=== PATIENT | female | born 1985 | race African-American/Black ===

== ENCOUNTER 2017-11-28 08:46 | Emergency (ER) | payer SELFPAY ==
[2017-11-28 08:55] VITALS: BP 108/59; BMI 25.5
--- NOTE | 2017-11-28 09:15 | DR.GENAD ---
HPI - PCP Primary Care Physician: MELISSA - Complaint/Symptoms Chief Complaint Doctors Comments: Patient admits to a can of pain falling on her left foot this morning. There is no swelling or erythema. Chief Complaint:: WAS MOVING AND PAINTING THIS MORNING AND A CAN OF PAINT FELL OVER AND LANDED ON HER LEFT FOOT - Source History Provided: Patient - Mode of Arrival Mode of Arrival: Ambulatory - Timing Onset of Chief Complaint: 11/28/17 PMH - PMH Past Medical History: Yes Past Medical History: Diabetes Past Surgical History: Yes Surgical History: No History - Family History History of Family Medical Conditions: Yes Family Medical History: Diabetes Mellitus - Social History Does patient currently use any type of tobacco product: No Have you used tobacco products in the last 12 months: No Type of Tobacco Use: None Does any household member use tobacco: No Alcohol Use: None Do you use any recreational Drugs:: No Lives With: Family Lives Where: Home - infectious screening In the last 2 months have you had wt loss of >10#?: NO Have you had fever, night sweats or hemotysis?: No Have you traveled outside the country in the last 6 months?: No Isolation: Standard ROS - Review of Systems Eyes: No Symptoms Reported ENTM: No Symptoms Reported Respiratoy: No Symptoms Reported Cardiovascular: No Symptoms Reported Gastrointestinal/Abdominal: No Symptoms Reported Genitourinary: No Symptoms Reported Neurological: No Symptoms Reported Musculoskeletal: No Symptoms Reported Integumentary: No Symptoms Reported Hematologic/Lymphatic: No Symptoms Reported Endocrine: No Symptoms Reported Psychiatric: No Symptoms Reported All Other Systems: Reviewed and Negative PE - Vital Signs Vitals: Temperature 98.3 F Pulse Rate 104 Respiratory Rate 20 Blood Pressure [Left Arm] 121/73 Blood Pressure [Right Arm] 112/68 Blood Pressure 108/59 O2 Sat by Pulse Oximetry 100 - General General Appearance: Alert, In No Apparent Distress - Head Head Exam: Normal Inspection, Atraumatic - Eyes Eye exam: Normal Appearance, PERRL, EOMI - ENT ENT Exam: Normal Exam, Normal Oropharynx External Ear Exam: Normal External Inspection TM/Canal Exam: Bilateral Normal Nose Exam: Normal Nose Exam Mouth Exam: Normal Inspection Throat Exam: Normal Inspection - Neck Neck Exam: Normal Inspection - Chest Chest Inspection: Normal Inspection, Symmetric Chest Wall Rise - Respiratory Respiratory Exam: Normal Lung Sounds Bilat Respiratory Exam: Bilateral Clear to Auscultation - Cardiovascular Cardiovascular Exam: Regular Rate, Normal Rhythm - Abdominal Exam Abdominal Exam: Normal Inspection, Normal Bowel Sounds Abdominal Tenderness: negative: RUQ, RLQ, LUQ, LLQ, Epigastrium, Suprapubic, Diffuse, Mild, Moderate, Severe, Other - Extremities Extremities Exam: Full ROM, Tenderness (mid foot of left lower extremity) - Back Back Exam: Normal Inspection - Neurologic Neurological Exam: Alert, Oriented X3, CN II-XII Intact - Psychiatric Psychiatric Exam: Normal Affect, Normal Mood - Skin Skin Exam: Warm, Dry, Intact ROR - XRAY XRAY Interpreted by: Self (Foot: negative) - Diagnosis Discharge Problem: Contusion of foot, right Qualifiers: Encounter type: initial encounter Qualified Code(s): S90.31XA - Contusion of right foot, initial encounter - Discharge Plan Condition: Stable - Follow ups/Referrals Follow ups/Referrals: Chavez TORRES [Primary Care Provider] - 3 days - Instructions
--- NOTE | 2017-11-28 09:53 | RAD ---
HISTORY: Blunt trauma left great toe Study: Left foot AP, lateral, oblique Comparison: None Findings: There is no evidence for fracture, lytic, or blastic lesion. No erosive arthritis or soft tissue abno rmality is identified. The tarsal bones are intact and normally aligned. The left great toe is intact . IMPRESSION: No significant abnormality identified Reported By:
== END 2017-11-28 10:09 | disposition home or self-care (01) ==
LOC: ER 09:00
DX: S90.31XA Contusion of right foot, initial encounter (principal); W19.XXXA Unspecified fall, initial encounter; Y92.9 Unspecified place or not applicable
CPT/HCPCS: 73630; 99282

== ENCOUNTER 2019-02-04 16:28 | Inpatient (IN) ==
[~2019-02-04 16:28] MED LIST: DIPRIVAN VIAL ONE; EPHEDRINE SULFATE INJ ONE; NEOSTIGMINE INJ ONE; NORCURON INJ 10 MG VIAL ONE; NS 1000 ML 1,000 ML IV ONE; QUELICIN (OR ANECTINE) ONE; ROBINUL ONE; SUPRANE ONE; ZOFRAN INJ 4 MG VIAL ONE
[2019-02-04] MEDS ORDERED: NS 1000 ML 1,000 ML ONE (16:49)
[2019-02-04] MEDS: DILAUDID INJ IVP PRN ×4 (17:00→19:10)
[2019-02-04 17:17] VITALS: BMI 27.1
[2019-02-04] MEDS ORDERED: LR 1000 ML IV 1,000 ML ONE (17:40)
[2019-02-04] MEDS ORDERED: D5 1/2 NS 1L W PITOCIN 20 UNITS/L 20 UNITS/1,000 ML BAG IV ONE ×2 (17:40→18:40)
[2019-02-04] MEDS ORDERED: ANCEF 1 GRAM IV PREMIX* 1 G/50 ML BAG IV ONE (17:40)
[2019-02-04] MEDS ORDERED: FENTANYL INJ 250 mcg ONE (17:51)
[2019-02-04] MEDS ORDERED: PITOCIN ONE (18:40)
[2019-02-04] MEDS ORDERED: REGLAN INJ 10 MG VIAL IVP PRN (18:42)
[2019-02-04] MEDS ORDERED: BENADRYL INJ 50 MG VIAL IVP PRN (18:42)
[2019-02-04] MEDS ORDERED: PHENERGAN INJ 25 MG IM PRN (18:42)
[2019-02-04] MEDS ORDERED: ZOFRAN INJ 4 MG VIAL IVP PRN (18:42)
[2019-02-04] MEDS ORDERED: DILAUDID INJ ONE ×2 (18:52→19:09)
[2019-02-04 19:35] LABS: ALANINE AMINOTRANSFERASE 8 Units/L (12-78); ALBUMIN 2.1 g/dL (3.4-5.0); ALKALINE PHOSPHATASE 75 Units/L (46-116); ASPARTATE AMINO TRANSFERASE 12 Units/L (15-37); BASOPHILS % (AUTO) 0.3 % (0.2-1.0); BLOOD UREA NITROGEN 5 mg/dL (7-18); CARBON DIOXIDE 22.5 mmol/L (21-32); CHLORIDE 105 mmol/L (98-107); COR CA(FOR HYPOALB) 9.5 mg/dL (8.5-10.1); COR NA(FOR HYPERGLY) 143 mmol/L (136-145); CREATININE 0.59 mg/dL (0.55-1.02); EOSINOPHILS # (AUTO) 0.1 x10^3/uL (0.0-0.2); EOSINOPHILS % (AUTO) 0.6 % (0.9-2.9); HEMATOCRIT 34.9 % (36.0-47.0); HEMOGLOBIN 11.5 g/dL (12.0-16.0); LYMPHOCYTES # (AUTO) 1.6 X10^3/uL (1.3-2.9); LYMPHOCYTES % (AUTO) 16.1 % (21.0-51.0); MEAN CORPUSCULAR HEMOGLOBIN 29.3 pg (27.0-34.0); MEAN CORPUSCULAR VOLUME 88.9 fL (80.0-100.0); MONOCYTES # (AUTO) 0.7 x10^3/uL (0.3-0.8); MONOCYTES % (AUTO) 6.8 % (0.0-13.0); NEUTROPHILS # (AUTO) 7.7 x10^3/uL (2.2-4.8); NEUTROPHILS % (AUTO) 76.2 % (42.0-75.0); PLATELET COUNT 186 X10^3/uL (150.0-450.0); RED BLOOD COUNT 3.92 X10^6/uL (3.5-5.4); RED CELL DISTRIBUTION WIDTH 12.2 % (11.6-16.5); SODIUM 138 mmol/L (136-145); TOTAL PROTEIN 5.5 g/dL (6.4-8.2); WHITE BLOOD COUNT 10.1 X10^3/uL (3.6-10.0); eGFR NON BLACK RACES > 60 (>60)
[2019-02-04] MEDS: SNACK - Diabetic Appropriate PO SCH (20:00)
[2019-02-04] MEDS ORDERED: D5 1/2 NS 1000 ML 1,000 ML with PITOCIN 20 UNITS IV SCH ×2 (20:00)
[2019-02-04] MEDS: MORPHINE SULFATE INJ 10 MG IVP PRN ×2 (20:18→23:58)
[2019-02-04] MEDS: ZANTAC PO SCH (20:19)
[2019-02-04] MEDS: HumuLIN R SUBCUT PRN (21:33)
[2019-02-05] MEDS ORDERED: MORPHINE SULFATE INJ 10 MG IVP PRN (00:18)
[2019-02-05] MEDS ORDERED: XANAX PO ONE (01:36)
[2019-02-05] MEDS ORDERED: XANAX ONE (01:47)
[2019-02-05] MEDS ORDERED: MORPHINE SULFATE INJ 10 MG ONE (04:24)
[2019-02-05] MEDS ORDERED: D5 1/2 NS 1000 ML 1,000 ML with PITOCIN 20 UNITS IV SCH ×2 (05:00)
[2019-02-05 05:19] LABS: BASOPHILS % (AUTO) 0.2 % (0.2-1.0); HEMATOCRIT 31.6 % (36.0-47.0); HEMOGLOBIN 10.5 g/dL (12.0-16.0); LYMPHOCYTES # (AUTO) 1.1 X10^3/uL (1.3-2.9); LYMPHOCYTES % (AUTO) 8.8 % (21.0-51.0); MEAN CORPUSCULAR HEMOGLOBIN 29.7 pg (27.0-34.0); MEAN CORPUSCULAR HGB CONC 33.1 g/dL (33.0-35.0); MEAN CORPUSCULAR VOLUME 89.8 fL (80.0-100.0); MEAN PLATELET VOLUME 9.1 fL (7.4-11.0); MONOCYTES % (AUTO) 7.4 % (0.0-13.0); NEUTROPHILS # (AUTO) 10.8 x10^3/uL (2.2-4.8); NEUTROPHILS % (AUTO) 83.6 % (42.0-75.0); PLATELET COUNT 190 X10^3/uL (150.0-450.0); RED BLOOD COUNT 3.52 X10^6/uL (3.5-5.4); RED CELL DISTRIBUTION WIDTH 12.3 % (11.6-16.5); WHITE BLOOD COUNT 12.9 X10^3/uL (3.6-10.0)
[2019-02-05] MEDS: HumuLIN R SUBCUT PRN ×2 (05:32→17:18)
[2019-02-05] MEDS ORDERED: MOTRIN TAB 800 MG PO PRN (08:00)
[2019-02-05] MEDS: COLACE CAP 100 MG PO SCH ×2 (09:25→21:30)
[2019-02-05] MEDS: ZANTAC PO SCH ×2 (09:26→21:30)
[2019-02-05] MEDS: PRENATAL PLUS PO SCH (09:26)
[2019-02-05] MEDS ORDERED: PERCOCET TAB 5/325 MG ONE ×2 (09:29→09:30)
[2019-02-05] MEDS: BACTROBAN CREAM TOP SCH ×2 (13:58→21:32)
[2019-02-05] MEDS: PERCOCET TAB 5/325 MG PO PRN ×2 (15:36→21:47)
[2019-02-05] MEDS: FERROUS GLUCONATE PO SCH (16:36)
[2019-02-05] MEDS ORDERED: PERCOCET TAB 5/325 MG PO PRN (19:15)
[2019-02-05] MEDS: SNACK - Diabetic Appropriate PO SCH (20:00)
[2019-02-05] MEDS ORDERED: LANTUS SC SCH (21:00)
[2019-02-06] MEDS: BACTROBAN CREAM TOP SCH ×2 (05:37→13:23)
[2019-02-06] MEDS: FERROUS GLUCONATE PO SCH ×2 (08:59→16:03)
[2019-02-06] MEDS: ZANTAC PO SCH (08:59)
[2019-02-06] MEDS: COLACE CAP 100 MG PO SCH (08:59)
[2019-02-06] MEDS: PRENATAL PLUS PO SCH (08:59)
[2019-02-06] MEDS: PERCOCET TAB 5/325 MG PO PRN ×2 (09:00→15:52)
[2019-02-06] MEDS ORDERED: ADACEL or BOOSTRIX TDaP VACCINE IM ONE ×2 (09:13→12:26)
[2019-02-06 16:13] VITALS: BP 110/71
[2019-02-06] MEDS: HumuLIN R SUBCUT PRN (17:12)
== END 2019-02-06 18:05 | disposition home or self-care (01) | DRG 783 ==
LOC: ER 16:28 → LD 17:00 → MED/SURG 19:18
PROVIDERS: ADMIT Obstetrics & Gynecology Obstetrics; ATTEND Specialist
DX: Z37.0 Single live birth; Z30.2 Encounter for sterilization; O24.12 Pre-existing type 2 diabetes mellitus, in childbirth; Z23 Encounter for immunization; O60.13X0 Preterm labor second trimester with preterm delivery third trimester, not applicable or unspecified; Z3A.29 29 weeks gestation of pregnancy; O77.9 Labor and delivery complicated by fetal stress, unspecified
CPT/HCPCS: 36415; 80053; 84132; 85025; 86592; 86850; 86900; 86901; 90715; 96365; 99284; A4216; A4222; S0197; J0330; J0690; J1170; J1815; J2270; J2405; J2590; J2704; J2710; J3010; J3490; J7030; J7120; S5010

== ENCOUNTER 2019-02-23 10:45 | Inpatient (IN) ==
--- NOTE | 2019-02-23 13:20 | DR.H&P ---
H&P - History & Physical for Day of: H&P Date: 02/23/19 - Chief Complaint Chief Complaint: FEVER, ABDOMINAL PAIN, ABSCESS TO RIGHT BUTTOCK NEAR "BUTT CREASE" - History of Present Illness History of Present Illness: 33 BF DIRECT ADMIT FROM DR GUILLEN OFFICE AFTER PRESENTING FOR ER FOLLOW UP CO ABSCESS TO RIGHT SIDE OF BUTTOCK NEAR RECTUM WITH SEVERE TENDERNESS AND CO FEVER AND FATIGUE. PT WAS SEEN IN ER 2 DAYS AGO AND GIVEN PO BACTRIM WITHOUT IMPROVEMENT. PT STATES HER ABDOMEN IS TIGHT AND VERY TENDER. PT HAS EMERGENCY C SECTION IN JANUARY ~09/07 LABOR AT 29 WEEKS. PT HAS PMH OF DM. PT STATES FEVER 102 WITH NO APPETITE, FEELS WEAK AND ALOT OF PAIN. - Past Medical History Past Medical History: Diabetes - Past Surgical History Surgical History: - Family History Family Medical History: Diabetes Mellitus - Social History Does patient currently use any type of tobacco product: No Have you used tobacco products in the last 12 months: No Type of Tobacco Use: None Does any household member use tobacco: No Alcohol Use: None Drug Use: None - Medications Home Medications: No Known Drug Allergies Allergy (Verified 02/04/19 17:17) - Review of Systems Constitutional: Fever, Chills, Sweats, Weakness, Malaise Eyes: No Symptoms Reported ENT: No Symptoms Reported Respiratory: SOB with Excertion Cardiovascular: No Symptoms Reported Gastrointestinal: Abdominal Pain Genitourinary: No Symptoms Reported Musculoskeletal: No Symptoms Reported Skin: Other (ABSCESS ) Neurological: Weakness - Physical Exam Vital Signs: Blood Pressure [Left Arm] 95/59 Blood Pressure [Right Arm] 95/61 Blood Pressure 95/59 Oriented: Normal Eyes: Normal Ear: Normal Nose: Normal Throat: Normal Respiratory: RLL Diminished, LLL Diminished Cardiovascular: Normal : Normal Auscultation: Bowel Sounds: Normal Palpation: Normal Tenderness: Diffuse, Severe Skin: Decreased Turgur, Red (RIGHT BUTTOCK NEAR RIGHT LABIAL), Tender, Hot, Other (CSECTION WOUND, HEALING) Musculoskeletal: Normal Speech Pattern: Clear - Assessment/Plan (1) Abdominal pain Status: Acute Plan: ADMIT, ADMISSION LABS. CBC CMP BC, UA UC. CT ABD/PELVIS WITH CONTRAST. PT IS POST CSECTION ON 02/04 WITH CO ABDOMINAL DISTENTION AND PAIN WITH FEVER, IV ATBX THERAPY, IV HYDRATION (2) Perineal abscess Status: Acute Plan: SEE CULTURE FROM ER VISIT. IV LEVAQUIN, SURGICAL CONSULT (3) Fever Status: Acute (4) Diabetes Status: Chronic - Allergies Allergies/Adverse Reactions: Allergies Allergy/AdvReac Type Severity Reaction Status Date / Time No Known Drug Allergies Allergy Verified 02/04/19 17:17
[2019-02-23] MEDS ORDERED: NS 500 ML IV 500 ML ONE (13:47)
--- NOTE | 2019-02-23 13:59 | RAD ---
History: Dyspnea on exertion Study: PA chest Comparison: May 12, 2016 Findings: The lungs are clear and the heart and mediastinum are unremarkable. There is no edema or effusion or congestion. No bony abnormality is demonstrated. Impression: No evidence for acute cardiopulmonary disease Reported By:
[2019-02-23 14:00] LABS: BASOPHILS # (AUTO) 0.2 X10^3/uL (0.0-0.1); BASOPHILS % (AUTO) 1.2 % (0.2-1.0); EOSINOPHILS % (AUTO) 0.3 % (0.9-2.9); HEMATOCRIT 28.7 % (36.0-47.0); HEMOGLOBIN 9.2 g/dL (12.0-16.0); LYMPHOCYTES # (AUTO) 1.5 X10^3/uL (1.3-2.9); LYMPHOCYTES % (AUTO) 10.6 % (21.0-51.0); MEAN CORPUSCULAR HEMOGLOBIN 26.8 pg (27.0-34.0); MEAN CORPUSCULAR HGB CONC 32.1 g/dL (33.0-35.0); MEAN CORPUSCULAR VOLUME 83.4 fL (80.0-100.0); MEAN PLATELET VOLUME 7.7 fL (7.4-11.0); MONOCYTES % (AUTO) 6.7 % (0.0-13.0); NEUTROPHILS # (AUTO) 11.8 x10^3/uL (2.2-4.8); NEUTROPHILS % (AUTO) 81.2 % (42.0-75.0); PLATELET COUNT 636 X10^3/uL (150.0-450.0); RED BLOOD COUNT 3.44 X10^6/uL (3.5-5.4); RED CELL DISTRIBUTION WIDTH 15.2 % (11.6-16.5); WHITE BLOOD COUNT 14.5 X10^3/uL (3.6-10.0)
[2019-02-23] MEDS: LEVAQUIN PREMIX IV 750 MG 750 MG/150 ML BAG IV SCH (14:03)
[2019-02-23] MEDS: TORADOL 15 MG VIAL IVP SCH ×2 (14:03→21:43)
[2019-02-23] MEDS: ZOLOFT PO SCH (14:03)
[2019-02-23 14:13] LABS: ALANINE AMINOTRANSFERASE 13 Units/L (12-78); ALBUMIN 2.2 g/dL (3.4-5.0); ALKALINE PHOSPHATASE 240 Units/L (46-116); ASPARTATE AMINO TRANSFERASE 11 Units/L (15-37); BLOOD UREA NITROGEN 4 mg/dL (7-18); CALCIUM 9.3 mg/dL (8.5-10.1); CHLORIDE 97 mmol/L (98-107); COR CA(FOR HYPOALB) 10.7 mg/dL (8.5-10.1); COR NA(FOR HYPERGLY) 139 mmol/L (136-145); CREATININE 0.64 mg/dL (0.55-1.02); SODIUM 135 mmol/L (136-145); TOTAL PROTEIN 8.6 g/dL (6.4-8.2); eGFR NON BLACK RACES > 60 (>60)
[2019-02-23] MEDS: PEPCID 20 MG IV PREMIX* 20 MG/50 ML BAG IV SCH ×2 (14:23→21:42)
[2019-02-23] MEDS: NS 500 ML IV 500 ML IV SCH (14:24)
[2019-02-23] MEDS ORDERED: NS 100 ML IV 100 ML ONE (16:11)
[2019-02-23 16:18] VITALS: BMI 26.4
[2019-02-23] MEDS: MORPHINE SULFATE INJ 2 MG INJ IVP PRN (16:50)
--- NOTE | 2019-02-23 16:53 | CT ---
CT OF THE ABDOMEN AND PELVIS WITH CONTRAST HISTORY: Abdominal pain and fever status post Comparison: None Technique: Multiple axial images of the abdomen and pelvis were obtained from the lung bases to the pubic symphysis follow the administration of IV contrast as well as oral contrast. Dose reduction techniques including Automated Exposure Control (AEC) and adjustment of mA and kV were utlized. Findings: The heart is normal in size. There is no pericardial effusion. Lung bases are clear without focal consolidation, pleural effusion or pneumothorax. Liver and spleen are normal in size, enhancement characteristics and contour. No focal lesions. The portal vein is patent. No ductal dilitation. Gallbladder is present. No calcified gallstones or gallbladder wall thickening. The pancreas is unremarkable. Adrenal glands are normal. Kidneys enhance symmetrically without hydronephrosis or nephrolithiasis. No bowel obstruction or inflammation. No abnormal appearing mesenteric or retroperitoneal lymph nodes. No free fluid or fluid collections. The bladder is normal in appearance. There appears to be a large defect in the anterior uterine wall with fluid and gas communicating between this defect and a multi-cystic loculated mass that appears to expand the rectus abdominus muscles. This defect in the uterus is seen best on series 4, image 59. The loculated fluid collection measures approximately 11 x 9 x 6 cm. No aggressive osseous lesions. IMPRESSION: 1. Findings as above highly concerning for severe endometritis with anterior wall uterine rupture and decompression of infection into the anterior abdominal wall where there is now a large loculated abscess within the anterior abdominal wall musculature. Recommend immediate RUBBER COMPOUNDER SUPERVISOR consultation. Reported By:
[2019-02-23] MEDS: FLAGYL IV PREMIX 500 MG BAG 500 MG/100 ML BAG IV SCH (21:42)
[2019-02-24] MEDS ORDERED: ZOSYN VIAL 4.5 GRAMS IV ONE (00:04)
[2019-02-24] MEDS ORDERED: NS 100 ML IV + SPIKE MINIBAG* 100 ML ONE (00:26)
[2019-02-24 06:20] LABS: BASOPHILS % (AUTO) 0.3 % (0.2-1.0); EOSINOPHILS # (AUTO) 0.1 x10^3/uL (0.0-0.2); EOSINOPHILS % (AUTO) 0.5 % (0.9-2.9); HEMOGLOBIN 8.3 g/dL (12.0-16.0); LYMPHOCYTES # (AUTO) 1.3 X10^3/uL (1.3-2.9); MEAN CORPUSCULAR HEMOGLOBIN 26.7 pg (27.0-34.0); MEAN CORPUSCULAR HGB CONC 31.9 g/dL (33.0-35.0); MEAN CORPUSCULAR VOLUME 83.7 fL (80.0-100.0); MEAN PLATELET VOLUME 8.1 fL (7.4-11.0); MONOCYTES # (AUTO) 1.3 x10^3/uL (0.3-0.8); MONOCYTES % (AUTO) 9.2 % (0.0-13.0); NEUTROPHILS # (AUTO) 11.8 x10^3/uL (2.2-4.8); PLATELET COUNT 524 X10^3/uL (150.0-450.0); RED CELL DISTRIBUTION WIDTH 15.5 % (11.6-16.5); WHITE BLOOD COUNT 14.6 X10^3/uL (3.6-10.0)
[2019-02-24] MEDS: FLAGYL IV PREMIX 500 MG BAG 500 MG/100 ML BAG IV SCH ×3 (06:20→21:47)
[2019-02-24] MEDS: TORADOL 15 MG VIAL IVP SCH (06:20)
[2019-02-24 06:34] LABS: ALANINE AMINOTRANSFERASE 13 Units/L (12-78); ALBUMIN 1.8 g/dL (3.4-5.0); ALKALINE PHOSPHATASE 228 Units/L (46-116); ASPARTATE AMINO TRANSFERASE 14 Units/L (15-37); BLOOD UREA NITROGEN 4 mg/dL (7-18); CALCIUM 8.5 mg/dL (8.5-10.1); CARBON DIOXIDE 27.8 mmol/L (21-32); CHLORIDE 98 mmol/L (98-107); COR CA(FOR HYPOALB) 10.3 mg/dL (8.5-10.1); COR NA(FOR HYPERGLY) 139 mmol/L (136-145); CREATININE 0.58 mg/dL (0.55-1.02); SODIUM 134 mmol/L (136-145); TOTAL PROTEIN 7.2 g/dL (6.4-8.2); eGFR NON BLACK RACES > 60 (>60)
[2019-02-24 07:07] LABS: PLATELET MORPHOLOGY COMMENT NORMAL (NORMAL)
[2019-02-24 08:06] LABS: BILIRUBIN,URINE NEGATIVE (NEGATIVE); BLOOD/HEMOGLOBIN,URINE 5+ (NEGATIVE); GLUCOSE, URINE 4+ (NEGATIVE); KETONES,URINE 3+ (NEGATIVE); LEUKOCYTE ESTERASE ,URINE 3+ (NEGATIVE); NITRITES,URINE NEGATIVE (NEGATIVE); PROTEIN,URINE 2+ (NEGATIVE); UROBILINOGEN,URINE NORMAL (NORMAL)
[2019-02-24 08:07] LABS: APPEARANCE,URINE HAZY (CLEAR); COLOR,URINE YELLOW (YELLOW)
[2019-02-24 08:13] LABS: BACTERIA,URINE TRACE /HPF (NEGATIVE); SQUAMOUS EPITHELIAL CELL,UR MODERATE /HPF (NEGATIVE)
[2019-02-24] MEDS: LEVAQUIN PREMIX IV 750 MG 750 MG/150 ML BAG IV SCH (09:22)
[2019-02-24] MEDS: PEPCID 20 MG IV PREMIX* 20 MG/50 ML BAG IV SCH ×2 (09:23→21:48)
[2019-02-24] MEDS: ZOSYN VIAL 4.5 GRAMS 4.5 G in NS 100 ML IV + SPIKE MINIBAG* 100 ML IV SCH ×3 (09:25→21:47)
[2019-02-24] MEDS: ZOLOFT PO SCH (11:38)
[2019-02-24] MEDS: HumuLIN R SUBCUT PRN ×2 (12:24→17:23)
[2019-02-24] MEDS: BACTROBAN CREAM TOP SCH ×2 (14:00→21:49)
[2019-02-24] MEDS: MORPHINE SULFATE INJ 2 MG INJ IVP PRN (18:15)
[2019-02-24] MEDS: SNACK - Diabetic Appropriate PO SCH (21:48)
[2019-02-24] MEDS: NS 500 ML IV 500 ML IV SCH (21:49)
[2019-02-24] MEDS ORDERED: COLACE CAP 100 MG PO PRN (21:53)
[2019-02-24] MEDS ORDERED: COLACE CAP 100 MG PO ONE (22:03)
[2019-02-24] MEDS: ZOFRAN INJ 4 MG VIAL IVP PRN (22:36)
[2019-02-25] MEDS ORDERED: K-RIDER 10 MEQ/NS 100 ML 10 MEQ/100 ML BAG IV PRN (00:04)
[2019-02-25] MEDS ORDERED: MICRO K EXTEN CAP 10 MEQ PO PRN (00:04)
[2019-02-25] MEDS ORDERED: POTASSIUM CHL 60 MEQ/NS 0.45% 500 ML IV PRN (00:04)
[2019-02-25] MEDS ORDERED: POTASSIUM CHL 40 MEQ/NS 0.45% 500 ML IV PRN (00:04)
[2019-02-25] MEDS ORDERED: POTASSIUM CHLORIDE LIQ 20 MEQ UDC PO PRN (00:04)
[2019-02-25] MEDS: MORPHINE SULFATE INJ 2 MG INJ IVP PRN (01:09)
[2019-02-25] MEDS ORDERED: POTASSIUM CHLORIDE LIQ 20 MEQ UDC ONE (01:22)
[2019-02-25] MEDS ORDERED: K-DUR TAB 20 MEQ ONE (01:53)
[2019-02-25] MEDS ORDERED: MAGNESIUM SULFATE 1 GRAM/100 mL PREMIX 2 G/200 ML BAG IV ONE (01:54)
[2019-02-25] MEDS: KLOR-CON PO PRN (02:00)
[2019-02-25] MEDS: MAGNESIUM SULFATE 1 GRAM/100 mL PREMIX 1 GM/100 ML BAG IV PRN ×2 (02:18→03:30)
[2019-02-25] MEDS: FLAGYL IV PREMIX 500 MG BAG 500 MG/100 ML BAG IV SCH ×3 (05:08→22:00)
[2019-02-25] MEDS: BACTROBAN CREAM TOP SCH ×3 (05:08→22:00)
[2019-02-25] MEDS: ZOSYN VIAL 4.5 GRAMS 4.5 G in NS 100 ML IV + SPIKE MINIBAG* 100 ML IV SCH ×3 (06:06→22:00)
[2019-02-25] MEDS: HumuLIN R SUBCUT PRN ×3 (06:06→17:06)
[2019-02-25 06:12] LABS: BASOPHILS # (AUTO) 0.1 X10^3/uL (0.0-0.1); EOSINOPHILS % (AUTO) 0.1 % (0.9-2.9); HEMATOCRIT 24.9 % (36.0-47.0); LYMPHOCYTES # (AUTO) 1.5 X10^3/uL (1.3-2.9); LYMPHOCYTES % (AUTO) 9.9 % (21.0-51.0); MEAN CORPUSCULAR HEMOGLOBIN 26.8 pg (27.0-34.0); MEAN CORPUSCULAR HGB CONC 32.3 g/dL (33.0-35.0); MEAN CORPUSCULAR VOLUME 83.1 fL (80.0-100.0); MEAN PLATELET VOLUME 7.7 fL (7.4-11.0); MONOCYTES % (AUTO) 6.4 % (0.0-13.0); NEUTROPHILS # (AUTO) 12.8 x10^3/uL (2.2-4.8); NEUTROPHILS % (AUTO) 82.6 % (42.0-75.0); PLATELET COUNT 528 X10^3/uL (150.0-450.0); RED BLOOD COUNT 2.99 X10^6/uL (3.5-5.4); RED CELL DISTRIBUTION WIDTH 15.8 % (11.6-16.5); WHITE BLOOD COUNT 15.4 X10^3/uL (3.6-10.0)
[2019-02-25 06:29] LABS: ALANINE AMINOTRANSFERASE 11 Units/L (12-78); ALBUMIN 1.8 g/dL (3.4-5.0); ALKALINE PHOSPHATASE 247 Units/L (46-116); ASPARTATE AMINO TRANSFERASE 12 Units/L (15-37); BLOOD UREA NITROGEN 3 mg/dL (7-18); CALCIUM 8.4 mg/dL (8.5-10.1); CARBON DIOXIDE 28.3 mmol/L (21-32); CHLORIDE 100 mmol/L (98-107); COR CA(FOR HYPOALB) 10.2 mg/dL (8.5-10.1); COR NA(FOR HYPERGLY) 143 mmol/L (136-145); CREATININE 0.64 mg/dL (0.55-1.02); SODIUM 136 mmol/L (136-145); TOTAL PROTEIN 7.2 g/dL (6.4-8.2); eGFR NON BLACK RACES > 60 (>60)
[2019-02-25 06:52] LABS: PLATELET MORPHOLOGY COMMENT NORMAL (NORMAL)
[2019-02-25] MEDS: LEVAQUIN PREMIX IV 750 MG 750 MG/150 ML BAG IV SCH (09:18)
[2019-02-25] MEDS: ZOLOFT PO SCH (09:18)
[2019-02-25] MEDS: PEPCID 20 MG IV PREMIX* 20 MG/50 ML BAG IV SCH ×2 (09:18→20:56)
--- NOTE | 2019-02-25 10:35 | DR.PROGNOT ---
Hospital Progress Notes - Progress Note for Day of: Progress Note Date: 02/25/19 - Chief Complaint Chief Complaint: moderate drainage from perianal abscess . pain is much better . no fever today . - Past Medical Family Social History Past Med/Fam/Surg Hx: No changes since H&P Allergies: Allergies No Known Drug Allergies Allergy (Verified 02/04/19 17:17) - Review Of Systems ROS: No change since H&P - Vital Signs Vital Signs: Temperature 98.3 F Pulse Rate [Radial] 103 Respiratory Rate 20 Blood Pressure [Left Arm] 100/60 Blood Pressure [Right Arm] 95/61 Blood Pressure 95/59 O2 Sat by Pulse Oximetry 98 - Physical Exam Oriented: Normal Eyes: Normal Ear: Normal Nose: Normal Throat: Normal Cardiovascular: Normal : Normal GI:Auscultation: Normal GI:Palpation: Normal GI: Tenderness: Diffuse (.) Skin: Decreased Turgur, Tender, Hot, Other (rectal exam : improving perianal abscess with soft skin , mild tenderness ) Musculoskeletal: Normal Speech Pattern: Clear, Appropriate - Laboratory and Diagnostics Result Diagrams: 02/25/19 05:27 02/25/19 05:27 Labs: 02/23/19 13:49 Blood Blood Culture - Preliminary 02/23/19 13:41 Blood Blood Culture - Preliminary Laboratory WBC 15.4 X10^3/uL (3.6-10.0) H 02/25/19 05:27 RBC 2.99 X10^6/uL (3.5-5.4) L 02/25/19 05:27 Hgb 8.0 g/dL (12.0-16.0) L 02/25/19 05:27 Hct 24.9 % (36.0-47.0) L 02/25/19 05:27 MCV 83.1 fL (80.0-100.0) 02/25/19 05:27 MCH 26.8 pg (27.0-34.0) L 02/25/19 05:27 MCHC 32.3 g/dL (33.0-35.0) L 02/25/19 05:27 RDW 15.8 % (11.6-16.5) 02/25/19 05:27 Plt Count 528 X10^3/uL (150.0-450.0) H 02/25/19 05:27 Plt Count Comment Increased (ADEQUATE) A 02/25/19 05:27 MPV 7.7 fL (7.4-11.0) 02/25/19 05:27 Neut % (Auto) 82.6 % (42.0-75.0) H 02/25/19 05:27 Lymph % (Auto) 9.9 % (21.0-51.0) L 02/25/19 05:27 [place] % (Auto) 6.4 % (0.0-13.0) 02/25/19 05:27 Eos % (Auto) 0.1 % (0.9-2.9) L 02/25/19 05:27 Baso % (Auto) 1.0 % (0.2-1.0) 02/25/19 05:27 Neut # (Auto) 12.8 x10^3/uL (2.2-4.8) H 02/25/19 05:27 Lymph # (Auto) 1.5 X10^3/uL (1.3-2.9) 02/25/19 05:27 [place] # (Auto) 1.0 x10^3/uL (0.3-0.8) H 02/25/19 05:27 Eos # (Auto) 0.0 x10^3/uL (0.0-0.2) 02/25/19 05:27 Baso # (Auto) 0.1 X10^3/uL (0.0-0.1) 02/25/19 05:27 Absolute Nucleated RBC 0.0 /100WBC 02/25/19 05:27 Plt Morphology Comment Normal (NORMAL) 02/25/19 05:27 RBC Morphology Normal (NORMAL) 02/25/19 05:27 Sodium 136 mmol/L (136-145) 02/25/19 05:27 Corrected Sodium 143 mmol/L (136-145) 02/25/19 05:27 Potassium 3.9 mmol/L (3.5-5.1) 02/25/19 05:27 Chloride 100 mmol/L (98-107) 02/25/19 05:27 Carbon Dioxide 28.3 mmol/L (21-32) 02/25/19 05:27 BUN 3 mg/dL (7-18) L 02/25/19 05:27 Creatinine 0.64 mg/dL (0.55-1.02) 02/25/19 05:27 Est GFR (MDRD) Af Amer > 60 (>60) 02/25/19 05:27 Est GFR (MDRD) Non-Af > 60 (>60) 02/25/19 05:27 Glucose 405 mg/dL (65-99) H 02/25/19 05:27 Calcium 8.4 mg/dL (8.5-10.1) L 02/25/19 05:27 Corrected Calcium 10.2 mg/dL (8.5-10.1) H 02/25/19 05:27 Magnesium 2.6 mg/dL (1.7-2.9) 02/25/19 05:27 Total Bilirubin 0.30 mg/dL (0.2-1.0) 02/25/19 05:27 AST 12 Units/L (15-37) L 02/25/19 05:27 ALT 11 Units/L (12-78) L 02/25/19 05:27 Alkaline Phosphatase 247 Units/L (46-116) H 02/25/19 05:27 Total Protein 7.2 g/dL (6.4-8.2) 02/25/19 05:27 Albumin 1.8 g/dL (3.4-5.0) L 02/25/19 05:27 Globulin 5.4 g/dL (2.5-4.5) H 02/25/19 05:27 Albumin/Globulin Ratio 0.3 Ratio (1.1-2.1) L 02/25/19 05:27 Specimen Type Random urine 02/24/19 07:57 Urine Color Yellow (YELLOW) 02/24/19 07:57 Urine Appearance Hazy (CLEAR) 02/24/19 07:57 Urine pH 6.0 (5.0 - 8.0) 02/24/19 07:57 Ur Specific [place] 1.010 (1.000-1.030) 02/24/19 07:57 Urine Protein 2+ (NEGATIVE) 02/24/19 07:57 Urine Glucose (UA) 4+ (NEGATIVE) 02/24/19 07:57 Urine Ketones 3+ (NEGATIVE) 02/24/19 07:57 Urine Occult Blood 5+ (NEGATIVE) 02/24/19 07:57 Urine Nitrite Negative (NEGATIVE) 02/24/19 07:57 Urine Bilirubin Negative (NEGATIVE) 02/24/19 07:57 Urine Urobilinogen Normal (NORMAL) 02/24/19 07:57 Ur Leukocyte Esterase 3+ (NEGATIVE) 02/24/19 07:57 Urine RBC 10-20 /HPF (NONE SEEN) 02/24/19 07:57 Urine WBC Tntc /HPF (NONE SEEN) 02/24/19 07:57 Ur Squamous Epith Cells Moderate /HPF (NEGATIVE) 02/24/19 07:57 Urine Bacteria Trace /HPF (NEGATIVE) 02/24/19 07:57 Ur Culture Indicated? No/not indicated 02/24/19 07:57 Blood Type A POSITIVE 02/23/19 17:45 Antibody Screen Negative 02/23/19 17:45 - Assessment and Plan 1: resolving perianal abscess . same IV ATB , sitzbath , local care and future colonoscopy .. - Problem Patient Problems: Patient Problems Abdominal pain (Acute) R10.9 Perineal abscess (Acute) L02.215 Fever (Acute) R50.9
[2019-02-25] MEDS: COLACE CAP 100 MG PO SCH (12:32)
[2019-02-25] MEDS: TORADOL 30 MG VIAL IVP SCH ×2 (12:33→20:55)
[2019-02-25] MEDS ORDERED: MILK OF MAGNESIA ONE (15:20)
[2019-02-25] MEDS: MILK OF MAGNESIA PO SCH ×2 (16:41→20:55)
[2019-02-25] MEDS: ZOFRAN INJ 4 MG VIAL IVP PRN (18:33)
[2019-02-25] MEDS: NS 500 ML IV 500 ML IV SCH (20:55)
[2019-02-25] MEDS: SNACK - Diabetic Appropriate PO SCH (20:55)
[2019-02-25] MEDS: MIRALAX POWDER (1 DOSE 17 G) PO SCH (20:56)
[2019-02-26] MEDS: COLACE CAP 100 MG PO SCH ×2 (01:16→13:11)
[2019-02-26] MEDS: TORADOL 30 MG VIAL IVP SCH (04:12)
[2019-02-26] MEDS: ZOFRAN INJ 4 MG VIAL IVP PRN ×2 (04:12→13:10)
[2019-02-26] MEDS: BACTROBAN CREAM TOP SCH ×3 (05:15→21:29)
[2019-02-26] MEDS: ZOSYN VIAL 4.5 GRAMS 4.5 G in NS 100 ML IV + SPIKE MINIBAG* 100 ML IV SCH ×3 (05:15→21:27)
[2019-02-26] MEDS: FLAGYL IV PREMIX 500 MG BAG 500 MG/100 ML BAG IV SCH ×3 (05:15→21:28)
[2019-02-26 06:08] LABS: BASOPHILS # (AUTO) 0.1 X10^3/uL (0.0-0.1); BASOPHILS % (AUTO) 0.7 % (0.2-1.0); EOSINOPHILS # (AUTO) 0.1 x10^3/uL (0.0-0.2); EOSINOPHILS % (AUTO) 0.5 % (0.9-2.9); HEMOGLOBIN 7.9 g/dL (12.0-16.0); LYMPHOCYTES # (AUTO) 1.5 X10^3/uL (1.3-2.9); LYMPHOCYTES % (AUTO) 11.7 % (21.0-51.0); MEAN CORPUSCULAR HEMOGLOBIN 27.1 pg (27.0-34.0); MEAN CORPUSCULAR HGB CONC 32.8 g/dL (33.0-35.0); MEAN CORPUSCULAR VOLUME 82.5 fL (80.0-100.0); MEAN PLATELET VOLUME 7.6 fL (7.4-11.0); NEUTROPHILS # (AUTO) 10.1 x10^3/uL (2.2-4.8); NEUTROPHILS % (AUTO) 79.1 % (42.0-75.0); PLATELET COUNT 476 X10^3/uL (150.0-450.0); RED BLOOD COUNT 2.91 X10^6/uL (3.5-5.4); RED CELL DISTRIBUTION WIDTH 15.5 % (11.6-16.5); WHITE BLOOD COUNT 12.7 X10^3/uL (3.6-10.0)
[2019-02-26] MEDS: HumuLIN R SUBCUT PRN ×3 (06:11→21:28)
[2019-02-26 06:34] LABS: ALANINE AMINOTRANSFERASE 9 Units/L (12-78); ALBUMIN 1.8 g/dL (3.4-5.0); ALKALINE PHOSPHATASE 214 Units/L (46-116); ASPARTATE AMINO TRANSFERASE 9 Units/L (15-37); BLOOD UREA NITROGEN 4 mg/dL (7-18); CALCIUM 8.2 mg/dL (8.5-10.1); CARBON DIOXIDE 28.2 mmol/L (21-32); CHLORIDE 101 mmol/L (98-107); COR NA(FOR HYPERGLY) 141 mmol/L (136-145); CREATININE 0.56 mg/dL (0.55-1.02); SODIUM 137 mmol/L (136-145); TOTAL PROTEIN 6.8 g/dL (6.4-8.2); eGFR NON BLACK RACES > 60 (>60)
[2019-02-26 06:42] LABS: HYPOCHROMASIA 1+; PLATELET MORPHOLOGY COMMENT NORMAL (NORMAL)
[2019-02-26] MEDS: PEPCID 20 MG IV PREMIX* 20 MG/50 ML BAG IV SCH ×3 (09:11→21:27)
[2019-02-26] MEDS: LEVAQUIN PREMIX IV 750 MG 750 MG/150 ML BAG IV SCH (09:11)
[2019-02-26] MEDS: MILK OF MAGNESIA PO SCH ×4 (09:12→21:29)
[2019-02-26] MEDS: ZOLOFT PO SCH (09:12)
[2019-02-26] MEDS: ULTRAM PO PRN ×2 (09:19→21:37)
[2019-02-26] MEDS ORDERED: NS 500 ML IV 500 ML IV ONE (12:09)
[2019-02-26] MEDS ORDERED: BENADRYL INJ 50 MG VIAL IVP PRN (12:09)
[2019-02-26] MEDS ORDERED: PHARMACY CONSULT - DOSE _____ XX SCH (13:00)
[2019-02-26] MEDS ORDERED: DEXFERRUM or INFED 25 MG in NS 100 ML IV 100 ML IV NR (13:00)
[2019-02-26] MEDS: LANTUS SC SCH (13:50)
[2019-02-26] MEDS ORDERED: DEXFERRUM or INFED 975 MG in NS 500 ML IV 500 ML IV NR (14:00)
--- NOTE | 2019-02-26 17:49 | PCM.PROG ---
Progress Note - Progress Note for Day of Date of Exam: 02/24/19 - Subjective Subjective: 33 WF ADMITTED ON 02/23 WITH FEVER, ABDOMINAL PAIN POST C SECTION, VANNA RECTAL ABSCESS, FAILED OUT PT TREATMENT. PT WBC 14.6 THIS AM. CURRENTLY ON IV LEVAQUIN, FLAGYL STARTED PER DR AQUINO. SURGEON CONSULTED FOR POSSIBLE I& D OF ABSCESS. PT HAD CULTURE IN ER PRIOR TO THIS ADMISSION. PT ALSO HAD CT ABD PELVIS WITH RESULTS- Findings as above highly concerning for severe endometritis with anterior. wall uterine rupture and decompression of infection into the anterior abdominal wall where there is now a large loculated abscess within the anterior abdominal wall musculature. Recommend immediate SENIOR STRATEGY MANAGER consultation. DR BROWN CONSULTED. PT ABDOMINAL DISTENTION IMPROVING, SOFTER ON EXAM AND PT REPORTS "IT FEELS NOT TIGHT TODAY" PT ALSO HAD DECREASED SWELLING TO RIGHT BUTTOCKS NEAR RECTUM WITH PURULENT DC DRAINING. - Past Medical Family Social History Past Med/Fam/Surg Hx: No changes since H&P Allergies: Allergies No Known Drug Allergies Allergy (Verified 02/04/19 17:17) - Review of Systems ROS: No change since H&P - Vital Signs and I&O's Vital Signs: Temperature 99 F Pulse Rate [Left Brachial] 106 Pulse Rate [Radial] 100 Respiratory Rate 20 Blood Pressure [Left Arm] 108/65 Blood Pressure [Right Arm] 95/61 Blood Pressure 95/59 O2 Sat by Pulse Oximetry 98 Intake and Output: Intake & Output 02/24/19 02/25/19 02/26/19 02/27/19 11:59 11:59 11:59 11:59 Intake Total 740 / 740 2674 / 2674 2914 / 2914 480 / 480 Balance 740 / 740 2674 / 2674 2914 / 2914 480 / 480 - Physical Exam Oriented: Normal Eyes: Normal Ear: Normal Nose: Normal Throat: Normal Respiratory: Normal Cardiovascular: Normal : Normal Auscultation: Bowel Sounds: Normal Tenderness: Diffuse (.) Skin: Decreased Turgur, Tender, Hot, Other (rectal exam : improving perianal abscess with soft skin , mild tenderness ) Musculoskeletal: Normal Speech Pattern: Clear, Appropriate - Laboratory and Diagnostics Result Diagrams: 02/26/19 05:05 02/26/19 05:05 Labs: 02/25/19 17:30 Urine,Clean Catch Urine Culture - Preliminary 02/23/19 13:49 Blood Blood Culture - Preliminary 02/23/19 13:41 Blood Blood Culture - Preliminary Laboratory WBC 12.7 X10^3/uL (3.6-10.0) H 02/26/19 05:05 RBC 2.91 X10^6/uL (3.5-5.4) L 02/26/19 05:05 Hgb 7.9 g/dL (12.0-16.0) L 02/26/19 05:05 Hct 24.0 % (36.0-47.0) L 02/26/19 05:05 MCV 82.5 fL (80.0-100.0) 02/26/19 05:05 MCH 27.1 pg (27.0-34.0) 02/26/19 05:05 MCHC 32.8 g/dL (33.0-35.0) L 02/26/19 05:05 RDW 15.5 % (11.6-16.5) 02/26/19 05:05 Plt Count 476 X10^3/uL (150.0-450.0) H 02/26/19 05:05 Plt Count Comment Increased (ADEQUATE) A 02/26/19 05:05 MPV 7.6 fL (7.4-11.0) 02/26/19 05:05 Neut % (Auto) 79.1 % (42.0-75.0) H 02/26/19 05:05 Lymph % (Auto) 11.7 % (21.0-51.0) L 02/26/19 05:05 [place] % (Auto) 8.0 % (0.0-13.0) 02/26/19 05:05 Eos % (Auto) 0.5 % (0.9-2.9) L 02/26/19 05:05 Baso % (Auto) 0.7 % (0.2-1.0) 02/26/19 05:05 Neut # (Auto) 10.1 x10^3/uL (2.2-4.8) H 02/26/19 05:05 Lymph # (Auto) 1.5 X10^3/uL (1.3-2.9) 02/26/19 05:05 [place] # (Auto) 1.0 x10^3/uL (0.3-0.8) H 02/26/19 05:05 Eos # (Auto) 0.1 x10^3/uL (0.0-0.2) 02/26/19 05:05 Baso # (Auto) 0.1 X10^3/uL (0.0-0.1) 02/26/19 05:05 Absolute Nucleated RBC 0.1 /100WBC 02/26/19 05:05 Plt Morphology Comment Normal (NORMAL) 02/26/19 05:05 RBC Morphology Abnormal (NORMAL) A 02/26/19 05:05 Hypochromasia 1+ A 02/26/19 05:05 Sodium 137 mmol/L (136-145) 02/26/19 05:05 Corrected Sodium 141 mmol/L (136-145) 02/26/19 05:05 Potassium 3.7 mmol/L (3.5-5.1) 02/26/19 05:05 Chloride 101 mmol/L (98-107) 02/26/19 05:05 Carbon Dioxide 28.2 mmol/L (21-32) 02/26/19 05:05 BUN 4 mg/dL (7-18) L 02/26/19 05:05 Creatinine 0.56 mg/dL (0.55-1.02) 02/26/19 05:05 Est GFR (MDRD) Af Amer > 60 (>60) 02/26/19 05:05 Est GFR (MDRD) Non-Af > 60 (>60) 02/26/19 05:05 Glucose 267 mg/dL (65-99) H 02/26/19 05:05 POC Glucose (mg/dL) 272 mg/dL (65-99) H 02/26/19 16:23 Calcium 8.2 mg/dL (8.5-10.1) L 02/26/19 05:05 Corrected Calcium 10.0 mg/dL (8.5-10.1) 02/26/19 05:05 Magnesium 2.6 mg/dL (1.7-2.9) 02/25/19 05:27 Iron 38 ug/dL (50-175) L 02/26/19 05:05 Transferrin 132 mg/dL (202-364) L 02/26/19 05:05 Ferritin 213 ng/mL (8-252) 02/26/19 05:05 Total Bilirubin 0.30 mg/dL (0.2-1.0) 02/26/19 05:05 AST 9 Units/L (15-37) L 02/26/19 05:05 ALT 9 Units/L (12-78) L 02/26/19 05:05 Alkaline Phosphatase 214 Units/L (46-116) H 02/26/19 05:05 Total Protein 6.8 g/dL (6.4-8.2) 02/26/19 05:05 Albumin 1.8 g/dL (3.4-5.0) L 02/26/19 05:05 Globulin 5.0 g/dL (2.5-4.5) H 02/26/19 05:05 Albumin/Globulin Ratio 0.4 Ratio (1.1-2.1) L 02/26/19 05:05 Vitamin B12 918 pg/mL (193-986) 02/26/19 05:05 Folate 5.9 ng/mL (>8.6) L 02/26/19 05:05 Specimen Type Random urine 02/24/19 07:57 Urine Color Yellow (YELLOW) 02/24/19 07:57 Urine Appearance Hazy (CLEAR) 02/24/19 07:57 Urine pH 6.0 (5.0 - 8.0) 02/24/19 07:57 Ur Specific [place] 1.010 (1.000-1.030) 02/24/19 07:57 Urine Protein 2+ (NEGATIVE) 02/24/19 07:57 Urine Glucose (UA) 4+ (NEGATIVE) 02/24/19 07:57 Urine Ketones 3+ (NEGATIVE) 02/24/19 07:57 Urine Occult Blood 5+ (NEGATIVE) 02/24/19 07:57 Urine Nitrite Negative (NEGATIVE) 02/24/19 07:57 Urine Bilirubin Negative (NEGATIVE) 02/24/19 07:57 Urine Urobilinogen Normal (NORMAL) 02/24/19 07:57 Ur Leukocyte Esterase 3+ (NEGATIVE) 02/24/19 07:57 Urine RBC 10-20 /HPF (NONE SEEN) 02/24/19 07:57 Urine WBC Tntc /HPF (NONE SEEN) 02/24/19 07:57 Ur Squamous Epith Cells Moderate /HPF (NEGATIVE) 02/24/19 07:57 Urine Bacteria Trace /HPF (NEGATIVE) 02/24/19 07:57 Ur Culture Indicated? No/not indicated 02/24/19 07:57 Blood Type A POSITIVE 02/26/19 12:39 Antibody Screen Negative 02/26/19 12:39 Crossmatch See Detail 02/26/19 12:39 - Plan (1) Abdominal pain Status: Acute Plan: AM LABS. CBC CMP BC, UA UC. CT ABD/PELVIS WITH CONTRAST ON ADMISSION, SENIOR STRATEGY MANAGER CONSULTED. IV ATBX THERAPY, IV HYDRATION (2) Perineal abscess Status: Acute Plan: SEE CULTURE FROM ER VISIT. IV LEVAQUIN, FLAGYL. DR AQUINO CONSULTING (3) Fever Status: Acute (4) Diabetes Status: Chronic
--- NOTE | 2019-02-26 17:52 | PCM.PROG ---
Progress Note - Progress Note for Day of Date of Exam: 02/25/19 - Subjective Subjective: 33 WF ADMITTED ON 02/23 WITH FEVER, ABDOMINAL PAIN POST C SECTION, VANNA RECTAL ABSCESS, FAILED OUT PT TREATMENT. PT WBC 15.4 THIS AM. CURRENTLY ON IV LEVAQUIN, ZOSYN, AND FLAGYL STARTED PER DR AQUINO. SURGEON CONSULTED FOR POSSIBLE I& D OF ABSCESS. PT HAD CULTURE IN ER PRIOR TO THIS ADMISSION. PT ALSO HAD CT ABD PELVIS WITH RESULTS- Findings as above highly concerning for severe endometritis with anterior wall uterine rupture and decompression of infection into the anterior abdominal wall where there is now a large loculated abscess within the anterior abdominal wall musculature. Recommend MANUSCRIPT EDITOR consultation. DR BROWN CONSULTED. PT ABDOMINAL DISTENTION IMPROVING, SOFTER ON EXAM AND PT REPORTS "IT FEELS NOT TIGHT TODAY" PT ALSO HAD DECREASED SWELLING TO RIGHT BUTTOCKS NEAR RECTUM WITH PURULENT DC DRAINING. PT CO INCREASED PAIN, PREVIOUSLY CONTROLLED WITH TORADOL. - Past Medical Family Social History Past Med/Fam/Surg Hx: No changes since H&P Allergies: Allergies No Known Drug Allergies Allergy (Verified 02/04/19 17:17) - Review of Systems ROS: No change since H&P - Vital Signs and I&O's Vital Signs: Temperature 99 F Pulse Rate [Left Brachial] 106 Pulse Rate [Radial] 100 Respiratory Rate 20 Blood Pressure [Left Arm] 108/65 Blood Pressure [Right Arm] 95/61 Blood Pressure 95/59 O2 Sat by Pulse Oximetry 98 Intake and Output: Intake & Output 02/24/19 02/25/19 02/26/19 02/27/19 11:59 11:59 11:59 11:59 Intake Total 740 / 740 2674 / 2674 2914 / 2914 480 / 480 Balance 740 / 740 2674 / 2674 2914 / 2914 480 / 480 - Physical Exam Oriented: Normal Eyes: Normal Ear: Normal Nose: Normal Throat: Normal Respiratory: Normal Cardiovascular: Normal : Normal Auscultation: Bowel Sounds: Normal Tenderness: Diffuse (.) Skin: Decreased Turgur, Tender, Hot, Other (rectal exam : improving perianal abscess with soft skin , mild tenderness ) Musculoskeletal: Normal Speech Pattern: Clear, Appropriate - Laboratory and Diagnostics Result Diagrams: 02/26/19 05:05 02/26/19 05:05 Labs: 02/25/19 17:30 Urine,Clean Catch Urine Culture - Preliminary 02/23/19 13:49 Blood Blood Culture - Preliminary 02/23/19 13:41 Blood Blood Culture - Preliminary Laboratory WBC 12.7 X10^3/uL (3.6-10.0) H 02/26/19 05:05 RBC 2.91 X10^6/uL (3.5-5.4) L 02/26/19 05:05 Hgb 7.9 g/dL (12.0-16.0) L 02/26/19 05:05 Hct 24.0 % (36.0-47.0) L 02/26/19 05:05 MCV 82.5 fL (80.0-100.0) 02/26/19 05:05 MCH 27.1 pg (27.0-34.0) 02/26/19 05:05 MCHC 32.8 g/dL (33.0-35.0) L 02/26/19 05:05 RDW 15.5 % (11.6-16.5) 02/26/19 05:05 Plt Count 476 X10^3/uL (150.0-450.0) H 02/26/19 05:05 Plt Count Comment Increased (ADEQUATE) A 02/26/19 05:05 MPV 7.6 fL (7.4-11.0) 02/26/19 05:05 Neut % (Auto) 79.1 % (42.0-75.0) H 02/26/19 05:05 Lymph % (Auto) 11.7 % (21.0-51.0) L 02/26/19 05:05 [place] % (Auto) 8.0 % (0.0-13.0) 02/26/19 05:05 Eos % (Auto) 0.5 % (0.9-2.9) L 02/26/19 05:05 Baso % (Auto) 0.7 % (0.2-1.0) 02/26/19 05:05 Neut # (Auto) 10.1 x10^3/uL (2.2-4.8) H 02/26/19 05:05 Lymph # (Auto) 1.5 X10^3/uL (1.3-2.9) 02/26/19 05:05 [place] # (Auto) 1.0 x10^3/uL (0.3-0.8) H 02/26/19 05:05 Eos # (Auto) 0.1 x10^3/uL (0.0-0.2) 02/26/19 05:05 Baso # (Auto) 0.1 X10^3/uL (0.0-0.1) 02/26/19 05:05 Absolute Nucleated RBC 0.1 /100WBC 02/26/19 05:05 Plt Morphology Comment Normal (NORMAL) 02/26/19 05:05 RBC Morphology Abnormal (NORMAL) A 02/26/19 05:05 Hypochromasia 1+ A 02/26/19 05:05 Sodium 137 mmol/L (136-145) 02/26/19 05:05 Corrected Sodium 141 mmol/L (136-145) 02/26/19 05:05 Potassium 3.7 mmol/L (3.5-5.1) 02/26/19 05:05 Chloride 101 mmol/L (98-107) 02/26/19 05:05 Carbon Dioxide 28.2 mmol/L (21-32) 02/26/19 05:05 BUN 4 mg/dL (7-18) L 02/26/19 05:05 Creatinine 0.56 mg/dL (0.55-1.02) 02/26/19 05:05 Est GFR (MDRD) Af Amer > 60 (>60) 02/26/19 05:05 Est GFR (MDRD) Non-Af > 60 (>60) 02/26/19 05:05 Glucose 267 mg/dL (65-99) H 02/26/19 05:05 POC Glucose (mg/dL) 272 mg/dL (65-99) H 02/26/19 16:23 Calcium 8.2 mg/dL (8.5-10.1) L 02/26/19 05:05 Corrected Calcium 10.0 mg/dL (8.5-10.1) 02/26/19 05:05 Magnesium 2.6 mg/dL (1.7-2.9) 02/25/19 05:27 Iron 38 ug/dL (50-175) L 02/26/19 05:05 Transferrin 132 mg/dL (202-364) L 02/26/19 05:05 Ferritin 213 ng/mL (8-252) 02/26/19 05:05 Total Bilirubin 0.30 mg/dL (0.2-1.0) 02/26/19 05:05 AST 9 Units/L (15-37) L 02/26/19 05:05 ALT 9 Units/L (12-78) L 02/26/19 05:05 Alkaline Phosphatase 214 Units/L (46-116) H 02/26/19 05:05 Total Protein 6.8 g/dL (6.4-8.2) 02/26/19 05:05 Albumin 1.8 g/dL (3.4-5.0) L 02/26/19 05:05 Globulin 5.0 g/dL (2.5-4.5) H 02/26/19 05:05 Albumin/Globulin Ratio 0.4 Ratio (1.1-2.1) L 02/26/19 05:05 Vitamin B12 918 pg/mL (193-986) 02/26/19 05:05 Folate 5.9 ng/mL (>8.6) L 02/26/19 05:05 Specimen Type Random urine 02/24/19 07:57 Urine Color Yellow (YELLOW) 02/24/19 07:57 Urine Appearance Hazy (CLEAR) 02/24/19 07:57 Urine pH 6.0 (5.0 - 8.0) 02/24/19 07:57 Ur Specific [place] 1.010 (1.000-1.030) 02/24/19 07:57 Urine Protein 2+ (NEGATIVE) 02/24/19 07:57 Urine Glucose (UA) 4+ (NEGATIVE) 02/24/19 07:57 Urine Ketones 3+ (NEGATIVE) 02/24/19 07:57 Urine Occult Blood 5+ (NEGATIVE) 02/24/19 07:57 Urine Nitrite Negative (NEGATIVE) 02/24/19 07:57 Urine Bilirubin Negative (NEGATIVE) 02/24/19 07:57 Urine Urobilinogen Normal (NORMAL) 02/24/19 07:57 Ur Leukocyte Esterase 3+ (NEGATIVE) 02/24/19 07:57 Urine RBC 10-20 /HPF (NONE SEEN) 02/24/19 07:57 Urine WBC Tntc /HPF (NONE SEEN) 02/24/19 07:57 Ur Squamous Epith Cells Moderate /HPF (NEGATIVE) 02/24/19 07:57 Urine Bacteria Trace /HPF (NEGATIVE) 02/24/19 07:57 Ur Culture Indicated? No/not indicated 02/24/19 07:57 Blood Type A POSITIVE 02/26/19 12:39 Antibody Screen Negative 02/26/19 12:39 Crossmatch See Detail 02/26/19 12:39 - Plan (1) Abdominal pain Status: Acute Plan: AM LABS. CBC CMP BC, UA UC. CT ABD/PELVIS WITH CONTRAST ON ADMISSION, MANUSCRIPT EDITOR CONSULTED. IV ATBX THERAPY, IV HYDRATION (2) Perineal abscess Status: Acute Plan: SEE CULTURE FROM ER VISIT. IV LEVAQUIN, FLAGYL. DR AQUINO CONSULTING (3) Fever Status: Acute (4) Diabetes Status: Chronic (5) Anemia Status: Acute
--- NOTE | 2019-02-26 17:54 | PCM.PROG ---
Progress Note - Progress Note for Day of Date of Exam: 02/26/19 - Subjective Subjective: 33 WF ADMITTED ON 02/23 WITH FEVER, ABDOMINAL PAIN POST C SECTION, VANNA RECTAL ABSCESS, FAILED OUT PT TREATMENT. CURRENTLY ON IV LEVAQUIN, ZOSYN, AND FLAGYL STARTED PER DR AQUINO. PT HAD NOT REQUIRED I&D AT THIS TIME, ABSCESS "POPPED" WITH LARGE AMOUNT OF PURULENT DC ON PERINEAL PAD. PT ABDOMEN SOFT TODAY WITH MILD TENDERNESS, PT DENIES FEVER AND REPORTS GOOD BM. PT WBC 12.7, HGB 7.9. PLAN TO TRANSFUSE 1 UNIT PRBC AND IV IRON DEXTRAN INFUSION. POSSIBLE DC HOME TOMORROW IF PT CONTINUES TO IMPROVE. - Past Medical Family Social History Past Med/Fam/Surg Hx: No changes since H&P Allergies: Allergies No Known Drug Allergies Allergy (Verified 02/04/19 17:17) - Review of Systems ROS: No change since H&P - Vital Signs and I&O's Vital Signs: Temperature 99 F Pulse Rate [Left Brachial] 106 Pulse Rate [Radial] 100 Respiratory Rate 20 Blood Pressure [Left Arm] 108/65 Blood Pressure [Right Arm] 95/61 Blood Pressure 95/59 O2 Sat by Pulse Oximetry 98 Intake and Output: Intake & Output 02/24/19 02/25/19 02/26/19 02/27/19 11:59 11:59 11:59 11:59 Intake Total 740 / 740 2674 / 2674 2914 / 2914 480 / 480 Balance 740 / 740 2674 / 2674 2914 / 2914 480 / 480 - Physical Exam Oriented: Normal Eyes: Normal Ear: Normal Nose: Normal Throat: Normal Respiratory: Normal Cardiovascular: Normal : Normal Auscultation: Bowel Sounds: Normal Tenderness: Diffuse (.) Skin: Decreased Turgur, Tender, Hot, Other (rectal exam : improving perianal abscess with soft skin , mild tenderness ) Musculoskeletal: Normal Speech Pattern: Clear, Appropriate - Laboratory and Diagnostics Result Diagrams: 02/26/19 05:05 02/26/19 05:05 Labs: 02/25/19 17:30 Urine,Clean Catch Urine Culture - Preliminary 02/23/19 13:49 Blood Blood Culture - Preliminary 02/23/19 13:41 Blood Blood Culture - Preliminary Laboratory WBC 12.7 X10^3/uL (3.6-10.0) H 02/26/19 05:05 RBC 2.91 X10^6/uL (3.5-5.4) L 02/26/19 05:05 Hgb 7.9 g/dL (12.0-16.0) L 02/26/19 05:05 Hct 24.0 % (36.0-47.0) L 02/26/19 05:05 MCV 82.5 fL (80.0-100.0) 02/26/19 05:05 MCH 27.1 pg (27.0-34.0) 02/26/19 05:05 MCHC 32.8 g/dL (33.0-35.0) L 02/26/19 05:05 RDW 15.5 % (11.6-16.5) 02/26/19 05:05 Plt Count 476 X10^3/uL (150.0-450.0) H 02/26/19 05:05 Plt Count Comment Increased (ADEQUATE) A 02/26/19 05:05 MPV 7.6 fL (7.4-11.0) 02/26/19 05:05 Neut % (Auto) 79.1 % (42.0-75.0) H 02/26/19 05:05 Lymph % (Auto) 11.7 % (21.0-51.0) L 02/26/19 05:05 [place] % (Auto) 8.0 % (0.0-13.0) 02/26/19 05:05 Eos % (Auto) 0.5 % (0.9-2.9) L 02/26/19 05:05 Baso % (Auto) 0.7 % (0.2-1.0) 02/26/19 05:05 Neut # (Auto) 10.1 x10^3/uL (2.2-4.8) H 02/26/19 05:05 Lymph # (Auto) 1.5 X10^3/uL (1.3-2.9) 02/26/19 05:05 [place] # (Auto) 1.0 x10^3/uL (0.3-0.8) H 02/26/19 05:05 Eos # (Auto) 0.1 x10^3/uL (0.0-0.2) 02/26/19 05:05 Baso # (Auto) 0.1 X10^3/uL (0.0-0.1) 02/26/19 05:05 Absolute Nucleated RBC 0.1 /100WBC 02/26/19 05:05 Plt Morphology Comment Normal (NORMAL) 02/26/19 05:05 RBC Morphology Abnormal (NORMAL) A 02/26/19 05:05 Hypochromasia 1+ A 02/26/19 05:05 Sodium 137 mmol/L (136-145) 02/26/19 05:05 Corrected Sodium 141 mmol/L (136-145) 02/26/19 05:05 Potassium 3.7 mmol/L (3.5-5.1) 02/26/19 05:05 Chloride 101 mmol/L (98-107) 02/26/19 05:05 Carbon Dioxide 28.2 mmol/L (21-32) 02/26/19 05:05 BUN 4 mg/dL (7-18) L 02/26/19 05:05 Creatinine 0.56 mg/dL (0.55-1.02) 02/26/19 05:05 Est GFR (MDRD) Af Amer > 60 (>60) 02/26/19 05:05 Est GFR (MDRD) Non-Af > 60 (>60) 02/26/19 05:05 Glucose 267 mg/dL (65-99) H 02/26/19 05:05 POC Glucose (mg/dL) 272 mg/dL (65-99) H 02/26/19 16:23 Calcium 8.2 mg/dL (8.5-10.1) L 02/26/19 05:05 Corrected Calcium 10.0 mg/dL (8.5-10.1) 02/26/19 05:05 Magnesium 2.6 mg/dL (1.7-2.9) 02/25/19 05:27 Iron 38 ug/dL (50-175) L 02/26/19 05:05 Transferrin 132 mg/dL (202-364) L 02/26/19 05:05 Ferritin 213 ng/mL (8-252) 02/26/19 05:05 Total Bilirubin 0.30 mg/dL (0.2-1.0) 02/26/19 05:05 AST 9 Units/L (15-37) L 02/26/19 05:05 ALT 9 Units/L (12-78) L 02/26/19 05:05 Alkaline Phosphatase 214 Units/L (46-116) H 02/26/19 05:05 Total Protein 6.8 g/dL (6.4-8.2) 02/26/19 05:05 Albumin 1.8 g/dL (3.4-5.0) L 02/26/19 05:05 Globulin 5.0 g/dL (2.5-4.5) H 02/26/19 05:05 Albumin/Globulin Ratio 0.4 Ratio (1.1-2.1) L 02/26/19 05:05 Vitamin B12 918 pg/mL (193-986) 02/26/19 05:05 Folate 5.9 ng/mL (>8.6) L 02/26/19 05:05 Specimen Type Random urine 02/24/19 07:57 Urine Color Yellow (YELLOW) 02/24/19 07:57 Urine Appearance Hazy (CLEAR) 02/24/19 07:57 Urine pH 6.0 (5.0 - 8.0) 02/24/19 07:57 Ur Specific [place] 1.010 (1.000-1.030) 02/24/19 07:57 Urine Protein 2+ (NEGATIVE) 02/24/19 07:57 Urine Glucose (UA) 4+ (NEGATIVE) 02/24/19 07:57 Urine Ketones 3+ (NEGATIVE) 02/24/19 07:57 Urine Occult Blood 5+ (NEGATIVE) 02/24/19 07:57 Urine Nitrite Negative (NEGATIVE) 02/24/19 07:57 Urine Bilirubin Negative (NEGATIVE) 02/24/19 07:57 Urine Urobilinogen Normal (NORMAL) 02/24/19 07:57 Ur Leukocyte Esterase 3+ (NEGATIVE) 02/24/19 07:57 Urine RBC 10-20 /HPF (NONE SEEN) 02/24/19 07:57 Urine WBC Tntc /HPF (NONE SEEN) 02/24/19 07:57 Ur Squamous Epith Cells Moderate /HPF (NEGATIVE) 02/24/19 07:57 Urine Bacteria Trace /HPF (NEGATIVE) 02/24/19 07:57 Ur Culture Indicated? No/not indicated 02/24/19 07:57 Blood Type A POSITIVE 02/26/19 12:39 Antibody Screen Negative 02/26/19 12:39 Crossmatch See Detail 02/26/19 12:39 - Plan (1) Abdominal pain Status: Acute Plan: AM LABS. CBC CMP BC, UA UC. CT ABD/PELVIS WITH CONTRAST ON ADMISSION, STEEL UNLOADER CONSULTED. IV ATBX THERAPY, IV HYDRATION (2) Perineal abscess Status: Acute Plan: SEE CULTURE FROM ER VISIT. IV LEVAQUIN, FLAGYL. DR AQUINO CONSULTING (3) Fever Status: Acute (4) Diabetes Status: Chronic (5) Anemia Status: Acute Plan: TRANSFUSE, IRON INFUSION
[2019-02-26] MEDS: SNACK - Diabetic Appropriate PO SCH (21:30)
[2019-02-26] MEDS: MIRALAX POWDER (1 DOSE 17 G) PO SCH (21:30)
[2019-02-26] MEDS ORDERED: TYLENOL 325 MG TAB PO ONE ×2 (22:26→22:29)
[2019-02-26] MEDS ORDERED: NS 250 ML IV 250 ML ONE (23:00)
[2019-02-27] MEDS: COLACE CAP 100 MG PO SCH ×3 (00:46→15:47)
[2019-02-27 02:39] LABS: HEMATOCRIT 27.6 % (36.0-47.0)
[2019-02-27] MEDS: BACTROBAN CREAM TOP SCH ×3 (05:31→21:30)
[2019-02-27] MEDS: FLAGYL IV PREMIX 500 MG BAG 500 MG/100 ML BAG IV SCH ×3 (05:32→21:21)
[2019-02-27 06:26] LABS: BASOPHILS # (AUTO) 0.1 X10^3/uL (0.0-0.1); BASOPHILS % (AUTO) 0.6 % (0.2-1.0); EOSINOPHILS # (AUTO) 0.1 x10^3/uL (0.0-0.2); EOSINOPHILS % (AUTO) 0.3 % (0.9-2.9); HEMATOCRIT 27.6 % (36.0-47.0); LYMPHOCYTES % (AUTO) 12.3 % (21.0-51.0); MEAN CORPUSCULAR HEMOGLOBIN 27.1 pg (27.0-34.0); MEAN CORPUSCULAR HGB CONC 32.5 g/dL (33.0-35.0); MEAN CORPUSCULAR VOLUME 83.3 fL (80.0-100.0); MEAN PLATELET VOLUME 7.5 fL (7.4-11.0); MONOCYTES # (AUTO) 1.3 x10^3/uL (0.3-0.8); MONOCYTES % (AUTO) 7.9 % (0.0-13.0); NEUTROPHILS # (AUTO) 12.6 x10^3/uL (2.2-4.8); NEUTROPHILS % (AUTO) 78.9 % (42.0-75.0); PLATELET COUNT 467 X10^3/uL (150.0-450.0); RED BLOOD COUNT 3.31 X10^6/uL (3.5-5.4); RED CELL DISTRIBUTION WIDTH 16.3 % (11.6-16.5)
[2019-02-27 06:53] LABS: ALANINE AMINOTRANSFERASE 6 Units/L (12-78); ALBUMIN 1.7 g/dL (3.4-5.0); ALKALINE PHOSPHATASE 182 Units/L (46-116); BLOOD UREA NITROGEN 4 mg/dL (7-18); CARBON DIOXIDE 28.6 mmol/L (21-32); CHLORIDE 104 mmol/L (98-107); COR CA(FOR HYPOALB) 9.8 mg/dL (8.5-10.1); CREATININE 0.51 mg/dL (0.55-1.02); SODIUM 140 mmol/L (136-145); TOTAL PROTEIN 6.6 g/dL (6.4-8.2); eGFR NON BLACK RACES > 60 (>60)
[2019-02-27 06:54] LABS: ANISOCYTOSIS 1+; HYPOCHROMASIA SLIGHT; PLATELET MORPHOLOGY COMMENT NORMAL (NORMAL)
[2019-02-27 07:11] LABS: ASPARTATE AMINO TRANSFERASE 10 Units/L (15-37)
[2019-02-27] MEDS: LANTUS SC SCH (08:47)
[2019-02-27] MEDS: PEPCID 20 MG IV PREMIX* 20 MG/50 ML BAG IV SCH ×2 (08:49→21:22)
[2019-02-27] MEDS: LEVAQUIN PREMIX IV 750 MG 750 MG/150 ML BAG IV SCH (08:49)
[2019-02-27] MEDS: ZOLOFT PO SCH (08:49)
[2019-02-27] MEDS: MILK OF MAGNESIA PO SCH ×2 (08:49→21:23)
[2019-02-27] MEDS ORDERED: NS 100 ML IV 100 ML ONE (12:06)
[2019-02-27] MEDS: HumuLIN R SUBCUT PRN (12:28)
--- NOTE | 2019-02-27 12:29 | PCM.PROG ---
Progress Note - Progress Note for Day of Date of Exam: 02/27/19 - Subjective Subjective: 33 WF ADMITTED ON 02/23 WITH FEVER, ABDOMINAL PAIN POST C SECTION, VANNA RECTAL ABSCESS, FAILED OUT PT TREATMENT. CURRENTLY ON IV LEVAQUIN, ZOSYN, AND FLAGYL STARTED PER DR AQUINO. PT HAD NOT REQUIRED I&D AT THIS TIME, ABSCESS "POPPED" WITH LARGE AMOUNT OF PURULENT DC ON PERINEAL PAD, RELEASED PER DR AQUINO TO F/U IN HIS OFFICE AFTER D/C FOR ABSCESS. PT ABDOMEN MORE FIRM TODAY, LOCALIZED BELOW [place] WITH [place] SIZE AREA OF SWELLING WITH MODERATE TENDERNESS, PT DENIES FEVER AND REPORTS GOOD BM. PT WBC 16.0, HGB 9.0, POST TRANSFUSION PRBC AND IV IRON DEXTRAN INFUSION. PT CONTINUES ON IV ATBX, REPEAT CT ORDERED FOR THIS AM - Past Medical Family Social History Past Med/Fam/Surg Hx: No changes since H&P Allergies: Allergies No Known Drug Allergies Allergy (Verified 02/04/19 17:17) - Review of Systems ROS: No change since H&P - Vital Signs and I&O's Vital Signs: Temperature 99.4 F Pulse Rate [Left Brachial] 98 Pulse Rate [Radial] 100 Respiratory Rate 20 Blood Pressure [Left Arm] 110/63 Blood Pressure [Right Arm] 95/61 Blood Pressure 95/59 O2 Sat by Pulse Oximetry 98 Intake and Output: Intake & Output 02/25/19 02/26/19 02/27/19 02/28/19 11:59 11:59 11:59 11:59 Intake Total 2674 / 2674 2914 / 2914 1700 / 1700 Balance 2674 / 2674 2914 / 2914 1700 / 1700 - Physical Exam Oriented: Normal Eyes: Normal Ear: Normal Nose: Normal Throat: Normal Respiratory: Diminished Cardiovascular: Normal : Normal Auscultation: Bowel Sounds: Normal Palpation: Other (~5CM PALPABLE FIRM AREA BELOW UMBILICUS, WITH INCREASED WARMTH, NO EXTERNAL REDNESS) Tenderness: Diffuse (.) Skin: Decreased Turgur, Tender, Hot, Other (rectal exam : improving perianal abscess with soft skin , mild tenderness ) Musculoskeletal: Normal Psychiatric: Normal Mood Description: Calm Speech Pattern: Clear, Appropriate - Laboratory and Diagnostics Result Diagrams: 02/27/19 12:59 02/27/19 05:10 Labs: 02/25/19 17:30 Urine,Clean Catch Urine Culture - Final 02/23/19 13:49 Blood Blood Culture - Preliminary 02/23/19 13:41 Blood Blood Culture - Preliminary Laboratory WBC 16.0 X10^3/uL (3.6-10.0) H 02/27/19 05:10 RBC 3.31 X10^6/uL (3.5-5.4) L 02/27/19 05:10 Hgb 9.0 g/dL (12.0-16.0) L 02/27/19 05:10 Hct 27.6 % (36.0-47.0) L 02/27/19 05:10 MCV 83.3 fL (80.0-100.0) 02/27/19 05:10 MCH 27.1 pg (27.0-34.0) 02/27/19 05:10 MCHC 32.5 g/dL (33.0-35.0) L 02/27/19 05:10 RDW 16.3 % (11.6-16.5) 02/27/19 05:10 Plt Count 467 X10^3/uL (150.0-450.0) H 02/27/19 05:10 Plt Count Comment Increased (ADEQUATE) A 02/27/19 05:10 MPV 7.5 fL (7.4-11.0) 02/27/19 05:10 Neut % (Auto) 78.9 % (42.0-75.0) H 02/27/19 05:10 Lymph % (Auto) 12.3 % (21.0-51.0) L 02/27/19 05:10 [place] % (Auto) 7.9 % (0.0-13.0) 02/27/19 05:10 Eos % (Auto) 0.3 % (0.9-2.9) L 02/27/19 05:10 Baso % (Auto) 0.6 % (0.2-1.0) 02/27/19 05:10 Neut # (Auto) 12.6 x10^3/uL (2.2-4.8) H 02/27/19 05:10 Lymph # (Auto) 2.0 X10^3/uL (1.3-2.9) 02/27/19 05:10 [place] # (Auto) 1.3 x10^3/uL (0.3-0.8) H 02/27/19 05:10 Eos # (Auto) 0.1 x10^3/uL (0.0-0.2) 02/27/19 05:10 Baso # (Auto) 0.1 X10^3/uL (0.0-0.1) 02/27/19 05:10 Absolute Nucleated RBC 0.2 /100WBC 02/27/19 05:10 Plt Morphology Comment Normal (NORMAL) 02/27/19 05:10 RBC Morphology Abnormal (NORMAL) A 02/27/19 05:10 Hypochromasia Slight A 02/27/19 05:10 Anisocytosis 1+ A 02/27/19 05:10 Sodium 140 mmol/L (136-145) 02/27/19 05:10 Corrected Sodium TNP 02/27/19 05:10 Potassium 3.3 mmol/L (3.5-5.1) L 02/27/19 05:10 Chloride 104 mmol/L (98-107) 02/27/19 05:10 Carbon Dioxide 28.6 mmol/L (21-32) 02/27/19 05:10 BUN 4 mg/dL (7-18) L 02/27/19 05:10 Creatinine 0.51 mg/dL (0.55-1.02) L 02/27/19 05:10 Est GFR (MDRD) Af Amer > 60 (>60) 02/27/19 05:10 Est GFR (MDRD) Non-Af > 60 (>60) 02/27/19 05:10 Glucose 107 mg/dL (65-99) H 02/27/19 05:10 POC Glucose (mg/dL) 275 mg/dL (65-99) H 02/27/19 10:58 Calcium 8.0 mg/dL (8.5-10.1) L 02/27/19 05:10 Corrected Calcium 9.8 mg/dL (8.5-10.1) 02/27/19 05:10 Magnesium 2.6 mg/dL (1.7-2.9) 02/25/19 05:27 Iron 38 ug/dL (50-175) L 02/26/19 05:05 Transferrin 132 mg/dL (202-364) L 02/26/19 05:05 Ferritin 213 ng/mL (8-252) 02/26/19 05:05 Total Bilirubin 0.40 mg/dL (0.2-1.0) 02/27/19 05:10 AST 10 Units/L (15-37) L 02/27/19 05:10 ALT 6 Units/L (12-78) L 02/27/19 05:10 Alkaline Phosphatase 182 Units/L (46-116) H 02/27/19 05:10 Total Protein 6.6 g/dL (6.4-8.2) 02/27/19 05:10 Albumin 1.7 g/dL (3.4-5.0) L 02/27/19 05:10 Globulin 4.9 g/dL (2.5-4.5) H 02/27/19 05:10 Albumin/Globulin Ratio 0.3 Ratio (1.1-2.1) L 02/27/19 05:10 Vitamin B12 918 pg/mL (193-986) 02/26/19 05:05 Folate 5.9 ng/mL (>8.6) L 02/26/19 05:05 Specimen Type Random urine 02/24/19 07:57 Urine Color Yellow (YELLOW) 02/24/19 07:57 Urine Appearance Hazy (CLEAR) 02/24/19 07:57 Urine pH 6.0 (5.0 - 8.0) 02/24/19 07:57 Ur Specific [place] 1.010 (1.000-1.030) 02/24/19 07:57 Urine Protein 2+ (NEGATIVE) 02/24/19 07:57 Urine Glucose (UA) 4+ (NEGATIVE) 02/24/19 07:57 Urine Ketones 3+ (NEGATIVE) 02/24/19 07:57 Urine Occult Blood 5+ (NEGATIVE) 02/24/19 07:57 Urine Nitrite Negative (NEGATIVE) 02/24/19 07:57 Urine Bilirubin Negative (NEGATIVE) 02/24/19 07:57 Urine Urobilinogen Normal (NORMAL) 02/24/19 07:57 Ur Leukocyte Esterase 3+ (NEGATIVE) 02/24/19 07:57 Urine RBC 10-20 /HPF (NONE SEEN) 02/24/19 07:57 Urine WBC Tntc /HPF (NONE SEEN) 02/24/19 07:57 Ur Squamous Epith Cells Moderate /HPF (NEGATIVE) 02/24/19 07:57 Urine Bacteria Trace /HPF (NEGATIVE) 02/24/19 07:57 Ur Culture Indicated? No/not indicated 02/24/19 07:57 Blood Type A POSITIVE 02/26/19 12:39 Antibody Screen Negative 02/26/19 12:39 Crossmatch See Detail 02/26/19 12:39 - Plan (1) Abdominal pain Status: Acute Plan: AM LABS. CBC CMP BC, UA UC. REPEAT CT ABD PELVIS WITH CONTRAST THIS AM, NPO FOR PROCEDURE. IV ATBX THERAPY, IV HYDRATION (2) Perineal abscess Status: Acute Plan: RESOLVING, CONTINUE TENDER (3) Fever Status: Acute (4) Diabetes Status: Chronic (5) Anemia Status: Acute Plan: TRANSFUSE, IRON INFUSION
--- NOTE | 2019-02-27 13:04 | CT ---
CT OF THE ABDOMEN AND PELVIS WITH CONTRAST HISTORY: Abdominal abscess status post severe endometritis and uterine rupture. Comparison: 02/23/2019 Technique: Multiple axial images of the abdomen and pelvis were obtained from the lung bases to the pubic symphysis follow the administration of IV contrast as well as oral contrast. Dose reduction techniques including Automated Exposure Control (AEC) and adjustment of mA and kV were utlized. Findings: The heart is normal in size. There is no pericardial effusion. Lung bases are clear without focal consolidation, pleural effusion or pneumothorax. Liver and spleen are normal in size, enhancement characteristics and contour. No focal lesions. The portal vein is patent. No ductal dilitation. Gallbladder is present. No calcified gallstones or gallbladder wall thickening. The pancreas is unremarkable. Adrenal glands are normal. Kidneys enhance symmetrically without hydronephrosis or nephrolithiasis. No bowel obstruction or inflammation. No abnormal appearing mesenteric or retroperitoneal lymph nodes. No free fluid or fluid collections. The bladder is normal in appearance. Redemonstrated is evidence of a large defect in the anterior wall of the uterus with decompression of complex heterogeneous uterine contents into the pelvis which have coalesced to form a large abscess that invades the anterior abdominal wall. Additionally there are now signs of further abscess decompression into the subcutaneous soft tissues of the anterior abdominal wall. This can be seen for example on series 7, image 39 and series 4, image 54. Overall the abscess collection appears to measure approximately 11.5 x 10.4 by 7.2 cm, previously 11.0 x 9.1 x 5.7 cm. There is extensive inflammation surrounding the uterus as well. Additionally there continues to be air and heterogeneous debris within the uterus and adjacent fluid collections.. No aggressive osseous lesions. IMPRESSION: 1. Findings of severe worsening infection/abscess involving the pelvis and anterior abdominal wall as detailed above. Again this appears to be secondary to a rupture of the anterior uterine wall and continued decompression of infected material into the pelvis. Additionally there appears to be the suggestion of impending decompression into the subcutaneous soft tissues and likely through the skin which could create a complicated utero cutaneous fistula. Strongly recommend surgical consultation. Reported By:
[2019-02-27 13:06] LABS: BASOPHILS # (AUTO) 0.2 X10^3/uL (0.0-0.1); BASOPHILS % (AUTO) 0.9 % (0.2-1.0); EOSINOPHILS % (AUTO) 0.2 % (0.9-2.9); HEMATOCRIT 28.2 % (36.0-47.0); HEMOGLOBIN 9.1 g/dL (12.0-16.0); LYMPHOCYTES # (AUTO) 1.5 X10^3/uL (1.3-2.9); LYMPHOCYTES % (AUTO) 7.7 % (21.0-51.0); MEAN CORPUSCULAR HEMOGLOBIN 26.9 pg (27.0-34.0); MEAN CORPUSCULAR HGB CONC 32.3 g/dL (33.0-35.0); MEAN CORPUSCULAR VOLUME 83.1 fL (80.0-100.0); MEAN PLATELET VOLUME 7.2 fL (7.4-11.0); MONOCYTES # (AUTO) 1.2 x10^3/uL (0.3-0.8); MONOCYTES % (AUTO) 6.2 % (0.0-13.0); NEUTROPHILS # (AUTO) 16.8 x10^3/uL (2.2-4.8); PLATELET COUNT 485 X10^3/uL (150.0-450.0); RED BLOOD COUNT 3.39 X10^6/uL (3.5-5.4); WHITE BLOOD COUNT 19.8 X10^3/uL (3.6-10.0)
[2019-02-27] MEDS: ZOSYN VIAL 4.5 GRAMS 4.5 G in NS 100 ML IV + SPIKE MINIBAG* 100 ML IV SCH ×2 (14:05→21:22)
--- NOTE | 2019-02-27 15:51 | RAD ---
HISTORY: Dyspnea on exertion Study: Two-view chest Comparison: One-view chest 05/12/2016. Technique: PA and lateral chest Findings: Soft tissues and bony thorax are normal. The heart size configuration airway and vascularity are normal. The lungs are clear without infiltrates effusions or adenopathy. IMPRESSION: 1. No acute cardiopulmonary abnormalities. No significant interval change from the portable chest 05/12/2016. Reported By:
[2019-02-27] MEDS: ULTRAM PO PRN (18:10)
[2019-02-27] MEDS: HEMOCYTE-PLUS PO SCH (18:19)
[2019-02-27] MEDS: SNACK - Diabetic Appropriate PO SCH (21:23)
[2019-02-27] MEDS: MIRALAX POWDER (1 DOSE 17 G) PO SCH (21:23)
[2019-02-27] MEDS: KLOR-CON PO PRN (21:25)
[2019-02-27] MEDS: MORPHINE SULFATE INJ 2 MG INJ IVP PRN (21:30)
[2019-02-27] MEDS: K-DUR TAB 20 MEQ PO PRN (22:01)
[2019-02-28] MEDS: FLAGYL IV PREMIX 500 MG BAG 500 MG/100 ML BAG IV SCH ×3 (05:05→21:02)
[2019-02-28] MEDS: ZOSYN VIAL 4.5 GRAMS 4.5 G in NS 100 ML IV + SPIKE MINIBAG* 100 ML IV SCH ×4 (05:05→21:04)
[2019-02-28] MEDS: COLACE CAP 100 MG PO SCH ×2 (05:06→11:35)
[2019-02-28] MEDS: BACTROBAN CREAM TOP SCH ×3 (05:32→21:04)
[2019-02-28 06:19] LABS: BASOPHILS % (AUTO) 0.2 % (0.2-1.0); EOSINOPHILS # (AUTO) 0.1 x10^3/uL (0.0-0.2); EOSINOPHILS % (AUTO) 0.3 % (0.9-2.9); HEMATOCRIT 27.7 % (36.0-47.0); HEMOGLOBIN 8.9 g/dL (12.0-16.0); LYMPHOCYTES % (AUTO) 10.3 % (21.0-51.0); MEAN CORPUSCULAR HGB CONC 32.1 g/dL (33.0-35.0); MEAN CORPUSCULAR VOLUME 84.2 fL (80.0-100.0); MEAN PLATELET VOLUME 7.8 fL (7.4-11.0); MONOCYTES # (AUTO) 1.4 x10^3/uL (0.3-0.8); MONOCYTES % (AUTO) 7.1 % (0.0-13.0); NEUTROPHILS # (AUTO) 16.1 x10^3/uL (2.2-4.8); NEUTROPHILS % (AUTO) 82.1 % (42.0-75.0); PLATELET COUNT 495 X10^3/uL (150.0-450.0); RED BLOOD COUNT 3.29 X10^6/uL (3.5-5.4); RED CELL DISTRIBUTION WIDTH 16.5 % (11.6-16.5); WHITE BLOOD COUNT 19.7 X10^3/uL (3.6-10.0)
[2019-02-28 06:30] LABS: ALANINE AMINOTRANSFERASE 6 Units/L (12-78); ALBUMIN 1.6 g/dL (3.4-5.0); ALKALINE PHOSPHATASE 165 Units/L (46-116); ASPARTATE AMINO TRANSFERASE 8 Units/L (15-37); BLOOD UREA NITROGEN 1 mg/dL (7-18); CALCIUM 8.2 mg/dL (8.5-10.1); CARBON DIOXIDE 29.3 mmol/L (21-32); CHLORIDE 106 mmol/L (98-107); COR CA(FOR HYPOALB) 10.1 mg/dL (8.5-10.1); COR NA(FOR HYPERGLY) 141 mmol/L (136-145); CREATININE 0.53 mg/dL (0.55-1.02); MAGNESIUM 1.7 mg/dL (1.7-2.9); SODIUM 141 mmol/L (136-145); TOTAL PROTEIN 6.5 g/dL (6.4-8.2); eGFR NON BLACK RACES > 60 (>60)
[2019-02-28 07:05] LABS: ANISOCYTOSIS SLIGHT; HYPOCHROMASIA 1+; PLATELET MORPHOLOGY COMMENT NORMAL (NORMAL)
[2019-02-28] MEDS: NS 500 ML IV 500 ML IV SCH ×3 (07:06→20:55)
[2019-02-28] MEDS: LEVAQUIN PREMIX IV 750 MG 750 MG/150 ML BAG IV SCH (08:28)
[2019-02-28] MEDS: PEPCID 20 MG IV PREMIX* 20 MG/50 ML BAG IV SCH ×2 (08:28→20:55)
[2019-02-28] MEDS ORDERED: FENTANYL INJ 100 mcg ONE (09:47)
[2019-02-28] MEDS: HEMOCYTE-PLUS PO SCH (09:59)
[2019-02-28] MEDS: LANTUS SC SCH (09:59)
[2019-02-28] MEDS: MILK OF MAGNESIA PO SCH ×2 (10:00→20:54)
[2019-02-28] MEDS: ZOLOFT PO SCH (10:00)
[2019-02-28] MEDS ORDERED: XYLOCAINE 1 % (PLAIN) ONE (10:19)
[2019-02-28] MEDS ORDERED: BACITRACIN VIAL ONE (10:24)
[2019-02-28] MEDS ORDERED: VANCOMYCIN HCL 1 GM VIAL ONE (10:28)
[2019-02-28] MEDS ORDERED: NS IRRIGATION 1000 ML 1,000 ML with BACITRACIN VIAL 50,000 UNIT IR ONE ×2 (10:30)
[2019-02-28] MEDS: ULTRAM PO PRN ×2 (12:59→21:01)
[2019-02-28] MEDS: MORPHINE SULFATE INJ 2 MG INJ IVP PRN ×2 (13:44→21:11)
[2019-02-28] MEDS ORDERED: DIPRIVAN VIAL ONE (15:25)
[2019-02-28] MEDS ORDERED: VERSED ONE (15:25)
--- NOTE | 2019-02-28 17:49 | PCM.PROG ---
Progress Note - Progress Note for Day of Date of Exam: 02/28/19 - Subjective Subjective: 33 WF ADMITTED ON 02/23 WITH FEVER, ABDOMINAL PAIN POST C SECTION, VANNA RECTAL ABSCESS, FAILED OUT PT TREATMENT. CURRENTLY ON IV LEVAQUIN, ZOSYN, AND FLAGYL. PERIRECTAL ABSCESS RESOLVED. HGB 8.9 THIS AM POST TRANSFUSION PRBC AND IV IRON DEXTRAN INFUSION. PT CONTINUES ON IV ATBX, WITH REPEAT CT ON 02/27 WITH WORSENING ABSCESS. PT HELP NPO WITH DR AQUINO CONSULTED FOR SURGICAL INTERVENTION, WBC 19.7 THIS AM, PT IS AFEBRILE - Past Medical Family Social History Past Med/Fam/Surg Hx: No changes since H&P Allergies: Allergies No Known Drug Allergies Allergy (Verified 02/04/19 17:17) - Review of Systems ROS: No change since H&P - Vital Signs and I&O's Vital Signs: Temperature 98.7 F Pulse Rate [Left Brachial] 88 Pulse Rate [Radial] 100 Respiratory Rate 18 Blood Pressure [Left Arm] 101/68 Blood Pressure [Right Arm] 95/61 Blood Pressure 95/59 O2 Sat by Pulse Oximetry 99 Intake and Output: Intake & Output 02/26/19 02/27/19 02/28/19 03/01/19 11:59 11:59 11:59 11:59 Intake Total 2914 / 2914 1700 / 1700 2240 / 2240 240 / 240 Output Total 300 / 300 Balance 2914 / 2914 1700 / 1700 1940 / 1940 240 / 240 - Physical Exam Oriented: Normal Eyes: Normal Ear: Normal Nose: Normal Throat: Normal Respiratory: Diminished Cardiovascular: Normal : Normal Auscultation: Bowel Sounds: Normal Tenderness: Diffuse (.) Skin: Decreased Turgur, Tender, Hot, Other (rectal exam : improving perianal abscess with soft skin , mild tenderness ) Musculoskeletal: Normal Psychiatric: Normal Mood Description: Calm Speech Pattern: Clear, Appropriate - Laboratory and Diagnostics Result Diagrams: 02/28/19 05:33 02/28/19 05:33 Labs: 02/23/19 13:49 Blood Blood Culture - Final 02/23/19 13:41 Blood Blood Culture - Final 02/28/19 10:26 Aspirate Gram Stain - Final 02/25/19 17:30 Urine,Clean Catch Urine Culture - Final Laboratory WBC 19.7 X10^3/uL (3.6-10.0) H 02/28/19 05:33 RBC 3.29 X10^6/uL (3.5-5.4) L 02/28/19 05:33 Hgb 8.9 g/dL (12.0-16.0) L 02/28/19 05:33 Hct 27.7 % (36.0-47.0) L 02/28/19 05:33 MCV 84.2 fL (80.0-100.0) 02/28/19 05:33 MCH 27.0 pg (27.0-34.0) 02/28/19 05:33 MCHC 32.1 g/dL (33.0-35.0) L 02/28/19 05:33 RDW 16.5 % (11.6-16.5) 02/28/19 05:33 Plt Count 495 X10^3/uL (150.0-450.0) H 02/28/19 05:33 Plt Count Comment Increased (ADEQUATE) A 02/28/19 05:33 MPV 7.8 fL (7.4-11.0) 02/28/19 05:33 Neut % (Auto) 82.1 % (42.0-75.0) H 02/28/19 05:33 Lymph % (Auto) 10.3 % (21.0-51.0) L 02/28/19 05:33 [place] % (Auto) 7.1 % (0.0-13.0) 02/28/19 05:33 Eos % (Auto) 0.3 % (0.9-2.9) L 02/28/19 05:33 Baso % (Auto) 0.2 % (0.2-1.0) 02/28/19 05:33 Neut # (Auto) 16.1 x10^3/uL (2.2-4.8) H 02/28/19 05:33 Lymph # (Auto) 2.0 X10^3/uL (1.3-2.9) 02/28/19 05:33 [place] # (Auto) 1.4 x10^3/uL (0.3-0.8) H 02/28/19 05:33 Eos # (Auto) 0.1 x10^3/uL (0.0-0.2) 02/28/19 05:33 Baso # (Auto) 0.0 X10^3/uL (0.0-0.1) 02/28/19 05:33 Absolute Nucleated RBC 0.0 /100WBC 02/28/19 05:33 Plt Morphology Comment Normal (NORMAL) 02/28/19 05:33 RBC Morphology Abnormal (NORMAL) A 02/28/19 05:33 Hypochromasia 1+ A 02/28/19 05:33 Anisocytosis Slight A 02/28/19 05:33 Sodium 141 mmol/L (136-145) 02/28/19 05:33 Corrected Sodium 141 mmol/L (136-145) 02/28/19 05:33 Potassium 3.6 mmol/L (3.5-5.1) 02/28/19 05:33 Chloride 106 mmol/L (98-107) 02/28/19 05:33 Carbon Dioxide 29.3 mmol/L (21-32) 02/28/19 05:33 BUN 1 mg/dL (7-18) L 02/28/19 05:33 Creatinine 0.53 mg/dL (0.55-1.02) L 02/28/19 05:33 Est GFR (MDRD) Af Amer > 60 (>60) 02/28/19 05:33 Est GFR (MDRD) Non-Af > 60 (>60) 02/28/19 05:33 Glucose 119 mg/dL (65-99) H 02/28/19 05:33 POC Glucose (mg/dL) 157 mg/dL (65-99) H 02/28/19 11:01 Calcium 8.2 mg/dL (8.5-10.1) L 02/28/19 05:33 Corrected Calcium 10.1 mg/dL (8.5-10.1) 02/28/19 05:33 Magnesium 1.7 mg/dL (1.7-2.9) 02/28/19 05:33 Iron 38 ug/dL (50-175) L 02/26/19 05:05 Transferrin 132 mg/dL (202-364) L 02/26/19 05:05 Ferritin 213 ng/mL (8-252) 02/26/19 05:05 Total Bilirubin 0.30 mg/dL (0.2-1.0) 02/28/19 05:33 AST 8 Units/L (15-37) L 02/28/19 05:33 ALT 6 Units/L (12-78) L 02/28/19 05:33 Alkaline Phosphatase 165 Units/L (46-116) H 02/28/19 05:33 Total Protein 6.5 g/dL (6.4-8.2) 02/28/19 05:33 Albumin 1.6 g/dL (3.4-5.0) L 02/28/19 05:33 Globulin 4.9 g/dL (2.5-4.5) H 02/28/19 05:33 Albumin/Globulin Ratio 0.3 Ratio (1.1-2.1) L 02/28/19 05:33 Vitamin B12 918 pg/mL (193-986) 02/26/19 05:05 Folate 5.9 ng/mL (>8.6) L 02/26/19 05:05 Specimen Type Random urine 02/24/19 07:57 Urine Color Yellow (YELLOW) 02/24/19 07:57 Urine Appearance Hazy (CLEAR) 02/24/19 07:57 Urine pH 6.0 (5.0 - 8.0) 02/24/19 07:57 Ur Specific [place] 1.010 (1.000-1.030) 02/24/19 07:57 Urine Protein 2+ (NEGATIVE) 02/24/19 07:57 Urine Glucose (UA) 4+ (NEGATIVE) 02/24/19 07:57 Urine Ketones 3+ (NEGATIVE) 02/24/19 07:57 Urine Occult Blood 5+ (NEGATIVE) 02/24/19 07:57 Urine Nitrite Negative (NEGATIVE) 02/24/19 07:57 Urine Bilirubin Negative (NEGATIVE) 02/24/19 07:57 Urine Urobilinogen Normal (NORMAL) 02/24/19 07:57 Ur Leukocyte Esterase 3+ (NEGATIVE) 02/24/19 07:57 Urine RBC 10-20 /HPF (NONE SEEN) 02/24/19 07:57 Urine WBC Tntc /HPF (NONE SEEN) 02/24/19 07:57 Ur Squamous Epith Cells Moderate /HPF (NEGATIVE) 02/24/19 07:57 Urine Bacteria Trace /HPF (NEGATIVE) 02/24/19 07:57 Ur Culture Indicated? No/not indicated 02/24/19 07:57 Blood Type A POSITIVE 02/26/19 12:39 Antibody Screen Negative 02/26/19 12:39 Crossmatch See Detail 02/26/19 12:39 - Plan (1) Abdominal wall abscess at site of surgical wound Status: Acute Plan: IV ATBX, NPO FOR SURGERY. DR AQUINO CONSULTING. AM LABS (2) Abdominal pain Status: Acute Plan: AM LABS. CBC CMP BC, UA UC. NPO FOR PROCEDURE. IV ATBX THERAPY, IV HYDRATION (3) Fever Status: Acute (4) Diabetes Status: Chronic (5) Anemia Status: Acute Plan: S/P TRANSFUSE RBC, IRON INFUSION
[2019-02-28] MEDS: VANCOMYCIN HCL 1 GM VIAL 1 G in D5W 250 ML IV 250 ML IV SCH (20:53)
[2019-02-28] MEDS: SNACK - Diabetic Appropriate PO SCH (20:53)
[2019-02-28] MEDS: MIRALAX POWDER (1 DOSE 17 G) PO SCH (21:02)
[2019-02-28] MEDS: HumuLIN R SUBCUT PRN (21:10)
[2019-03-01] MEDS: COLACE CAP 100 MG PO SCH ×2 (05:10→11:46)
[2019-03-01] MEDS: FLAGYL IV PREMIX 500 MG BAG 500 MG/100 ML BAG IV SCH ×3 (05:10→21:02)
[2019-03-01] MEDS: VANCOMYCIN HCL 1 GM VIAL 1 G in D5W 250 ML IV 250 ML IV SCH ×3 (05:11→22:45)
[2019-03-01] MEDS: ZOSYN VIAL 4.5 GRAMS 4.5 G in NS 100 ML IV + SPIKE MINIBAG* 100 ML IV SCH ×3 (05:11→21:14)
[2019-03-01] MEDS: BACTROBAN CREAM TOP SCH ×3 (05:11→22:46)
[2019-03-01] MEDS: MORPHINE SULFATE INJ 2 MG INJ IVP PRN ×3 (05:48→21:15)
[2019-03-01 06:01] LABS: BASOPHILS % (AUTO) 0.3 % (0.2-1.0); EOSINOPHILS # (AUTO) 0.1 x10^3/uL (0.0-0.2); EOSINOPHILS % (AUTO) 0.7 % (0.9-2.9); HEMATOCRIT 27.2 % (36.0-47.0); HEMOGLOBIN 8.7 g/dL (12.0-16.0); LYMPHOCYTES # (AUTO) 1.9 X10^3/uL (1.3-2.9); LYMPHOCYTES % (AUTO) 12.7 % (21.0-51.0); MEAN CORPUSCULAR HEMOGLOBIN 27.2 pg (27.0-34.0); MEAN CORPUSCULAR VOLUME 84.8 fL (80.0-100.0); MEAN PLATELET VOLUME 7.7 fL (7.4-11.0); MONOCYTES # (AUTO) 1.1 x10^3/uL (0.3-0.8); MONOCYTES % (AUTO) 7.5 % (0.0-13.0); NEUTROPHILS # (AUTO) 11.9 x10^3/uL (2.2-4.8); NEUTROPHILS % (AUTO) 78.8 % (42.0-75.0); PLATELET COUNT 412 X10^3/uL (150.0-450.0); RED BLOOD COUNT 3.21 X10^6/uL (3.5-5.4); RED CELL DISTRIBUTION WIDTH 16.3 % (11.6-16.5); WHITE BLOOD COUNT 15.1 X10^3/uL (3.6-10.0)
[2019-03-01 06:18] LABS: ALANINE AMINOTRANSFERASE < 6 Units/L (12-78); ALBUMIN 1.6 g/dL (3.4-5.0); ALKALINE PHOSPHATASE 142 Units/L (46-116); ASPARTATE AMINO TRANSFERASE 7 Units/L (15-37); BLOOD UREA NITROGEN 2 mg/dL (7-18); CALCIUM 8.1 mg/dL (8.5-10.1); CARBON DIOXIDE 28.8 mmol/L (21-32); CHLORIDE 106 mmol/L (98-107); COR NA(FOR HYPERGLY) 143 mmol/L (136-145); CREATININE 0.58 mg/dL (0.55-1.02); SODIUM 141 mmol/L (136-145); TOTAL PROTEIN 6.3 g/dL (6.4-8.2); eGFR NON BLACK RACES > 60 (>60)
[2019-03-01] MEDS: K-DUR TAB 20 MEQ PO PRN (06:46)
[2019-03-01] MEDS: PEPCID 20 MG IV PREMIX* 20 MG/50 ML BAG IV SCH ×2 (08:43→21:14)
[2019-03-01] MEDS: ZOLOFT PO SCH (08:43)
[2019-03-01] MEDS: HEMOCYTE-PLUS PO SCH (08:43)
[2019-03-01] MEDS: LANTUS SC SCH (08:43)
[2019-03-01] MEDS: MILK OF MAGNESIA PO SCH ×2 (08:45→20:59)
[2019-03-01] MEDS: ULTRAM PO PRN ×2 (08:49→21:54)
--- NOTE | 2019-03-01 10:23 | DR.PROGNOT ---
Hospital Progress Notes - Progress Note for Day of: Progress Note Date: 03/01/19 - Chief Complaint Chief Complaint: minimal drainage from the abscess site . pain is less , no nausea , no fever . BS 165, K 3.3 . WBC 15.1 - Past Medical Family Social History Past Med/Fam/Surg Hx: No changes since H&P Allergies: Allergies No Known Drug Allergies Allergy (Verified 02/04/19 17:17) - Review Of Systems ROS: No change since H&P - Vital Signs Vital Signs: Temperature 98.4 F Pulse Rate [Left Brachial] 78 Pulse Rate [Radial] 100 Respiratory Rate 18 Blood Pressure [Left Arm] 112/58 Blood Pressure [Right Arm] 95/61 Blood Pressure 95/59 O2 Sat by Pulse Oximetry 98 - Physical Exam Oriented: Normal Eyes: Normal Ear: Normal Nose: Normal Throat: Normal Respiratory: Diminished Cardiovascular: Normal : Normal GI:Auscultation: Normal GI:Palpation: Other (~5CM PALPABLE FIRM AREA BELOW UMBILICUS, WITH INCREASED W ARMTH, NO EXTERNAL REDNESS) GI: Tenderness: Other (mild lower abdominal tenderness around the incision . BS +) Skin: Decreased Turgur, Tender, Hot, Other (rectal exam : improving perianal abscess with soft skin , mild tenderness ) Musculoskeletal: Normal Psychiatric: Normal Mood Description: Calm Speech Pattern: Clear, Appropriate - Laboratory and Diagnostics Result Diagrams: 03/01/19 05:18 03/01/19 05:18 Labs: 02/28/19 10:26 Aspirate Gram Stain - Final 02/28/19 10:26 Aspirate Wound Culture - Preliminary 02/23/19 13:49 Blood Blood Culture - Final 02/23/19 13:41 Blood Blood Culture - Final 02/25/19 17:30 Urine,Clean Catch Urine Culture - Final Laboratory WBC 15.1 X10^3/uL (3.6-10.0) H 03/01/19 05:18 RBC 3.21 X10^6/uL (3.5-5.4) L 03/01/19 05:18 Hgb 8.7 g/dL (12.0-16.0) L 03/01/19 05:18 Hct 27.2 % (36.0-47.0) L 03/01/19 05:18 MCV 84.8 fL (80.0-100.0) 03/01/19 05:18 MCH 27.2 pg (27.0-34.0) 03/01/19 05:18 MCHC 32.0 g/dL (33.0-35.0) L 03/01/19 05:18 RDW 16.3 % (11.6-16.5) 03/01/19 05:18 Plt Count 412 X10^3/uL (150.0-450.0) 03/01/19 05:18 Plt Count Comment Increased (ADEQUATE) A 02/28/19 05:33 MPV 7.7 fL (7.4-11.0) 03/01/19 05:18 Neut % (Auto) 78.8 % (42.0-75.0) H 03/01/19 05:18 Lymph % (Auto) 12.7 % (21.0-51.0) L 03/01/19 05:18 [place] % (Auto) 7.5 % (0.0-13.0) 03/01/19 05:18 Eos % (Auto) 0.7 % (0.9-2.9) L 03/01/19 05:18 Baso % (Auto) 0.3 % (0.2-1.0) 03/01/19 05:18 Neut # (Auto) 11.9 x10^3/uL (2.2-4.8) H 03/01/19 05:18 Lymph # (Auto) 1.9 X10^3/uL (1.3-2.9) 03/01/19 05:18 [place] # (Auto) 1.1 x10^3/uL (0.3-0.8) H 03/01/19 05:18 Eos # (Auto) 0.1 x10^3/uL (0.0-0.2) 03/01/19 05:18 Baso # (Auto) 0.0 X10^3/uL (0.0-0.1) 03/01/19 05:18 Absolute Nucleated RBC 0.0 /100WBC 03/01/19 05:18 Plt Morphology Comment Normal (NORMAL) 02/28/19 05:33 RBC Morphology Abnormal (NORMAL) A 02/28/19 05:33 Hypochromasia 1+ A 02/28/19 05:33 Anisocytosis Slight A 02/28/19 05:33 Sodium 141 mmol/L (136-145) 03/01/19 05:18 Corrected Sodium 143 mmol/L (136-145) 03/01/19 05:18 Potassium 3.3 mmol/L (3.5-5.1) L 03/01/19 05:18 Chloride 106 mmol/L (98-107) 03/01/19 05:18 Carbon Dioxide 28.8 mmol/L (21-32) 03/01/19 05:18 BUN 2 mg/dL (7-18) L 03/01/19 05:18 Creatinine 0.58 mg/dL (0.55-1.02) 03/01/19 05:18 Est GFR (MDRD) Af Amer > 60 (>60) 03/01/19 05:18 Est GFR (MDRD) Non-Af > 60 (>60) 03/01/19 05:18 Glucose 165 mg/dL (65-99) H 03/01/19 05:18 POC Glucose (mg/dL) 141 mg/dL (65-99) H 03/01/19 05:34 Calcium 8.1 mg/dL (8.5-10.1) L 03/01/19 05:18 Corrected Calcium 10.0 mg/dL (8.5-10.1) 03/01/19 05:18 Magnesium 1.7 mg/dL (1.7-2.9) 02/28/19 05:33 Iron 38 ug/dL (50-175) L 02/26/19 05:05 Transferrin 132 mg/dL (202-364) L 02/26/19 05:05 Ferritin 213 ng/mL (8-252) 02/26/19 05:05 Total Bilirubin 0.30 mg/dL (0.2-1.0) 03/01/19 05:18 AST 7 Units/L (15-37) L 03/01/19 05:18 ALT < 6 Units/L (12-78) L 03/01/19 05:18 Alkaline Phosphatase 142 Units/L (46-116) H 03/01/19 05:18 Total Protein 6.3 g/dL (6.4-8.2) L 03/01/19 05:18 Albumin 1.6 g/dL (3.4-5.0) L 03/01/19 05:18 Globulin 4.7 g/dL (2.5-4.5) H 03/01/19 05:18 Albumin/Globulin Ratio 0.3 Ratio (1.1-2.1) L 03/01/19 05:18 Vitamin B12 918 pg/mL (193-986) 02/26/19 05:05 Folate 5.9 ng/mL (>8.6) L 02/26/19 05:05 Specimen Type Random urine 02/24/19 07:57 Urine Color Yellow (YELLOW) 02/24/19 07:57 Urine Appearance Hazy (CLEAR) 02/24/19 07:57 Urine pH 6.0 (5.0 - 8.0) 02/24/19 07:57 Ur Specific [place] 1.010 (1.000-1.030) 02/24/19 07:57 Urine Protein 2+ (NEGATIVE) 02/24/19 07:57 Urine Glucose (UA) 4+ (NEGATIVE) 02/24/19 07:57 Urine Ketones 3+ (NEGATIVE) 02/24/19 07:57 Urine Occult Blood 5+ (NEGATIVE) 02/24/19 07:57 Urine Nitrite Negative (NEGATIVE) 02/24/19 07:57 Urine Bilirubin Negative (NEGATIVE) 02/24/19 07:57 Urine Urobilinogen Normal (NORMAL) 02/24/19 07:57 Ur Leukocyte Esterase 3+ (NEGATIVE) 02/24/19 07:57 Urine RBC 10-20 /HPF (NONE SEEN) 02/24/19 07:57 Urine WBC Tntc /HPF (NONE SEEN) 02/24/19 07:57 Ur Squamous Epith Cells Moderate /HPF (NEGATIVE) 02/24/19 07:57 Urine Bacteria Trace /HPF (NEGATIVE) 02/24/19 07:57 Ur Culture Indicated? No/not indicated 02/24/19 07:57 Blood Type A POSITIVE 02/26/19 12:39 Antibody Screen Negative 02/26/19 12:39 Crossmatch See Detail 02/26/19 12:39 - Assessment and Plan 1: SSI with abscess abdominal wall . s/p I&D with packing . same IV ATB , local care and diabetic control . - Problem Patient Problems: Patient Problems Abdominal pain (Acute) R10.9 Perineal abscess (Acute) L02.215 Fever (Acute) R50.9 Anemia (Acute) D64.9 Abdominal wall abscess at site of surgical wound (Acute) T81.49XA
[2019-03-01] MEDS: HumuLIN R SUBCUT PRN ×2 (11:46→22:00)
[2019-03-01] MEDS ORDERED: PHARMACY COMMENT IV NR (13:30)
[2019-03-01] MEDS ORDERED: DIFLUCAN 200 MG IV PREMIX* 200 MG/100 ML BAG IV SCH (15:00)
[2019-03-01] MEDS: DIFLUCAN PO SCH (16:03)
[2019-03-01] MEDS: NS 500 ML IV 500 ML IV SCH (16:03)
[2019-03-01] MEDS: MIRALAX POWDER (1 DOSE 17 G) PO SCH (20:59)
[2019-03-01] MEDS: SNACK - Diabetic Appropriate PO SCH (21:00)
[2019-03-01 21:23] LABS: CREATININE 0.81 mg/dL (0.55-1.02); VANCOMYCIN,TROUGH 10.3 ug/mL (15-20)
[2019-03-02] MEDS: COLACE CAP 100 MG PO SCH ×2 (00:31→21:02)
[2019-03-02] MEDS ORDERED: MILK OF MAGNESIA PO PRN (01:22)
[2019-03-02 05:47] LABS: BASOPHILS # (AUTO) 0.1 X10^3/uL (0.0-0.1); BASOPHILS % (AUTO) 0.5 % (0.2-1.0); EOSINOPHILS # (AUTO) 0.3 x10^3/uL (0.0-0.2); EOSINOPHILS % (AUTO) 2.1 % (0.9-2.9); HEMATOCRIT 27.7 % (36.0-47.0); LYMPHOCYTES # (AUTO) 2.2 X10^3/uL (1.3-2.9); LYMPHOCYTES % (AUTO) 17.6 % (21.0-51.0); MEAN CORPUSCULAR HEMOGLOBIN 27.2 pg (27.0-34.0); MEAN CORPUSCULAR HGB CONC 32.3 g/dL (33.0-35.0); MEAN PLATELET VOLUME 7.2 fL (7.4-11.0); MONOCYTES # (AUTO) 0.9 x10^3/uL (0.3-0.8); MONOCYTES % (AUTO) 7.4 % (0.0-13.0); NEUTROPHILS # (AUTO) 9.1 x10^3/uL (2.2-4.8); NEUTROPHILS % (AUTO) 72.4 % (42.0-75.0); PLATELET COUNT 462 X10^3/uL (150.0-450.0); RED CELL DISTRIBUTION WIDTH 16.6 % (11.6-16.5); WHITE BLOOD COUNT 12.6 X10^3/uL (3.6-10.0)
[2019-03-02] MEDS: VANCOMYCIN HCL 1 GM VIAL 1 G in D5W 250 ML IV 250 ML IV SCH ×3 (06:00→21:03)
[2019-03-02 06:04] LABS: ALKALINE PHOSPHATASE 143 Units/L (46-116); ASPARTATE AMINO TRANSFERASE 15 Units/L (15-37); CREATININE 0.59 mg/dL (0.55-1.02); TOTAL PROTEIN 6.8 g/dL (6.4-8.2); eGFR NON BLACK RACES > 60 (>60)
[2019-03-02] MEDS: ZOSYN VIAL 4.5 GRAMS 4.5 G in NS 100 ML IV + SPIKE MINIBAG* 100 ML IV SCH ×3 (06:14→21:03)
[2019-03-02] MEDS: BACTROBAN CREAM TOP SCH ×3 (06:14→21:03)
[2019-03-02] MEDS: FLAGYL IV PREMIX 500 MG BAG 500 MG/100 ML BAG IV SCH (06:14)
[2019-03-02 06:16] LABS: ALANINE AMINOTRANSFERASE 6 Units/L (12-78); ALBUMIN 1.8 g/dL (3.4-5.0); BLOOD UREA NITROGEN 4 mg/dL (7-18); CALCIUM 8.5 mg/dL (8.5-10.1); CARBON DIOXIDE 29.5 mmol/L (21-32); CHLORIDE 107 mmol/L (98-107); COR CA(FOR HYPOALB) 10.3 mg/dL (8.5-10.1); COR NA(FOR HYPERGLY) 144 mmol/L (136-145); SODIUM 143 mmol/L (136-145)
[2019-03-02] MEDS: MORPHINE SULFATE INJ 2 MG INJ IVP PRN ×3 (06:30→20:59)
[2019-03-02] MEDS: ZOLOFT PO SCH (09:15)
[2019-03-02] MEDS: PEPCID 20 MG IV PREMIX* 20 MG/50 ML BAG IV SCH ×2 (09:15→20:48)
[2019-03-02] MEDS: HEMOCYTE-PLUS PO SCH (09:15)
[2019-03-02] MEDS: DIFLUCAN PO SCH (09:15)
[2019-03-02] MEDS: LANTUS SC SCH (09:16)
[2019-03-02] MEDS: HumuLIN R SUBCUT PRN ×2 (12:03→21:04)
[2019-03-02] MEDS: NS 500 ML IV 500 ML IV SCH ×2 (12:04→15:39)
--- NOTE | 2019-03-02 13:06 | PCM.PROG ---
Progress Note - Progress Note for Day of Date of Exam: 03/02/19 - Subjective Subjective: 33 WF ADMITTED ON 02/23 WITH FEVER, ABDOMINAL PAIN POST C SECTION WITH ABDOMINAL WALL ABSCESS. PT IS ONE DAY S/P SURGERY FOR ABSCESS REMOVAL PER DR AQUINO. PT IS CURRENTLY ON IV ATBX, WBC 12.6, HGB STABLE AT 9. PT REPORTS PAIN IS CONTROLLED AND DENIES N/V. PT REPORTS HAVING BM. CULTURE COLLECTED FROM OR STILL PENDING. PLAN TO CONTINUE WOUND CARE, DRESSING CHANGES PER SURGEON. - Past Medical Family Social History Past Med/Fam/Surg Hx: No changes since H&P Allergies: Allergies No Known Drug Allergies Allergy (Verified 02/04/19 17:17) - Review of Systems ROS: No change since H&P - Vital Signs and I&O's Vital Signs: Temperature 98 F Pulse Rate [Left Brachial] 80 Pulse Rate [Radial] 100 Respiratory Rate 18 Blood Pressure [Left Arm] 115/70 Blood Pressure [Right Arm] 96/64 Blood Pressure 95/59 O2 Sat by Pulse Oximetry 100 Intake and Output: Intake & Output 02/28/19 03/01/19 03/02/19 03/03/19 11:59 11:59 11:59 11:59 Intake Total 2240 / 2240 2825 / 2825 2500 / 2500 Output Total 300 / 300 0 / 0 Balance 1940 / 1940 2825 / 2825 2500 / 2500 - Physical Exam Oriented: Normal Eyes: Normal Ear: Normal Nose: Normal Throat: Normal Respiratory: Diminished Cardiovascular: Normal : Normal Auscultation: Bowel Sounds: Normal Tenderness: Other (mild lower abdominal tenderness around the incision . BS +) Skin: Decreased Turgur, Tender, Hot, Other (rectal exam : improving perianal abscess with soft skin , mild tenderness ) Musculoskeletal: Normal Psychiatric: Normal Mood Description: Calm Speech Pattern: Clear, Appropriate - Laboratory and Diagnostics Result Diagrams: 03/02/19 05:12 03/02/19 05:12 Labs: 02/28/19 10:26 Aspirate Gram Stain - Final 02/28/19 10:26 Aspirate Wound Culture - Preliminary 02/23/19 13:49 Blood Blood Culture - Final 02/23/19 13:41 Blood Blood Culture - Final 02/25/19 17:30 Urine,Clean Catch Urine Culture - Final Laboratory WBC 12.6 X10^3/uL (3.6-10.0) H 03/02/19 05:12 RBC 3.30 X10^6/uL (3.5-5.4) L 03/02/19 05:12 Hgb 9.0 g/dL (12.0-16.0) L 03/02/19 05:12 Hct 27.7 % (36.0-47.0) L 03/02/19 05:12 MCV 84.0 fL (80.0-100.0) 03/02/19 05:12 MCH 27.2 pg (27.0-34.0) 03/02/19 05:12 MCHC 32.3 g/dL (33.0-35.0) L 03/02/19 05:12 RDW 16.6 % (11.6-16.5) H 03/02/19 05:12 Plt Count 462 X10^3/uL (150.0-450.0) H 03/02/19 05:12 Plt Count Comment Increased (ADEQUATE) A 02/28/19 05:33 MPV 7.2 fL (7.4-11.0) L 03/02/19 05:12 Neut % (Auto) 72.4 % (42.0-75.0) 03/02/19 05:12 Lymph % (Auto) 17.6 % (21.0-51.0) L 03/02/19 05:12 [place] % (Auto) 7.4 % (0.0-13.0) 03/02/19 05:12 Eos % (Auto) 2.1 % (0.9-2.9) 03/02/19 05:12 Baso % (Auto) 0.5 % (0.2-1.0) 03/02/19 05:12 Neut # (Auto) 9.1 x10^3/uL (2.2-4.8) H 03/02/19 05:12 Lymph # (Auto) 2.2 X10^3/uL (1.3-2.9) 03/02/19 05:12 [place] # (Auto) 0.9 x10^3/uL (0.3-0.8) H 03/02/19 05:12 Eos # (Auto) 0.3 x10^3/uL (0.0-0.2) H 03/02/19 05:12 Baso # (Auto) 0.1 X10^3/uL (0.0-0.1) 03/02/19 05:12 Absolute Nucleated RBC 0.0 /100WBC 03/02/19 05:12 Plt Morphology Comment Normal (NORMAL) 02/28/19 05:33 RBC Morphology Abnormal (NORMAL) A 02/28/19 05:33 Hypochromasia 1+ A 02/28/19 05:33 Anisocytosis Slight A 02/28/19 05:33 Sodium 143 mmol/L (136-145) 03/02/19 05:12 Corrected Sodium 144 mmol/L (136-145) 03/02/19 05:12 Potassium 3.5 mmol/L (3.5-5.1) 03/02/19 05:12 Chloride 107 mmol/L (98-107) 03/02/19 05:12 Carbon Dioxide 29.5 mmol/L (21-32) 03/02/19 05:12 BUN 4 mg/dL (7-18) L 03/02/19 05:12 Creatinine 0.59 mg/dL (0.55-1.02) 03/02/19 05:12 Est GFR (MDRD) Af Amer > 60 (>60) 03/02/19 05:12 Est GFR (MDRD) Non-Af > 60 (>60) 03/02/19 05:12 Glucose 121 mg/dL (65-99) H 03/02/19 05:12 POC Glucose (mg/dL) 313 mg/dL (65-99) H 03/02/19 11:31 Calcium 8.5 mg/dL (8.5-10.1) 03/02/19 05:12 Corrected Calcium 10.3 mg/dL (8.5-10.1) H 03/02/19 05:12 Magnesium 1.7 mg/dL (1.7-2.9) 02/28/19 05:33 Iron 38 ug/dL (50-175) L 02/26/19 05:05 Transferrin 132 mg/dL (202-364) L 02/26/19 05:05 Ferritin 213 ng/mL (8-252) 02/26/19 05:05 Total Bilirubin 0.10 mg/dL (0.2-1.0) L 03/02/19 05:12 AST 15 Units/L (15-37) 03/02/19 05:12 ALT 6 Units/L (12-78) L 03/02/19 05:12 Alkaline Phosphatase 143 Units/L (46-116) H 03/02/19 05:12 Total Protein 6.8 g/dL (6.4-8.2) 03/02/19 05:12 Albumin 1.8 g/dL (3.4-5.0) L 03/02/19 05:12 Globulin 5.0 g/dL (2.5-4.5) H 03/02/19 05:12 Albumin/Globulin Ratio 0.4 Ratio (1.1-2.1) L 03/02/19 05:12 Vitamin B12 918 pg/mL (193-986) 02/26/19 05:05 Folate 5.9 ng/mL (>8.6) L 02/26/19 05:05 Specimen Type Random urine 02/24/19 07:57 Urine Color Yellow (YELLOW) 02/24/19 07:57 Urine Appearance Hazy (CLEAR) 02/24/19 07:57 Urine pH 6.0 (5.0 - 8.0) 02/24/19 07:57 Ur Specific [place] 1.010 (1.000-1.030) 02/24/19 07:57 Urine Protein 2+ (NEGATIVE) 02/24/19 07:57 Urine Glucose (UA) 4+ (NEGATIVE) 02/24/19 07:57 Urine Ketones 3+ (NEGATIVE) 02/24/19 07:57 Urine Occult Blood 5+ (NEGATIVE) 02/24/19 07:57 Urine Nitrite Negative (NEGATIVE) 02/24/19 07:57 Urine Bilirubin Negative (NEGATIVE) 02/24/19 07:57 Urine Urobilinogen Normal (NORMAL) 02/24/19 07:57 Ur Leukocyte Esterase 3+ (NEGATIVE) 02/24/19 07:57 Urine RBC 10-20 /HPF (NONE SEEN) 02/24/19 07:57 Urine WBC Tntc /HPF (NONE SEEN) 02/24/19 07:57 Ur Squamous Epith Cells Moderate /HPF (NEGATIVE) 02/24/19 07:57 Urine Bacteria Trace /HPF (NEGATIVE) 02/24/19 07:57 Ur Culture Indicated? No/not indicated 02/24/19 07:57 Vancomycin Trough 10.3 ug/mL (15-20) L 03/01/19 21:02 Blood Type A POSITIVE 02/26/19 12:39 Antibody Screen Negative 02/26/19 12:39 Crossmatch See Detail 02/26/19 12:39 - Plan (1) Abdominal wall abscess at site of surgical wound Status: Acute Plan: IV ATBX, WOUND CARE, PAIN CONTROL. DR AQUINO CONSULTING. CUTLURES PENDING. AM LABS (2) Abdominal pain Status: Acute Plan: AM LABS. CBC CMP BC, UA UC. NPO FOR PROCEDURE. IV ATBX THERAPY, IV HYDRATION (3) Fever Status: Acute (4) Diabetes Status: Chronic (5) Anemia Status: Acute Plan: S/P TRANSFUSE RBC, IRON INFUSION
[2019-03-02] MEDS: SNACK - Diabetic Appropriate PO SCH (20:00)
[2019-03-02] MEDS: MIRALAX POWDER (1 DOSE 17 G) PO SCH (21:02)
[2019-03-02] MEDS: ULTRAM PO PRN (22:30)
[2019-03-03 05:23] LABS: VANCOMYCIN,TROUGH 12.9 ug/mL (15-20)
[2019-03-03 05:35] LABS: BASOPHILS # (AUTO) 0.1 X10^3/uL (0.0-0.1); BASOPHILS % (AUTO) 0.6 % (0.2-1.0); EOSINOPHILS # (AUTO) 0.2 x10^3/uL (0.0-0.2); EOSINOPHILS % (AUTO) 2.3 % (0.9-2.9); HEMATOCRIT 28.5 % (36.0-47.0); HEMOGLOBIN 9.3 g/dL (12.0-16.0); LYMPHOCYTES # (AUTO) 1.8 X10^3/uL (1.3-2.9); LYMPHOCYTES % (AUTO) 18.1 % (21.0-51.0); MEAN CORPUSCULAR HEMOGLOBIN 27.4 pg (27.0-34.0); MEAN CORPUSCULAR HGB CONC 32.5 g/dL (33.0-35.0); MEAN CORPUSCULAR VOLUME 84.3 fL (80.0-100.0); MEAN PLATELET VOLUME 7.1 fL (7.4-11.0); MONOCYTES # (AUTO) 0.8 x10^3/uL (0.3-0.8); MONOCYTES % (AUTO) 8.3 % (0.0-13.0); NEUTROPHILS # (AUTO) 7.2 x10^3/uL (2.2-4.8); NEUTROPHILS % (AUTO) 70.7 % (42.0-75.0); PLATELET COUNT 459 X10^3/uL (150.0-450.0); RED BLOOD COUNT 3.39 X10^6/uL (3.5-5.4); RED CELL DISTRIBUTION WIDTH 16.7 % (11.6-16.5); WHITE BLOOD COUNT 10.1 X10^3/uL (3.6-10.0)
[2019-03-03 05:36] LABS: ALANINE AMINOTRANSFERASE 8 Units/L (12-78); ALBUMIN 1.9 g/dL (3.4-5.0); ALKALINE PHOSPHATASE 145 Units/L (46-116); ASPARTATE AMINO TRANSFERASE 12 Units/L (15-37); BLOOD UREA NITROGEN 2 mg/dL (7-18); CALCIUM 8.6 mg/dL (8.5-10.1); CARBON DIOXIDE 29.8 mmol/L (21-32); CHLORIDE 107 mmol/L (98-107); COR CA(FOR HYPOALB) 10.3 mg/dL (8.5-10.1); COR NA(FOR HYPERGLY) 149 mmol/L (136-145); CREATININE 0.75 mg/dL (0.55-1.02); SODIUM 145 mmol/L (136-145); TOTAL PROTEIN 6.8 g/dL (6.4-8.2); eGFR NON BLACK RACES > 60 (>60)
[2019-03-03] MEDS: VANCOMYCIN HCL 1 GM VIAL 1 G in D5W 250 ML IV 250 ML IV SCH ×3 (05:43→21:55)
[2019-03-03] MEDS: BACTROBAN CREAM TOP SCH ×3 (05:44→21:56)
[2019-03-03] MEDS: ZOSYN VIAL 4.5 GRAMS 4.5 G in NS 100 ML IV + SPIKE MINIBAG* 100 ML IV SCH ×3 (05:44→21:56)
[2019-03-03] MEDS: HumuLIN R SUBCUT PRN ×3 (06:16→23:10)
[2019-03-03] MEDS: DIFLUCAN PO SCH (10:29)
[2019-03-03] MEDS: LANTUS SC SCH (10:30)
[2019-03-03] MEDS: HEMOCYTE-PLUS PO SCH (10:30)
[2019-03-03] MEDS: ZOLOFT PO SCH (10:30)
[2019-03-03] MEDS: PEPCID 20 MG IV PREMIX* 20 MG/50 ML BAG IV SCH ×2 (10:32→21:57)
[2019-03-03] MEDS: MORPHINE SULFATE INJ 2 MG INJ IVP PRN ×2 (10:39→18:18)
--- NOTE | 2019-03-03 11:25 | PCM.PROG ---
Progress Note - Progress Note for Day of Date of Exam: 03/03/19 - Subjective Subjective: 33 WF ADMITTED ON 02/23 WITH FEVER, ABDOMINAL PAIN POST C SECTION WITH ABDOMINAL WALL ABSCESS. PT IS S/P SURGERY FOR ABSCESS REMOVAL PER DR AQUINO. PT IS CURRENTLY ON IV ATBX, WBC 10.1, HGB STABLE AT 9.3. PT REPORTS PAIN IS CONTROLLED AND DENIES N/V. PT REPORTS HAVING BM. CULTURE COLLECTED FROM OR STILL PENDING. DRESSING HAD MODERATE AMOUNT OF PURULENT DC WITH PACKING SATURATED, WILL CONTINUE PACKING CHANGES AND DRESSING CHANGES. ON VANCOMYCIN. - Past Medical Family Social History Past Med/Fam/Surg Hx: No changes since H&P Allergies: Allergies No Known Drug Allergies Allergy (Verified 02/04/19 17:17) - Review of Systems ROS: No change since H&P - Vital Signs and I&O's Vital Signs: Temperature 98 F Pulse Rate [Right Brachial] 69 Pulse Rate [Left Brachial] 74 Pulse Rate [Radial] 100 Respiratory Rate 18 Blood Pressure [Left Arm] 115/79 Blood Pressure [Right Arm] 113/70 Blood Pressure 95/59 O2 Sat by Pulse Oximetry 99 Intake and Output: Intake & Output 02/28/19 03/01/19 03/02/19 03/03/19 11:59 11:59 11:59 11:59 Intake Total 2240 / 2240 2825 / 2825 2500 / 2500 3340 / 3340 Output Total 300 / 300 0 / 0 Balance 1940 / 1940 2825 / 2825 2500 / 2500 3340 / 3340 - Physical Exam Oriented: Normal Eyes: Normal Ear: Normal Nose: Normal Throat: Normal Respiratory: Diminished Cardiovascular: Normal : Normal Auscultation: Bowel Sounds: Normal Tenderness: Other (mild lower abdominal tenderness around the incision . BS +) Skin: Wound (ABDOMINAL WOUND WITH IODOFORM PAKCING.) Musculoskeletal: Normal Psychiatric: Normal Mood Description: Calm Speech Pattern: Clear, Appropriate - Laboratory and Diagnostics Result Diagrams: 03/03/19 04:27 03/03/19 04:27 Labs: 02/28/19 10:26 Aspirate Gram Stain - Final 02/28/19 10:26 Aspirate Wound Culture - Preliminary 02/23/19 13:49 Blood Blood Culture - Final 02/23/19 13:41 Blood Blood Culture - Final 02/25/19 17:30 Urine,Clean Catch Urine Culture - Final Laboratory WBC 10.1 X10^3/uL (3.6-10.0) H 03/03/19 04:27 RBC 3.39 X10^6/uL (3.5-5.4) L 03/03/19 04:27 Hgb 9.3 g/dL (12.0-16.0) L 03/03/19 04:27 Hct 28.5 % (36.0-47.0) L 03/03/19 04:27 MCV 84.3 fL (80.0-100.0) 03/03/19 04:27 MCH 27.4 pg (27.0-34.0) 03/03/19 04:27 MCHC 32.5 g/dL (33.0-35.0) L 03/03/19 04:27 RDW 16.7 % (11.6-16.5) H 03/03/19 04:27 Plt Count 459 X10^3/uL (150.0-450.0) H 03/03/19 04:27 Plt Count Comment Increased (ADEQUATE) A 02/28/19 05:33 MPV 7.1 fL (7.4-11.0) L 03/03/19 04:27 Neut % (Auto) 70.7 % (42.0-75.0) 03/03/19 04:27 Lymph % (Auto) 18.1 % (21.0-51.0) L 03/03/19 04:27 [place] % (Auto) 8.3 % (0.0-13.0) 03/03/19 04:27 Eos % (Auto) 2.3 % (0.9-2.9) 03/03/19 04:27 Baso % (Auto) 0.6 % (0.2-1.0) 03/03/19 04:27 Neut # (Auto) 7.2 x10^3/uL (2.2-4.8) H 03/03/19 04:27 Lymph # (Auto) 1.8 X10^3/uL (1.3-2.9) 03/03/19 04:27 [place] # (Auto) 0.8 x10^3/uL (0.3-0.8) 03/03/19 04:27 Eos # (Auto) 0.2 x10^3/uL (0.0-0.2) 03/03/19 04:27 Baso # (Auto) 0.1 X10^3/uL (0.0-0.1) 03/03/19 04:27 Absolute Nucleated RBC 0.1 /100WBC 03/03/19 04:27 Plt Morphology Comment Normal (NORMAL) 02/28/19 05:33 RBC Morphology Abnormal (NORMAL) A 02/28/19 05:33 Hypochromasia 1+ A 02/28/19 05:33 Anisocytosis Slight A 02/28/19 05:33 Sodium 145 mmol/L (136-145) 03/03/19 04:27 Corrected Sodium 149 mmol/L (136-145) H 03/03/19 04:27 Potassium 3.4 mmol/L (3.5-5.1) L 03/03/19 04:27 Chloride 107 mmol/L (98-107) 03/03/19 04:27 Carbon Dioxide 29.8 mmol/L (21-32) 03/03/19 04:27 BUN 2 mg/dL (7-18) L 03/03/19 04:27 Creatinine 0.75 mg/dL (0.55-1.02) 03/03/19 04:27 Est GFR (MDRD) Af Amer > 60 (>60) 03/03/19 04:27 Est GFR (MDRD) Non-Af > 60 (>60) 03/03/19 04:27 Glucose 256 mg/dL (65-99) H 03/03/19 04:27 POC Glucose (mg/dL) 219 mg/dL (65-99) H 03/03/19 05:28 Calcium 8.6 mg/dL (8.5-10.1) 03/03/19 04:27 Corrected Calcium 10.3 mg/dL (8.5-10.1) H 03/03/19 04:27 Magnesium 1.7 mg/dL (1.7-2.9) 03/03/19 04:27 Iron 38 ug/dL (50-175) L 02/26/19 05:05 Transferrin 132 mg/dL (202-364) L 02/26/19 05:05 Ferritin 213 ng/mL (8-252) 02/26/19 05:05 Total Bilirubin 0.10 mg/dL (0.2-1.0) L 03/03/19 04:27 AST 12 Units/L (15-37) L 03/03/19 04:27 ALT 8 Units/L (12-78) L 03/03/19 04:27 Alkaline Phosphatase 145 Units/L (46-116) H 03/03/19 04:27 Total Protein 6.8 g/dL (6.4-8.2) 03/03/19 04:27 Albumin 1.9 g/dL (3.4-5.0) L 03/03/19 04:27 Globulin 4.9 g/dL (2.5-4.5) H 03/03/19 04:27 Albumin/Globulin Ratio 0.4 Ratio (1.1-2.1) L 03/03/19 04:27 Vitamin B12 918 pg/mL (193-986) 02/26/19 05:05 Folate 5.9 ng/mL (>8.6) L 02/26/19 05:05 Specimen Type Random urine 02/24/19 07:57 Urine Color Yellow (YELLOW) 02/24/19 07:57 Urine Appearance Hazy (CLEAR) 02/24/19 07:57 Urine pH 6.0 (5.0 - 8.0) 02/24/19 07:57 Ur Specific [place] 1.010 (1.000-1.030) 02/24/19 07:57 Urine Protein 2+ (NEGATIVE) 02/24/19 07:57 Urine Glucose (UA) 4+ (NEGATIVE) 02/24/19 07:57 Urine Ketones 3+ (NEGATIVE) 02/24/19 07:57 Urine Occult Blood 5+ (NEGATIVE) 02/24/19 07:57 Urine Nitrite Negative (NEGATIVE) 02/24/19 07:57 Urine Bilirubin Negative (NEGATIVE) 02/24/19 07:57 Urine Urobilinogen Normal (NORMAL) 02/24/19 07:57 Ur Leukocyte Esterase 3+ (NEGATIVE) 02/24/19 07:57 Urine RBC 10-20 /HPF (NONE SEEN) 02/24/19 07:57 Urine WBC Tntc /HPF (NONE SEEN) 02/24/19 07:57 Ur Squamous Epith Cells Moderate /HPF (NEGATIVE) 02/24/19 07:57 Urine Bacteria Trace /HPF (NEGATIVE) 02/24/19 07:57 Ur Culture Indicated? No/not indicated 02/24/19 07:57 Vancomycin Trough 12.9 ug/mL (15-20) L 03/03/19 04:27 Blood Type A POSITIVE 02/26/19 12:39 Antibody Screen Negative 02/26/19 12:39 Crossmatch See Detail 02/26/19 12:39 - Plan (1) Abdominal wall abscess at site of surgical wound Status: Acute Plan: IV ATBX, WOUND CARE, PAIN CONTROL. DR AQUINO CONSULTING. CUTLURES P ENDING. AM LABS (2) Abdominal pain Status: Acute Plan: AM LABS. CBC CMP BC, UA UC. NPO FOR PROCEDURE. IV ATBX THERAPY, IV HYDR ATION (3) Fever Status: Acute (4) Diabetes Status: Chronic (5) Anemia Status: Acute Plan: S/P TRANSFUSE RBC, IRON INFUSION
[2019-03-03] MEDS: K-DUR TAB 20 MEQ PO PRN (16:30)
[2019-03-03] MEDS: MAGNESIUM SULFATE 1 GRAM/100 mL PREMIX 1 GM/100 ML BAG IV PRN ×2 (16:44→17:45)
[2019-03-03] MEDS: SNACK - Diabetic Appropriate PO SCH (20:00)
[2019-03-03] MEDS: COLACE CAP 100 MG PO SCH (21:54)
[2019-03-03] MEDS: MIRALAX POWDER (1 DOSE 17 G) PO SCH (21:56)
[2019-03-03] MEDS: ULTRAM PO PRN (22:01)
[2019-03-04] MEDS: MORPHINE SULFATE INJ 2 MG INJ IVP PRN ×3 (01:45→21:30)
[2019-03-04 05:07] LABS: BASOPHILS # (AUTO) 0.1 X10^3/uL (0.0-0.1); BASOPHILS % (AUTO) 0.7 % (0.2-1.0); EOSINOPHILS # (AUTO) 0.3 x10^3/uL (0.0-0.2); EOSINOPHILS % (AUTO) 2.6 % (0.9-2.9); HEMATOCRIT 31.1 % (36.0-47.0); HEMOGLOBIN 9.9 g/dL (12.0-16.0); LYMPHOCYTES # (AUTO) 1.9 X10^3/uL (1.3-2.9); LYMPHOCYTES % (AUTO) 15.9 % (21.0-51.0); MEAN CORPUSCULAR HEMOGLOBIN 27.2 pg (27.0-34.0); MEAN CORPUSCULAR HGB CONC 31.9 g/dL (33.0-35.0); MEAN CORPUSCULAR VOLUME 85.3 fL (80.0-100.0); MEAN PLATELET VOLUME 7.1 fL (7.4-11.0); MONOCYTES % (AUTO) 8.5 % (0.0-13.0); NEUTROPHILS # (AUTO) 8.8 x10^3/uL (2.2-4.8); NEUTROPHILS % (AUTO) 72.3 % (42.0-75.0); PLATELET COUNT 499 X10^3/uL (150.0-450.0); RED BLOOD COUNT 3.65 X10^6/uL (3.5-5.4); RED CELL DISTRIBUTION WIDTH 17.3 % (11.6-16.5); WHITE BLOOD COUNT 12.2 X10^3/uL (3.6-10.0)
[2019-03-04 05:14] LABS: CREATININE 0.83 mg/dL (0.55-1.02); VANCOMYCIN,TROUGH 19.7 ug/mL (15-20)
[2019-03-04 05:16] LABS: ALANINE AMINOTRANSFERASE 10 Units/L (12-78); ALBUMIN 2.1 g/dL (3.4-5.0); ALKALINE PHOSPHATASE 152 Units/L (46-116); ASPARTATE AMINO TRANSFERASE 15 Units/L (15-37); BLOOD UREA NITROGEN 2 mg/dL (7-18); CALCIUM 8.9 mg/dL (8.5-10.1); CARBON DIOXIDE 30.6 mmol/L (21-32); CHLORIDE 106 mmol/L (98-107); COR CA(FOR HYPOALB) 10.4 mg/dL (8.5-10.1); CREATININE 0.76 mg/dL (0.55-1.02); SODIUM 145 mmol/L (136-145); TOTAL PROTEIN 7.3 g/dL (6.4-8.2); eGFR NON BLACK RACES > 60 (>60)
[2019-03-04 05:30] LABS: PLATELET MORPHOLOGY COMMENT NORMAL (NORMAL)
[2019-03-04] MEDS: BACTROBAN CREAM TOP SCH (05:32)
[2019-03-04] MEDS: VANCOMYCIN HCL 1 GM VIAL 1 G in D5W 250 ML IV 250 ML IV SCH ×3 (05:33→21:34)
[2019-03-04] MEDS: ZOSYN VIAL 4.5 GRAMS 4.5 G in NS 100 ML IV + SPIKE MINIBAG* 100 ML IV SCH ×3 (05:33→21:34)
[2019-03-04] MEDS: K-DUR TAB 20 MEQ PO PRN (05:55)
[2019-03-04] MEDS: LANTUS SC SCH (09:28)
[2019-03-04] MEDS: PEPCID 20 MG IV PREMIX* 20 MG/50 ML BAG IV SCH ×2 (09:30→21:35)
[2019-03-04] MEDS: DIFLUCAN PO SCH (09:30)
[2019-03-04] MEDS: ZOLOFT PO SCH (09:30)
[2019-03-04] MEDS: HEMOCYTE-PLUS PO SCH (09:30)
[2019-03-04] MEDS: HumuLIN R SUBCUT PRN ×2 (12:07→21:36)
[2019-03-04] MEDS: ULTRAM PO PRN (12:30)
[2019-03-04 14:50] LABS: CREATININE 0.88 mg/dL (0.55-1.02); VANCOMYCIN,TROUGH 14.2 ug/mL (15-20)
[2019-03-04] MEDS: COLACE CAP 100 MG PO SCH (21:34)
[2019-03-04] MEDS: MIRALAX POWDER (1 DOSE 17 G) PO SCH (21:35)
[2019-03-04] MEDS: SNACK - Diabetic Appropriate PO SCH (21:36)
[2019-03-05 05:21] LABS: BASOPHILS # (AUTO) 0.1 X10^3/uL (0.0-0.1); BASOPHILS % (AUTO) 0.7 % (0.2-1.0); EOSINOPHILS # (AUTO) 0.3 x10^3/uL (0.0-0.2); EOSINOPHILS % (AUTO) 2.5 % (0.9-2.9); HEMATOCRIT 32.2 % (36.0-47.0); HEMOGLOBIN 10.2 g/dL (12.0-16.0); LYMPHOCYTES # (AUTO) 1.8 X10^3/uL (1.3-2.9); LYMPHOCYTES % (AUTO) 12.8 % (21.0-51.0); MEAN CORPUSCULAR HEMOGLOBIN 27.2 pg (27.0-34.0); MEAN CORPUSCULAR HGB CONC 31.7 g/dL (33.0-35.0); MEAN PLATELET VOLUME 7.4 fL (7.4-11.0); MONOCYTES # (AUTO) 1.2 x10^3/uL (0.3-0.8); MONOCYTES % (AUTO) 8.5 % (0.0-13.0); NEUTROPHILS # (AUTO) 10.5 x10^3/uL (2.2-4.8); NEUTROPHILS % (AUTO) 75.5 % (42.0-75.0); PLATELET COUNT 491 X10^3/uL (150.0-450.0); RED BLOOD COUNT 3.75 X10^6/uL (3.5-5.4); RED CELL DISTRIBUTION WIDTH 17.8 % (11.6-16.5); WHITE BLOOD COUNT 13.9 X10^3/uL (3.6-10.0)
[2019-03-05 05:30] LABS: ALANINE AMINOTRANSFERASE 9 Units/L (12-78); ALBUMIN 2.2 g/dL (3.4-5.0); ALKALINE PHOSPHATASE 153 Units/L (46-116); ASPARTATE AMINO TRANSFERASE 10 Units/L (15-37); BLOOD UREA NITROGEN 5 mg/dL (7-18); CALCIUM 9.1 mg/dL (8.5-10.1); CARBON DIOXIDE 32.1 mmol/L (21-32); CHLORIDE 103 mmol/L (98-107); COR CA(FOR HYPOALB) 10.5 mg/dL (8.5-10.1); COR NA(FOR HYPERGLY) 143 mmol/L (136-145); CREATININE 0.98 mg/dL (0.55-1.02); SODIUM 141 mmol/L (136-145); TOTAL PROTEIN 7.6 g/dL (6.4-8.2); eGFR NON BLACK RACES > 60 (>60)
[2019-03-05 05:37] LABS: ANISOCYTOSIS SLIGHT; PLATELET MORPHOLOGY COMMENT NORMAL (NORMAL)
[2019-03-05] MEDS: VANCOMYCIN HCL 1 GM VIAL 1 G in D5W 250 ML IV 250 ML IV SCH ×2 (05:45→13:06)
[2019-03-05] MEDS: HumuLIN R SUBCUT PRN ×4 (06:10→20:24)
[2019-03-05] MEDS: ZOSYN VIAL 4.5 GRAMS 4.5 G in NS 100 ML IV + SPIKE MINIBAG* 100 ML IV SCH ×3 (06:10→22:25)
[2019-03-05] MEDS: LANTUS SC SCH (09:09)
[2019-03-05] MEDS: DIFLUCAN PO SCH (09:11)
[2019-03-05] MEDS: HEMOCYTE-PLUS PO SCH (09:11)
[2019-03-05] MEDS: PEPCID 20 MG IV PREMIX* 20 MG/50 ML BAG IV SCH ×2 (09:11→20:19)
[2019-03-05] MEDS: ZOLOFT PO SCH (09:11)
--- NOTE | 2019-03-05 09:17 | RAD ---
History: Diminished breath sounds Study: PA and lateral chest Comparison: February 27, 2019 Findings: The lungs are clear and the heart and mediastinum are unremarkable. There is no edema or effusion. No bony abnormality is demonstrated. Impression: No evidence for acute cardiopulmonary disease Reported By:
[2019-03-05] MEDS: MORPHINE SULFATE INJ 2 MG INJ IVP PRN ×2 (09:23→23:48)
--- NOTE | 2019-03-05 17:25 | PCM.PROG ---
Progress Note - Progress Note for Day of Date of Exam: 03/04/19 - Subjective Subjective: 33 WF ADMITTED ON 02/23 WITH FEVER, ABDOMINAL PAIN POST C SECTION WITH ABDOMINAL WALL ABSCESS. PT IS S/P SURGERY FOR ABSCESS REMOVAL PER DR AQUINO. PT IS CURRENTLY ON IV ATBX, WBC 12.2, HGB STABLE AT 9.9. PT REPORTS PAIN IS CONTROLLED AND DENIES N/V. PT REPORTS HAVING BM. CULTURE COLLECTED FROM OR STILL PENDING. DRESSING HAD MILD AMOUNT OF PURULENT DC. NO INCREASED REDNESS TO SURROUNDING TISSUE, PT IS AFEBRILE. - Past Medical Family Social History Past Med/Fam/Surg Hx: No changes since H&P Allergies: Allergies No Known Drug Allergies Allergy (Verified 02/04/19 17:17) - Review of Systems ROS: No change since H&P - Vital Signs and I&O's Vital Signs: Temperature 99.6 F Pulse Rate [Right Brachial] 91 Pulse Rate [Left Brachial] 84 Pulse Rate [Radial] 100 Respiratory Rate 18 Blood Pressure [Left Arm] 101/69 Blood Pressure [Right Arm] 110/62 Blood Pressure 95/59 O2 Sat by Pulse Oximetry 99 Intake and Output: Intake & Output 03/03/19 03/04/19 03/05/19 03/06/19 11:59 11:59 11:59 11:59 Intake Total 3340 / 3340 3370 / 3370 3190 / 3190 600 / 600 Balance 3340 / 3340 3370 / 3370 3190 / 3190 600 / 600 - Physical Exam Oriented: Normal Eyes: Normal Ear: Normal Nose: Normal Throat: Normal Respiratory: Diminished Cardiovascular: Normal : Normal Auscultation: Bowel Sounds: Normal Tenderness: Other (mild lower abdominal tenderness around the incision . BS +) Skin: Wound (ABDOMINAL WOUND WITH IODOFORM PAKCING.) Musculoskeletal: Normal Psychiatric: Normal Mood Description: Calm Speech Pattern: Clear, Appropriate - Laboratory and Diagnostics Result Diagrams: 03/05/19 04:15 03/05/19 04:15 Labs: 02/28/19 10:26 Aspirate Gram Stain - Final 02/28/19 10:26 Aspirate Wound Culture - Preliminary 02/23/19 13:49 Blood Blood Culture - Final 02/23/19 13:41 Blood Blood Culture - Final 02/25/19 17:30 Urine,Clean Catch Urine Culture - Final Laboratory WBC 13.9 X10^3/uL (3.6-10.0) H 03/05/19 04:15 RBC 3.75 X10^6/uL (3.5-5.4) 03/05/19 04:15 Hgb 10.2 g/dL (12.0-16.0) L 03/05/19 04:15 Hct 32.2 % (36.0-47.0) L 03/05/19 04:15 MCV 86.0 fL (80.0-100.0) 03/05/19 04:15 MCH 27.2 pg (27.0-34.0) 03/05/19 04:15 MCHC 31.7 g/dL (33.0-35.0) L 03/05/19 04:15 RDW 17.8 % (11.6-16.5) H 03/05/19 04:15 Plt Count 491 X10^3/uL (150.0-450.0) H 03/05/19 04:15 Plt Count Comment Adequate (ADEQUATE) 03/05/19 04:15 MPV 7.4 fL (7.4-11.0) 03/05/19 04:15 Neut % (Auto) 75.5 % (42.0-75.0) H 03/05/19 04:15 Lymph % (Auto) 12.8 % (21.0-51.0) L 03/05/19 04:15 [place] % (Auto) 8.5 % (0.0-13.0) 03/05/19 04:15 Eos % (Auto) 2.5 % (0.9-2.9) 03/05/19 04:15 Baso % (Auto) 0.7 % (0.2-1.0) 03/05/19 04:15 Neut # (Auto) 10.5 x10^3/uL (2.2-4.8) H 03/05/19 04:15 Lymph # (Auto) 1.8 X10^3/uL (1.3-2.9) 03/05/19 04:15 [place] # (Auto) 1.2 x10^3/uL (0.3-0.8) H 03/05/19 04:15 Eos # (Auto) 0.3 x10^3/uL (0.0-0.2) H 03/05/19 04:15 Baso # (Auto) 0.1 X10^3/uL (0.0-0.1) 03/05/19 04:15 Absolute Nucleated RBC 0.0 /100WBC 03/05/19 04:15 Plt Morphology Comment Normal (NORMAL) 03/05/19 04:15 RBC Morphology Abnormal (NORMAL) A 03/05/19 04:15 Hypochromasia 1+ A 02/28/19 05:33 Anisocytosis Slight A 03/05/19 04:15 Sodium 141 mmol/L (136-145) 03/05/19 04:15 Corrected Sodium 143 mmol/L (136-145) 03/05/19 04:15 Potassium 4.4 mmol/L (3.5-5.1) 03/05/19 04:15 Chloride 103 mmol/L (98-107) 03/05/19 04:15 Carbon Dioxide 32.1 mmol/L (21-32) H 03/05/19 04:15 BUN 5 mg/dL (7-18) L 03/05/19 04:15 Creatinine 0.98 mg/dL (0.55-1.02) 03/05/19 04:15 Est GFR (MDRD) Af Amer > 60 (>60) 03/05/19 04:15 Est GFR (MDRD) Non-Af > 60 (>60) 03/05/19 04:15 Glucose 198 mg/dL (65-99) H 03/05/19 04:15 POC Glucose (mg/dL) 266 mg/dL (65-99) H 03/05/19 16:23 Calcium 9.1 mg/dL (8.5-10.1) 03/05/19 04:15 Corrected Calcium 10.5 mg/dL (8.5-10.1) H 03/05/19 04:15 Magnesium 2.1 mg/dL (1.7-2.9) 03/04/19 04:21 Iron 38 ug/dL (50-175) L 02/26/19 05:05 Transferrin 132 mg/dL (202-364) L 02/26/19 05:05 Ferritin 213 ng/mL (8-252) 02/26/19 05:05 Total Bilirubin 0.20 mg/dL (0.2-1.0) 03/05/19 04:15 AST 10 Units/L (15-37) L 03/05/19 04:15 ALT 9 Units/L (12-78) L 03/05/19 04:15 Alkaline Phosphatase 153 Units/L (46-116) H 03/05/19 04:15 Total Protein 7.6 g/dL (6.4-8.2) 03/05/19 04:15 Albumin 2.2 g/dL (3.4-5.0) L 03/05/19 04:15 Globulin 5.4 g/dL (2.5-4.5) H 03/05/19 04:15 Albumin/Globulin Ratio 0.4 Ratio (1.1-2.1) L 03/05/19 04:15 Vitamin B12 918 pg/mL (193-986) 02/26/19 05:05 Folate 5.9 ng/mL (>8.6) L 02/26/19 05:05 Specimen Type Random urine 02/24/19 07:57 Urine Color Yellow (YELLOW) 02/24/19 07:57 Urine Appearance Hazy (CLEAR) 02/24/19 07:57 Urine pH 6.0 (5.0 - 8.0) 02/24/19 07:57 Ur Specific [place] 1.010 (1.000-1.030) 02/24/19 07:57 Urine Protein 2+ (NEGATIVE) 02/24/19 07:57 Urine Glucose (UA) 4+ (NEGATIVE) 02/24/19 07:57 Urine Ketones 3+ (NEGATIVE) 02/24/19 07:57 Urine Occult Blood 5+ (NEGATIVE) 02/24/19 07:57 Urine Nitrite Negative (NEGATIVE) 02/24/19 07:57 Urine Bilirubin Negative (NEGATIVE) 02/24/19 07:57 Urine Urobilinogen Normal (NORMAL) 02/24/19 07:57 Ur Leukocyte Esterase 3+ (NEGATIVE) 02/24/19 07:57 Urine RBC 10-20 /HPF (NONE SEEN) 02/24/19 07:57 Urine WBC Tntc /HPF (NONE SEEN) 02/24/19 07:57 Ur Squamous Epith Cells Moderate /HPF (NEGATIVE) 02/24/19 07:57 Urine Bacteria Trace /HPF (NEGATIVE) 02/24/19 07:57 Ur Culture Indicated? No/not indicated 02/24/19 07:57 Vancomycin Trough 14.2 ug/mL (15-20) L 03/04/19 13:52 Blood Type A POSITIVE 02/26/19 12:39 Antibody Screen Negative 02/26/19 12:39 Crossmatch See Detail 02/26/19 12:39 - Plan (1) Abdominal wall abscess at site of surgical wound Status: Acute Plan: IV ATBX, WOUND CARE, PAIN CONTROL. DR AQUINO CONSULTING. CUTLURES PENDING. AM LABS (2) Abdominal pain Status: Acute Plan: AM LABS. CBC CMP BC, UA UC. NPO FOR PROCEDURE. IV ATBX THERAPY, IV HYDRATION (3) Fever Status: Acute (4) Diabetes Status: Chronic (5) Anemia Status: Acute Plan: S/P TRANSFUSE RBC, IRON INFUSION
--- NOTE | 2019-03-05 17:27 | PCM.PROG ---
Progress Note - Progress Note for Day of Date of Exam: 03/05/19 - Subjective Subjective: 33 WF ADMITTED ON 02/23 WITH FEVER, ABDOMINAL PAIN POST C SECTION WITH ABDOMINAL WALL ABSCESS. PT IS S/P SURGERY FOR ABSCESS REMOVAL PER DR AQUINO. PT IS CURRENTLY ON IV ATBX, WBC 13.9, HGB STABLE AT 10.2. PT REPORTS PAIN IS CONTROLLED AND DENIES N/V. . CULTURE COLLECTED FROM OR STILL PENDING. DRESSING HAD MILD AMOUNT OF PURULENT DC, PACKING REMOVED TODAY. DR SOSA CLEARED FOR DC HOME WITH F/U IN HIS OFFICE ON TUESDAY. NO INCREASED REDNESS TO SURROUNDING TISSUE, PT IS AFEBRILE. PLAN TO D/C HOME TOMORROW AFTER AM IV INFUSION OF ATBX THERAPY. NURSING STAFF TO EDUCATION ON WOUND CARE, DRESSING CHANGES - Past Medical Family Social History Past Med/Fam/Surg Hx: No changes since H&P Allergies: Allergies No Known Drug Allergies Allergy (Verified 02/04/19 17:17) - Review of Systems ROS: No change since H&P - Vital Signs and I&O's Vital Signs: Temperature 99.6 F Pulse Rate [Right Brachial] 91 Pulse Rate [Left Brachial] 84 Pulse Rate [Radial] 100 Respiratory Rate 18 Blood Pressure [Left Arm] 101/69 Blood Pressure [Right Arm] 110/62 Blood Pressure 95/59 O2 Sat by Pulse Oximetry 99 Intake and Output: Intake & Output 03/03/19 03/04/19 03/05/19 03/06/19 11:59 11:59 11:59 11:59 Intake Total 3340 / 3340 3370 / 3370 3190 / 3190 600 / 600 Balance 3340 / 3340 3370 / 3370 3190 / 3190 600 / 600 - Physical Exam Oriented: Normal Eyes: Normal Ear: Normal Nose: Normal Throat: Normal Respiratory: Diminished Cardiovascular: Normal : Normal Auscultation: Bowel Sounds: Normal Tenderness: Other (mild lower abdominal tenderness around the incision . BS +) Skin: Wound (ABDOMINAL WOUND WITH IODOFORM PAKCING.) Musculoskeletal: Normal Psychiatric: Normal Mood Description: Calm Speech Pattern: Clear, Appropriate - Laboratory and Diagnostics Result Diagrams: 03/05/19 04:15 03/05/19 04:15 Labs: 02/28/19 10:26 Aspirate Gram Stain - Final 02/28/19 10:26 Aspirate Wound Culture - Preliminary 02/23/19 13:49 Blood Blood Culture - Final 02/23/19 13:41 Blood Blood Culture - Final 02/25/19 17:30 Urine,Clean Catch Urine Culture - Final Laboratory WBC 13.9 X10^3/uL (3.6-10.0) H 03/05/19 04:15 RBC 3.75 X10^6/uL (3.5-5.4) 03/05/19 04:15 Hgb 10.2 g/dL (12.0-16.0) L 03/05/19 04:15 Hct 32.2 % (36.0-47.0) L 03/05/19 04:15 MCV 86.0 fL (80.0-100.0) 03/05/19 04:15 MCH 27.2 pg (27.0-34.0) 03/05/19 04:15 MCHC 31.7 g/dL (33.0-35.0) L 03/05/19 04:15 RDW 17.8 % (11.6-16.5) H 03/05/19 04:15 Plt Count 491 X10^3/uL (150.0-450.0) H 03/05/19 04:15 Plt Count Comment Adequate (ADEQUATE) 03/05/19 04:15 MPV 7.4 fL (7.4-11.0) 03/05/19 04:15 Neut % (Auto) 75.5 % (42.0-75.0) H 03/05/19 04:15 Lymph % (Auto) 12.8 % (21.0-51.0) L 03/05/19 04:15 [place] % (Auto) 8.5 % (0.0-13.0) 03/05/19 04:15 Eos % (Auto) 2.5 % (0.9-2.9) 03/05/19 04:15 Baso % (Auto) 0.7 % (0.2-1.0) 03/05/19 04:15 Neut # (Auto) 10.5 x10^3/uL (2.2-4.8) H 03/05/19 04:15 Lymph # (Auto) 1.8 X10^3/uL (1.3-2.9) 03/05/19 04:15 [place] # (Auto) 1.2 x10^3/uL (0.3-0.8) H 03/05/19 04:15 Eos # (Auto) 0.3 x10^3/uL (0.0-0.2) H 03/05/19 04:15 Baso # (Auto) 0.1 X10^3/uL (0.0-0.1) 03/05/19 04:15 Absolute Nucleated RBC 0.0 /100WBC 03/05/19 04:15 Plt Morphology Comment Normal (NORMAL) 03/05/19 04:15 RBC Morphology Abnormal (NORMAL) A 03/05/19 04:15 Hypochromasia 1+ A 02/28/19 05:33 Anisocytosis Slight A 03/05/19 04:15 Sodium 141 mmol/L (136-145) 03/05/19 04:15 Corrected Sodium 143 mmol/L (136-145) 03/05/19 04:15 Potassium 4.4 mmol/L (3.5-5.1) 03/05/19 04:15 Chloride 103 mmol/L (98-107) 03/05/19 04:15 Carbon Dioxide 32.1 mmol/L (21-32) H 03/05/19 04:15 BUN 5 mg/dL (7-18) L 03/05/19 04:15 Creatinine 0.98 mg/dL (0.55-1.02) 03/05/19 04:15 Est GFR (MDRD) Af Amer > 60 (>60) 03/05/19 04:15 Est GFR (MDRD) Non-Af > 60 (>60) 03/05/19 04:15 Glucose 198 mg/dL (65-99) H 03/05/19 04:15 POC Glucose (mg/dL) 266 mg/dL (65-99) H 03/05/19 16:23 Calcium 9.1 mg/dL (8.5-10.1) 03/05/19 04:15 Corrected Calcium 10.5 mg/dL (8.5-10.1) H 03/05/19 04:15 Magnesium 2.1 mg/dL (1.7-2.9) 03/04/19 04:21 Iron 38 ug/dL (50-175) L 02/26/19 05:05 Transferrin 132 mg/dL (202-364) L 02/26/19 05:05 Ferritin 213 ng/mL (8-252) 02/26/19 05:05 Total Bilirubin 0.20 mg/dL (0.2-1.0) 03/05/19 04:15 AST 10 Units/L (15-37) L 03/05/19 04:15 ALT 9 Units/L (12-78) L 03/05/19 04:15 Alkaline Phosphatase 153 Units/L (46-116) H 03/05/19 04:15 Total Protein 7.6 g/dL (6.4-8.2) 03/05/19 04:15 Albumin 2.2 g/dL (3.4-5.0) L 03/05/19 04:15 Globulin 5.4 g/dL (2.5-4.5) H 03/05/19 04:15 Albumin/Globulin Ratio 0.4 Ratio (1.1-2.1) L 03/05/19 04:15 Vitamin B12 918 pg/mL (193-986) 02/26/19 05:05 Folate 5.9 ng/mL (>8.6) L 02/26/19 05:05 Specimen Type Random urine 02/24/19 07:57 Urine Color Yellow (YELLOW) 02/24/19 07:57 Urine Appearance Hazy (CLEAR) 02/24/19 07:57 Urine pH 6.0 (5.0 - 8.0) 02/24/19 07:57 Ur Specific [place] 1.010 (1.000-1.030) 02/24/19 07:57 Urine Protein 2+ (NEGATIVE) 02/24/19 07:57 Urine Glucose (UA) 4+ (NEGATIVE) 02/24/19 07:57 Urine Ketones 3+ (NEGATIVE) 02/24/19 07:57 Urine Occult Blood 5+ (NEGATIVE) 02/24/19 07:57 Urine Nitrite Negative (NEGATIVE) 02/24/19 07:57 Urine Bilirubin Negative (NEGATIVE) 02/24/19 07:57 Urine Urobilinogen Normal (NORMAL) 02/24/19 07:57 Ur Leukocyte Esterase 3+ (NEGATIVE) 02/24/19 07:57 Urine RBC 10-20 /HPF (NONE SEEN) 02/24/19 07:57 Urine WBC Tntc /HPF (NONE SEEN) 02/24/19 07:57 Ur Squamous Epith Cells Moderate /HPF (NEGATIVE) 02/24/19 07:57 Urine Bacteria Trace /HPF (NEGATIVE) 02/24/19 07:57 Ur Culture Indicated? No/not indicated 02/24/19 07:57 Vancomycin Trough 14.2 ug/mL (15-20) L 03/04/19 13:52 Blood Type A POSITIVE 02/26/19 12:39 Antibody Screen Negative 02/26/19 12:39 Crossmatch See Detail 02/26/19 12:39 - Plan (1) Abdominal wall abscess at site of surgical wound Status: Acute Plan: IV ATBX, WOUND CARE, PAIN CONTROL. DR AQUINO CONSULTING. CUTLURES PENDING. AM LABS (2) Abdominal pain Status: Acute Plan: AM LABS. CBC CMP BC, UA UC. NPO FOR PROCEDURE. IV ATBX THERAPY, IV HYDRATION (3) Fever Status: Acute (4) Diabetes Status: Chronic (5) Anemia Status: Acute Plan: S/P TRANSFUSE RBC, IRON INFUSION
[2019-03-05] MEDS: COLACE CAP 100 MG PO SCH (20:16)
[2019-03-05] MEDS: MIRALAX POWDER (1 DOSE 17 G) PO SCH (20:17)
[2019-03-05] MEDS: ULTRAM PO PRN (20:21)
[2019-03-05] MEDS: SNACK - Diabetic Appropriate PO SCH (20:22)
[2019-03-05 22:09] LABS: CREATININE 0.98 mg/dL (0.55-1.02)
[2019-03-06 05:23] LABS: BASOPHILS # (AUTO) 0.1 X10^3/uL (0.0-0.1); BASOPHILS % (AUTO) 0.5 % (0.2-1.0); EOSINOPHILS # (AUTO) 0.4 x10^3/uL (0.0-0.2); EOSINOPHILS % (AUTO) 2.9 % (0.9-2.9); HEMATOCRIT 31.2 % (36.0-47.0); HEMOGLOBIN 9.8 g/dL (12.0-16.0); LYMPHOCYTES # (AUTO) 2.1 X10^3/uL (1.3-2.9); LYMPHOCYTES % (AUTO) 14.7 % (21.0-51.0); MEAN CORPUSCULAR HGB CONC 31.5 g/dL (33.0-35.0); MEAN CORPUSCULAR VOLUME 85.8 fL (80.0-100.0); MEAN PLATELET VOLUME 7.4 fL (7.4-11.0); MONOCYTES # (AUTO) 1.1 x10^3/uL (0.3-0.8); MONOCYTES % (AUTO) 7.9 % (0.0-13.0); NEUTROPHILS # (AUTO) 10.3 x10^3/uL (2.2-4.8); PLATELET COUNT 428 X10^3/uL (150.0-450.0); RED BLOOD COUNT 3.63 X10^6/uL (3.5-5.4); RED CELL DISTRIBUTION WIDTH 17.9 % (11.6-16.5)
[2019-03-06 05:24] LABS: ALANINE AMINOTRANSFERASE 9 Units/L (12-78); ALBUMIN 2.1 g/dL (3.4-5.0); ALKALINE PHOSPHATASE 135 Units/L (46-116); ASPARTATE AMINO TRANSFERASE 7 Units/L (15-37); BLOOD UREA NITROGEN 4 mg/dL (7-18); CALCIUM 9.2 mg/dL (8.5-10.1); CARBON DIOXIDE 31.6 mmol/L (21-32); CHLORIDE 103 mmol/L (98-107); COR CA(FOR HYPOALB) 10.7 mg/dL (8.5-10.1); COR NA(FOR HYPERGLY) 143 mmol/L (136-145); CREATININE 0.84 mg/dL (0.55-1.02); SODIUM 141 mmol/L (136-145); TOTAL PROTEIN 7.4 g/dL (6.4-8.2); eGFR NON BLACK RACES > 60 (>60)
[2019-03-06] MEDS: ZOSYN VIAL 4.5 GRAMS 4.5 G in NS 100 ML IV + SPIKE MINIBAG* 100 ML IV SCH (05:31)
[2019-03-06 05:43] LABS: ANISOCYTOSIS SLIGHT; PLATELET MORPHOLOGY COMMENT NORMAL (NORMAL)
[2019-03-06] MEDS: HumuLIN R SUBCUT PRN ×2 (05:45→11:42)
[2019-03-06] MEDS ORDERED: PHARMACY COMMENT IV NR (09:00)
[2019-03-06] MEDS: DIFLUCAN PO SCH (09:19)
[2019-03-06] MEDS: NS 500 ML IV 500 ML IV SCH ×2 (09:19→11:19)
[2019-03-06] MEDS: HEMOCYTE-PLUS PO SCH (09:19)
[2019-03-06] MEDS: LANTUS SC SCH (09:20)
[2019-03-06] MEDS: PEPCID 20 MG IV PREMIX* 20 MG/50 ML BAG IV SCH (09:20)
[2019-03-06] MEDS: ZOLOFT PO SCH (09:21)
[2019-03-06] MEDS: MORPHINE SULFATE INJ 2 MG INJ IVP PRN (11:13)
[2019-03-06 11:57] VITALS: BP 108/69
== END 2019-03-06 13:25 | disposition home or self-care (01) | DRG 603 ==
LOC: MED/SURG 12:19
PROVIDERS: ADMIT Internal Medicine; ATTEND Internal Medicine
DX: D64.89 Other specified anemias; K61.1 Rectal abscess; R50.9 Fever, unspecified; L02.211 Cutaneous abscess of abdominal wall; R10.9 Unspecified abdominal pain; O86.00 Infection of obstetric surgical wound, unspecified; E11.9 Type 2 diabetes mellitus without complications; N71.0 Acute inflammatory disease of uterus; B96.89 Other specified bacterial agents as the cause of diseases classified elsewhere
CPT/HCPCS: 36415; 36430; 71010; 71020; 71045; 71046; 74177; 80053; 80202; 81001; 82565; 82607; 82728; 82746; 83540; 83735; 84466; 85014; 85018; 85025; 86850; 86900; 86901; 86922; 87040; 87070; 87075; 87077; 87086; 87205; A4222; J3490; P9016; S0028; S0030; J1200; J1750; J1815; J1885; J1956; J2250; J2270; J2405; J2543; J2704; J3010; J3370; J3475; J7040; J7050; J7060

== ENCOUNTER 2021-02-26 15:55 | Inpatient (IN) ==
[2021-02-26 16:07] VITALS: BMI 24.7
[2021-02-26] MEDS ORDERED: NS 1000 ML 1,000 ML IV STA ×2 (16:43→17:35)
--- NOTE | 2021-02-26 16:43 | DR.EXTPAIN ---
HPI Time seen Time Seen by Provider: 02/26/21 16:31 PCP Primary Care Physician: MEG HPI Comment HPI Comment: PATIENT WITH A HISTORY OF MULTIPLE CUTANEOUS ABSCESSES, COMPLAINS OF A RIGHT LABIAL SWELLING, PAIN WITH DRAINAGE OVER 1 WEEK. HAS SEVERE PAIN D ISCOMFORT. DENIES FEVER, NAUSEA, EMESIS OR URINARY SYMPTOMS. Complaint/Symptoms Chief Complaint Doctor Comments: RIGHT LABIAL ABSCESS Chief Complaint:: PT C/O IRRITATION AND BUMP ONTO RIGHT LABIA. PT STATES THAT IT HAS WORSENED OVER PAST WEEK AND HAS BEEN DRAINING INTERMITTENTLY. PT C/O PAIN TO SITE RATED 8/10 COVID-19 Coronavirus risk:travel/contact w/high risk person: No Has patient experienced Coronavirus symptoms: No Nurses notes reviewed Nurses Notes Review: Yes Source History Provided: Patient Mode of arrival Mode of Arrival: Ambulatory Timing Onset of Chief Complaint: 02/26/21 Context History of: None Associated signs and symptoms Associated Signs and Symptoms: Pain and Swelling (DRAINAGE) Other history Other History: HISTORY OF MULTIPLE CUTANEOUS ABSCESSES PMH PMH Past Medical History: Yes Past Medical History: Diabetes Past Surgical History: Yes Surgical History: Past Surgical History Comment: TUBAL LIGATION, MULTIPLE ABCESSES DRAINED Family History History of Family Medical Conditions: Yes Family Medical History: Diabetes Mellitus and Hypertension Social History Does patient currently use any type of tobacco product: No Have you used tobacco products in the last 12 months: No Type of Tobacco Use: None Does any household member use tobacco: No Alcohol Use: None Do you use any recreational Drugs:: No Lives With: Family Lives Where: Home Travel Risk Coronavirus risk:travel/contact w/high risk person: No Has patient experienced Coronavirus symptoms: No Infectious screening In the last 2 months have you had wt loss of >10#?: NO Have you had fever, night sweats or hemotysis?: No Have you traveled outside the country in the last 6 months?: No Isolation: Standard ROS Review of Systems Constitutional: No Symptoms Reported Eyes: No Symptoms Reported ENTM: No Symptoms Reported Respiratoy: No Symptoms Reported Cardiovascular: No Symptoms Reported Gastrointestinal/Abdominal: No Symptoms Reported Genitourinary: No Symptoms Reported Neurological: No Symptoms Reported Musculoskeletal: No Symptoms Reported Integumentary: Lesions (RIGHT LABIAL SWELLING, PAIN, DRAINAGE) Hematologic/Lymphatic: No Symptoms Reported Endocrine: No Symptoms Reported Psychiatric: No Symptoms Reported All Other Systems: Reviewed and Negative PE Vital Signs Vitals: Temperature 98.0 F Pulse Rate 111 Respiratory Rate 18 Blood Pressure [Left Arm] 108/69 Blood Pressure 123/85 O2 Sat by Pulse Oximetry 99 General Limitations: No Limitations General Appearance: Alert and In No Apparent Distress Head Head Exam: Normal Inspection Eyes Eye exam: Normal Appearance ENT ENT Exam: Normal Exam Neck Neck Exam: Normal Inspection Chest Chest Inspection: Normal Inspection Respiratory Respiratory Exam: Normal Lung Sounds Bilat Respiratory Exam: Bilateral: Clear to Auscultation Cardiovascular Cardiovascular Exam: Regular Rate, Normal Rhythm and Tachycardia Abdominal Exam Abdominal Exam: Normal Inspection, Normal Bowel Sounds and Soft Extremities Extremities Exam: Normal Inspection Lower Extremities Neurovascular/Tendon Exam: Normal Capillary Refill Back Back Exam: Normal Inspection Neurological Neurological Exam: Alert, Oriented X3 and CN II-XII Intact Psychiatric Psychiatric Exam: Normal Affect and Normal Mood Skin Skin Exam: Warm, Dry, Intact and Normal Color Distribution: Genitals (EXAM WITH NURSE IN ATTENDANT, EXTERNAL GENITALIA, MODERATE SWELLING, TENDERNESS SUPERIOR ASPECT OF LABIA MAJORA ADJACENT OF MON[place]BIS LATERAL ASPECT, MARKED TENDER, MODERATE TENDERNESS, NO DRAINAGE) Description: Size (4CM X 4CM AREA TENDERNESS), Swelling and Indurated MDM Differential Diagnosis Differential Diagnosis: Other (RIGHT LABIA ABSCESS, [place] ABSCESS, CELLULITIS) COURSE Treatment Treatment: PLACED ON SEPSIS PROTOCOL, IV NORMAL SALINE 63KG/30ML, 2 LITERS NORMAL SALINE OVER 2.5 HOURS, AFTER 2 SETS OF BLOOD CULTURES VANCOMYCIN 1GM GIVEN, ZOFRAN 4MG, MORPHINE SULFATE 4MG IV, FOR GLUCOSE 609 ADMINISTERED REGULAR INSULIN 10 UNITS Consultation Call Returned: 18:25 Consultation Comments: DISCUSSED FINDINGS WITH DR LOPEZ FOR ADMIT INPATIENT ROR Labs Reviewed Result Diagrams: 02/26/21 16:40 02/26/21 16:40 Laboratory: WBC 6.0 X10^3/uL (3.6-10.0) 02/26/21 16:40 RBC 4.49 X10^6/uL (3.5-5.4) 02/26/21 16:40 Hgb 12.9 g/dL (12.0-16.0) 02/26/21 16:40 Hct 39.4 % (36.0-47.0) 02/26/21 16:40 MCV 87.8 fL (80.0-100.0) 02/26/21 16:40 MCH 28.7 pg (27.0-34.0) 02/26/21 16:40 MCHC 32.7 g/dL (33.0-35.0) L 02/26/21 16:40 RDW 12.2 % (11.6-16.5) 02/26/21 16:40 Plt Count 270 X10^3/uL (150.0-450.0) 02/26/21 16:40 MPV 9.2 fL (7.4-11.0) 02/26/21 16:40 Neut % (Auto) 58.4 % (42.0-75.0) 02/26/21 16:40 Lymph % (Auto) 32.7 % (21.0-51.0) 02/26/21 16:40 [place] % (Auto) 7.9 % (0.0-13.0) 02/26/21 16:40 Eos % (Auto) 0.7 % (0.9-2.9) L 02/26/21 16:40 Baso % (Auto) 0.3 % (0.2-1.0) 02/26/21 16:40 Neut # (Auto) 3.5 x10^3/uL (2.2-4.8) 02/26/21 16:40 Lymph # (Auto) 1.9 X10^3/uL (1.3-2.9) 02/26/21 16:40 [place] # (Auto) 0.5 x10^3/uL (0.3-0.8) 02/26/21 16:40 Eos # (Auto) 0.0 x10^3/uL (0.0-0.2) 02/26/21 16:40 Baso # (Auto) 0.0 X10^3/uL (0.0-0.1) 02/26/21 16:40 Absolute Nucleated RBC 0.1 /100WBC 02/26/21 16:40 Sample Site Left brachial 02/26/21 17:45 ABG pH 7.480 (7.35-7.45) H 02/26/21 17:45 ABG pCO2 44.0 mmHg (35.0-45.0) 02/26/21 17:45 ABG pO2 86.0 mmHg (80.0-100.0) 02/26/21 17:45 ABG HCO3 32.8 mmol/L (22-26) H* 02/26/21 17:45 ABG O2 Saturation 97.0 % (90-100) 02/26/21 17:45 ABG Base Excess 8.3 mmol/L (-2.0-2.0) H 02/26/21 17:45 [place] Test Na 02/26/21 17:45 A-a Gradient 9.0 mmHg 02/26/21 17:45 FiO2 21.0 02/26/21 17:45 Blood Gas Comments Jessie well aw 02/26/21 17:45 Sodium 134 mmol/L (136-145) L 02/26/21 16:40 Corrected Sodium 146 mmol/L (136-145) H 02/26/21 16:40 Potassium 4.1 mmol/L (3.5-5.1) 02/26/21 16:40 Chloride 95 mmol/L (98-107) L 02/26/21 16:40 Carbon Dioxide 31.1 mmol/L (21-32) 02/26/21 16:40 BUN 7 mg/dL (7-18) 02/26/21 16:40 Creatinine 0.89 mg/dL (0.55-1.02) 02/26/21 16:40 Est GFR (MDRD) Af Amer > 60 (>60) 02/26/21 16:40 Est GFR (MDRD) Non-Af > 60 (>60) 02/26/21 16:40 Glucose 609 mg/dL (65-99) H* 02/26/21 16:40 Lactic Acid 2.1 mmol/L (0.4-2.0) H 02/26/21 16:40 Calcium 8.6 mg/dL (8.5-10.1) 02/26/21 16:40 Corrected Calcium 9.5 mg/dL (8.5-10.1) 02/26/21 16:40 Total Bilirubin 0.20 mg/dL (0.2-1.0) 02/26/21 16:40 AST 13 Units/L (15-37) L 02/26/21 16:40 ALT 17 Units/L (12-78) 02/26/21 16:40 Alkaline Phosphatase 140 Units/L (46-116) H 02/26/21 16:40 Total Protein 7.5 g/dL (6.4-8.2) 02/26/21 16:40 Albumin 2.9 g/dL (3.4-5.0) L 02/26/21 16:40 Globulin 4.6 g/dL (2.5-4.5) H 02/26/21 16:40 Albumin/Globulin Ratio 0.6 Ratio (1.1-2.1) L 02/26/21 16:40 Acetone, Semi-Quant Negative (NEGATIVE) 02/26/21 16:40 EKG [place]: Normal Rhythm: NSR Block: None Hypertrophy: None ST: Normal Opioid Opioid Risk Tool Age (Aydin box if 16-45): Yes History of Preadolescent Sexual Abuse: No Total: 1 Total Score Risk Category: Low Risk Copyright: Anant YOST predicting aberrant behaviors Diagnosis Discharge Problem: Acute hyperglycemia, Cellulitis of labia majora
[2021-02-26] MEDS ORDERED: VANCOMYCIN IV *PREMIX 1 G/200 ML BAG 1 G/200 ML PIGGYBACK IV ONE ×2 (16:44→16:48)
[2021-02-26] MEDS ORDERED: NS 1000 ML 1,000 ML ONE ×3 (16:48→20:57)
[2021-02-26] MEDS ORDERED: MORPHINE SULFATE INJ 4 MG IVP STA (16:50)
[2021-02-26] MEDS ORDERED: ZOFRAN INJ 4 MG VIAL IVP STA (16:50)
[2021-02-26] MEDS ORDERED: MORPHINE SULFATE INJ 4 MG ONE (16:55)
[2021-02-26] MEDS ORDERED: ZOFRAN INJ 4 MG VIAL ONE (16:56)
[2021-02-26 17:17] LABS: BASOPHILS % (AUTO) 0.3 % (0.2-1.0); EOSINOPHILS % (AUTO) 0.7 % (0.9-2.9); HEMATOCRIT 39.4 % (36.0-47.0); HEMOGLOBIN 12.9 g/dL (12.0-16.0); LYMPHOCYTES # (AUTO) 1.9 X10^3/uL (1.3-2.9); LYMPHOCYTES % (AUTO) 32.7 % (21.0-51.0); MEAN CORPUSCULAR HEMOGLOBIN 28.7 pg (27.0-34.0); MEAN CORPUSCULAR HGB CONC 32.7 g/dL (33.0-35.0); MEAN CORPUSCULAR VOLUME 87.8 fL (80.0-100.0); MEAN PLATELET VOLUME 9.2 fL (7.4-11.0); MONOCYTES # (AUTO) 0.5 x10^3/uL (0.3-0.8); MONOCYTES % (AUTO) 7.9 % (0.0-13.0); NEUTROPHILS # (AUTO) 3.5 x10^3/uL (2.2-4.8); NEUTROPHILS % (AUTO) 58.4 % (42.0-75.0); PLATELET COUNT 270 X10^3/uL (150.0-450.0); RED BLOOD COUNT 4.49 X10^6/uL (3.5-5.4); RED CELL DISTRIBUTION WIDTH 12.2 % (11.6-16.5)
[2021-02-26 17:28] LABS: ALANINE AMINOTRANSFERASE 17 Units/L (12-78); ALBUMIN 2.9 g/dL (3.4-5.0); ALKALINE PHOSPHATASE 140 Units/L (46-116); ASPARTATE AMINO TRANSFERASE 13 Units/L (15-37); BLOOD UREA NITROGEN 7 mg/dL (7-18); CALCIUM 8.6 mg/dL (8.5-10.1); CARBON DIOXIDE 31.1 mmol/L (21-32); CHLORIDE 95 mmol/L (98-107); COR CA(FOR HYPOALB) 9.5 mg/dL (8.5-10.1); CREATININE 0.89 mg/dL (0.55-1.02); SODIUM 134 mmol/L (136-145); TOTAL PROTEIN 7.5 g/dL (6.4-8.2); eGFR NON BLACK RACES > 60 (>60)
[2021-02-26 17:29] LABS: LACTIC ACID 2.1 mmol/L (0.4-2.0)
[2021-02-26 17:30] LABS: COR NA(FOR HYPERGLY) 146 mmol/L (136-145)
[2021-02-26] MEDS ORDERED: HumuLIN R IV STA (17:30)
[2021-02-26 17:31] LABS: SERUM ACETONE NEGATIVE (NEGATIVE)
[2021-02-26] MEDS ORDERED: HumuLIN R ONE ×2 (17:37→21:10)
[2021-02-26 17:51] LABS: ABG BASE EXCESS 8.3 mmol/L (-2.0-2.0); ABG HCO3 32.8 mmol/L (22-26)
[2021-02-26] MEDS ORDERED: TYLENOL 325 MG TAB PO PRN (18:49)
[2021-02-26] MEDS ORDERED: VANCOMYCIN IV *PREMIX 1 G/200 ML BAG 1 G/200 ML PIGGYBACK IV SCH (18:49)
[2021-02-26] MEDS ORDERED: PHARMACY CONSULT - VANCOMYCIN XX SCH (19:00)
[2021-02-26 19:28] LABS: BLOOD UREA NITROGEN 6 mg/dL (7-18); CALCIUM 7.9 mg/dL (8.5-10.1); CARBON DIOXIDE 29.3 mmol/L (21-32); CHLORIDE 102 mmol/L (98-107); COR NA(FOR HYPERGLY) 142 mmol/L (136-145); CREATININE 0.62 mg/dL (0.55-1.02); SODIUM 137 mmol/L (136-145); eGFR NON BLACK RACES > 60 (>60)
[2021-02-26] MEDS ORDERED: SNACK - Diabetic Appropriate PO SCH (20:00)
[2021-02-26] MEDS ORDERED: NORCO 5/325 MG TAB ONE (21:09)
[2021-02-26] MEDS: HumuLIN R SUBCUT PRN (21:15)
[2021-02-26] MEDS: NORCO 5/325 MG TAB PO PRN (21:17)
[2021-02-26] MEDS: NS 1000 ML 1,000 ML IV SCH (21:18)
[2021-02-26] MEDS: SNACK - Diabetic Appropriate PO SCH (21:18)
[2021-02-26 22:13] LABS: BILIRUBIN,URINE NEGATIVE (NEGATIVE); BLOOD/HEMOGLOBIN,URINE 2+ (NEGATIVE); GLUCOSE, URINE 4+ (NEGATIVE); KETONES,URINE 2+ (NEGATIVE); LEUKOCYTE ESTERASE ,URINE 3+ (NEGATIVE); NITRITES,URINE POSITIVE (NEGATIVE); PROTEIN,URINE 1+ (NEGATIVE); UROBILINOGEN,URINE NORMAL (NORMAL)
[2021-02-26 22:23] LABS: APPEARANCE,URINE CLOUDY (CLEAR); BACTERIA,URINE 2+ /HPF (NEGATIVE); COLOR,URINE YELLOW (YELLOW); SQUAMOUS EPITHELIAL CELL,UR RARE /HPF (NEGATIVE)
[2021-02-27] MEDS ORDERED: VANCOMYCIN IV *PREMIX 1 G/200 ML BAG 1 G/200 ML PIGGYBACK IV ONE ×2 (04:30→14:03)
[2021-02-27] MEDS ORDERED: VANCOMYCIN IV *PREMIX 1 G/200 ML BAG 1 G/200 ML PIGGYBACK IV SCH (05:00)
[2021-02-27] MEDS ORDERED: HumuLIN R ONE ×2 (06:35→11:53)
[2021-02-27] MEDS: HumuLIN R SUBCUT PRN ×4 (06:38→21:08)
--- NOTE | 2021-02-27 11:17 | RAD ---
HISTORYCOVID+STUDYCHEST x-ray, 1 VIEWCOMPARISONX-ray 03/05/2019FINDINGSThe trachea is midline. The cardiac silhouette is unremarkable .Likely very faint infiltrates are seen in the periphery of the mid to lower lungs. This may represent mild COVID-19 pneumonia. No pneumothorax or pleural effusion is seen.No acute bony abnormality is seen.IMPRESSIONPossible mild changes of COVID-19 pneumonia.Electronically signed by: Ariel Chicas (Feb 27, 2021 11:15:42)
[2021-02-27] MEDS ORDERED: REMDESIVIR 200 MG in NS 250 ML IV 250 ML IV ONE (13:33)
--- NOTE | 2021-02-27 13:37 | DR.H&P ---
H&P - History & Physical for Day of: H&P Date: 02/27/21 - Chief Complaint Chief Complaint: INFECTED CYST TO VAGINA - History of Present Illness History of Present Illness: PT IS 35 BF, ER ADMISSION WITH RIGHT LABIAL ABSCESS WITH LOCALIZED CELLULITIS. PT CO TAKEN ANTIBIOTICS WITHOUT IMPROVEMENT. PT HAS PMH OF DM, NON COMPLIANCE. PT WAS COVID 19 POSITIVE WITH CO MILD COUGH, NO SOB. PT CO DIARRHEA FOR SEVERAL WEEKS. - Past Medical History Past Medical History: Diabetes - Past Surgical History Surgical History: - Family History Family Medical History: Diabetes Mellitus, Hypertension - Social History Does patient currently use any type of tobacco product: No Have you used tobacco products in the last 12 months: No Type of Tobacco Use: None Does any household member use tobacco: No Alcohol Use: None Drug Use: None - Medications Home Medications: No Known Drug Allergies Allergy (Verified 02/04/19 17:17) CONTINUE taking the following medications metformin 1,000 mg PO BID 02/26/21 [History] - Review of Systems Constitutional: Malaise Eyes: No Symptoms Reported ENT: No Symptoms Reported Respiratory: Cough (MILD). denies: Shortness of Breath, SOB with Excertion Cardiovascular: denies: Chest Pain Gastrointestinal: Diarrhea Genitourinary: No Symptoms Reported Musculoskeletal: No Symptoms Reported Skin: Wound Neurological: No Symptoms Reported - Physical Exam Vital Signs: Temperature 98.0 F Pulse Rate [Left Radial] 72 Pulse Rate 111 Respiratory Rate 16 Blood Pressure [Left Arm] 105/62 Blood Pressure 123/85 O2 Sat by Pulse Oximetry 98 Oriented: Normal Eyes: Normal Ear: Normal Nose: Normal Throat: Normal Respiratory: RLL Diminished, LLL Diminished Cardiovascular: Normal : Normal Auscultation: Bowel Sounds: Normal Palpation: Normal Tenderness: RLQ Skin: Red, Tender, Hot, Wound (DIFFUSE RIGHT LABIA EDEMA WITH SEVERE TENDERNESS AND ERYTHEMA TO SURROUNDING TISSURE ADVANCED TO MONS) Musculoskeletal: Normal Psychiatric: Normal Mood Description: Calm Speech Pattern: Clear, Appropriate - Assessment/Plan (1) Abscess of genital labia Status: Acute Plan: ADMIT, BLOOD CULTURES ON ADMISSION. REPEAT LACTIC ACID, IV HDYRATION PAIN CONTROL. BS CONTROL, CONSULT SURGEON FOR I&D. IV VANCOMYCIN, VERIFY HOME MEDICATION. SERUM ACETONE, CXR AND ABG DUE TO COVID 19, ISOLATION PRECAUTIONS. STOOL STUDIES, REMDESIVIR (2) COVID-19 Status: Acute (3) Diabetes mellitus type 2, uncontrolled, without complications Status: Chronic (4) Acute hyperglycemia Status: Acute - Allergies Allergies/Adverse Reactions: Allergies Allergy/AdvReac Type Severity Reaction Status Date / Time No Known Drug Allergies Allergy Verified 02/04/19 17:17
[2021-02-27] MEDS: VANCOMYCIN IV *PREMIX 1 G/200 ML BAG 1 G/200 ML PIGGYBACK IV SCH ×2 (14:05→22:00)
[2021-02-27] MEDS: NS 1000 ML 1,000 ML IV SCH ×2 (15:07→18:19)
[2021-02-27] MEDS: NORCO 5/325 MG TAB PO PRN (15:41)
[2021-02-27] MEDS ORDERED: SNACK - Diabetic Appropriate PO SCH (20:00)
[2021-02-27] MEDS: SNACK - Diabetic Appropriate PO SCH (20:36)
[2021-02-27] MEDS: LANTUS SC SCH (21:10)
[2021-02-28] MEDS: NS 1000 ML 1,000 ML IV SCH ×2 (00:11→09:53)
[2021-02-28] MEDS ORDERED: PHARMACY COMMENT IV ONE ×2 (05:30→21:30)
[2021-02-28] MEDS: HumuLIN R SUBCUT PRN ×4 (06:15→21:35)
[2021-02-28 06:48] LABS: CREATININE 0.52 mg/dL (0.55-1.02); VANCOMYCIN,TROUGH 7.9 ug/mL (15-20)
[2021-02-28] MEDS: VANCOMYCIN IV *PREMIX 1 G/200 ML BAG 1 G/200 ML PIGGYBACK IV SCH ×3 (07:48→21:26)
[2021-02-28] MEDS ORDERED: REMDESIVIR 100 MG in NS 250 ML IV 250 ML IV SCH (09:00)
[2021-02-28 10:23] LABS: BASOPHILS % (AUTO) 0.4 % (0.2-1.0); EOSINOPHILS # (AUTO) 0.1 x10^3/uL (0.0-0.2); EOSINOPHILS % (AUTO) 1.2 % (0.9-2.9); HEMATOCRIT 33.4 % (36.0-47.0); HEMOGLOBIN 11.1 g/dL (12.0-16.0); LYMPHOCYTES # (AUTO) 2.2 X10^3/uL (1.3-2.9); LYMPHOCYTES % (AUTO) 36.2 % (21.0-51.0); MEAN CORPUSCULAR HGB CONC 33.1 g/dL (33.0-35.0); MEAN CORPUSCULAR VOLUME 87.6 fL (80.0-100.0); MEAN PLATELET VOLUME 9.1 fL (7.4-11.0); MONOCYTES # (AUTO) 0.5 x10^3/uL (0.3-0.8); MONOCYTES % (AUTO) 7.5 % (0.0-13.0); NEUTROPHILS # (AUTO) 3.3 x10^3/uL (2.2-4.8); NEUTROPHILS % (AUTO) 54.7 % (42.0-75.0); PLATELET COUNT 232 X10^3/uL (150.0-450.0); RED BLOOD COUNT 3.82 X10^6/uL (3.5-5.4); RED CELL DISTRIBUTION WIDTH 12.4 % (11.6-16.5); WHITE BLOOD COUNT 6.1 X10^3/uL (3.6-10.0)
[2021-02-28 10:35] LABS: ALANINE AMINOTRANSFERASE 13 Units/L (12-78); ALBUMIN 2.1 g/dL (3.4-5.0); ALKALINE PHOSPHATASE 100 Units/L (46-116); ASPARTATE AMINO TRANSFERASE 19 Units/L (15-37); BLOOD UREA NITROGEN 7 mg/dL (7-18); CALCIUM 8.1 mg/dL (8.5-10.1); CARBON DIOXIDE 26.4 mmol/L (21-32); CHLORIDE 109 mmol/L (98-107); COR CA(FOR HYPOALB) 9.6 mg/dL (8.5-10.1); COR NA(FOR HYPERGLY) 148 mmol/L (136-145); CREATININE 0.56 mg/dL (0.55-1.02); SODIUM 144 mmol/L (136-145); TOTAL PROTEIN 5.7 g/dL (6.4-8.2); eGFR NON BLACK RACES > 60 (>60)
[2021-02-28] MEDS: NORCO 5/325 MG TAB PO PRN ×2 (12:45→21:25)
[2021-02-28 15:06] LABS: CREATININE 0.69 mg/dL (0.55-1.02)
[2021-02-28 15:09] LABS: VANCOMYCIN,TROUGH 21.2 ug/mL (15-20)
[2021-02-28] MEDS: REMDESIVIR 100 MG in NS 250 ML IV 250 ML IV SCH (16:12)
[2021-02-28] MEDS ORDERED: ROBITUSSIN DM PO PRN (18:09)
[2021-02-28] MEDS: SNACK - Diabetic Appropriate PO SCH (20:00)
[2021-02-28] MEDS: LANTUS SC SCH (21:26)
--- NOTE | 2021-02-28 23:34 | RAD ---
EXAM: CHEST X-RAYHISTORY: Cough. COVID-19.TECHNIQUE: AP chest x-ray dated February 28, 2021 at 10:44 PM.COMPARISON: CXR dated February 27, 2021FINDINGS:The heart size and mediastinum are within normal limits. The lung tilley and costophrenic angles are clear. There is no acute parenchymal infiltrate, pleural effusion, or pneumothorax seen. The visualized bony structures are within normal limits.IMPRESSION:1. No evidence for acute cardiopulmonary disease seen.2. No significant interval change from the previous exam.Electronically signed by: Gabi Walden (Feb 28, 2021 23:32:34)
[2021-03-01] MEDS: NORCO 5/325 MG TAB PO PRN ×2 (01:00→21:30)
[2021-03-01] MEDS: NS 1000 ML 1,000 ML IV SCH ×3 (01:02→11:14)
[2021-03-01 06:16] LABS: BASOPHILS # (AUTO) 0.1 X10^3/uL (0.0-0.1); EOSINOPHILS # (AUTO) 0.1 x10^3/uL (0.0-0.2); EOSINOPHILS % (AUTO) 1.8 % (0.9-2.9); HEMATOCRIT 32.8 % (36.0-47.0); LYMPHOCYTES # (AUTO) 2.8 X10^3/uL (1.3-2.9); LYMPHOCYTES % (AUTO) 46.7 % (21.0-51.0); MEAN CORPUSCULAR HGB CONC 33.5 g/dL (33.0-35.0); MEAN CORPUSCULAR VOLUME 86.7 fL (80.0-100.0); MEAN PLATELET VOLUME 8.8 fL (7.4-11.0); MONOCYTES # (AUTO) 0.5 x10^3/uL (0.3-0.8); MONOCYTES % (AUTO) 9.1 % (0.0-13.0); NEUTROPHILS # (AUTO) 2.5 x10^3/uL (2.2-4.8); NEUTROPHILS % (AUTO) 41.4 % (42.0-75.0); PLATELET COUNT 260 X10^3/uL (150.0-450.0); RED BLOOD COUNT 3.79 X10^6/uL (3.5-5.4); RED CELL DISTRIBUTION WIDTH 12.7 % (11.6-16.5)
[2021-03-01] MEDS: HumuLIN R SUBCUT PRN ×3 (06:16→21:00)
[2021-03-01 06:27] LABS: CREATININE 0.49 mg/dL (0.55-1.02); VANCOMYCIN,TROUGH 8.4 ug/mL (15-20)
[2021-03-01 06:31] LABS: ALANINE AMINOTRANSFERASE 13 Units/L (12-78); ALBUMIN 1.9 g/dL (3.4-5.0); ALKALINE PHOSPHATASE 98 Units/L (46-116); ASPARTATE AMINO TRANSFERASE 15 Units/L (15-37); BLOOD UREA NITROGEN 7 mg/dL (7-18); CALCIUM 7.7 mg/dL (8.5-10.1); CARBON DIOXIDE 27.3 mmol/L (21-32); CHLORIDE 109 mmol/L (98-107); COR CA(FOR HYPOALB) 9.4 mg/dL (8.5-10.1); COR NA(FOR HYPERGLY) 146 mmol/L (136-145); SODIUM 142 mmol/L (136-145); TOTAL PROTEIN 5.5 g/dL (6.4-8.2); eGFR NON BLACK RACES > 60 (>60)
[2021-03-01] MEDS: VANCOMYCIN IV *PREMIX 1.25 G/250 ML BAG 1.25 G/250 ML PIGGYBACK IV SCH ×3 (07:43→21:00)
[2021-03-01] MEDS: K-DUR TAB 20 MEQ PO PRN (08:03)
[2021-03-01] MEDS: PROTONIX TAB 40 MG PO SCH (08:56)
[2021-03-01] MEDS: ZOFRAN INJ 4 MG VIAL IVP PRN ×2 (09:44→21:31)
--- NOTE | 2021-03-01 15:49 | PCM.PROG ---
Progress Note - Progress Note for Day of Date of Exam: 03/01/21 - Subjective Subjective: This 35-year-old female presented to the emergency room with pain and swelling of the right side of the genital area involving the pubic area, right groin, and labia. Patient was having purulent drainage and she claims that the swelling is better, but she is still having significant pain and swelling of area. She was taking antibiotics without significant improvement. Patient is diabetic and had a previous history of several skin abscesses positive for MRSA. Pt was covid 19+ on admission without resp distress. Pt is currently on IV Vanco and rocephin for UTI. Pt recieving Remdesivir for treatment of covid19. Pt deines any chest pain or sob this am, denies any diarrhea or cough this morning. - Past Medical Family Social History Past Med/Fam/Surg Hx: No changes since H&P Allergies: Allergies No Known Drug Allergies Allergy (Verified 02/04/19 17:17) - Review of Systems ROS: No change since H&P - Vital Signs and I&O's Vital Signs: Temperature 98.8 F Pulse Rate [Left Radial] 92 Pulse Rate 111 Respiratory Rate 16 Blood Pressure [Left Arm] 118/78 Blood Pressure 123/85 O2 Sat by Pulse Oximetry 100 Intake and Output: Intake & Output 02/27/21 02/28/21 03/01/21 03/02/21 11:59 11:59 11:59 11:59 Intake Total 1780 / 1780 3278 / 3278 4026 / 4026 1298 / 1298 Balance 1780 / 1780 3278 / 3278 4026 / 4026 1298 / 1298 - Physical Exam Oriented: Normal Eyes: Normal Ear: Normal Nose: Normal Throat: Normal Cardiovascular: Normal : Normal Auscultation: Bowel Sounds: Normal Tenderness: RLQ Skin: Red, Tender, Hot, Wound (DIFFUSE RIGHT LABIA EDEMA WITH SEVERE TENDERNESS AND ERYTHEMA TO SURROUNDING TISSURE ADVANCED TO MONS) Musculoskeletal: Normal Psychiatric: Normal Mood Description: Calm Speech Pattern: Clear, Appropriate - Laboratory and Diagnostics Result Diagrams: 03/01/21 05:37 03/01/21 05:37 Labs: 02/26/21 16:56 Blood Blood Culture - Preliminary 02/26/21 16:40 Blood Blood Culture - Preliminary 02/26/21 22:05 Urine,Clean Catch Urine Culture - Final Escherichia Coli Laboratory WBC 6.0 X10^3/uL (3.6-10.0) 03/01/21 05:37 RBC 3.79 X10^6/uL (3.5-5.4) 03/01/21 05:37 Hgb 11.0 g/dL (12.0-16.0) L 03/01/21 05:37 Hct 32.8 % (36.0-47.0) L 03/01/21 05:37 MCV 86.7 fL (80.0-100.0) 03/01/21 05:37 MCH 29.0 pg (27.0-34.0) 03/01/21 05:37 MCHC 33.5 g/dL (33.0-35.0) 03/01/21 05:37 RDW 12.7 % (11.6-16.5) 03/01/21 05:37 Plt Count 260 X10^3/uL (150.0-450.0) 03/01/21 05:37 MPV 8.8 fL (7.4-11.0) 03/01/21 05:37 Neut % (Auto) 41.4 % (42.0-75.0) L 03/01/21 05:37 Lymph % (Auto) 46.7 % (21.0-51.0) 03/01/21 05:37 [place] % (Auto) 9.1 % (0.0-13.0) 03/01/21 05:37 Eos % (Auto) 1.8 % (0.9-2.9) 03/01/21 05:37 Baso % (Auto) 1.0 % (0.2-1.0) 03/01/21 05:37 Neut # (Auto) 2.5 x10^3/uL (2.2-4.8) 03/01/21 05:37 Lymph # (Auto) 2.8 X10^3/uL (1.3-2.9) 03/01/21 05:37 [place] # (Auto) 0.5 x10^3/uL (0.3-0.8) 03/01/21 05:37 Eos # (Auto) 0.1 x10^3/uL (0.0-0.2) 03/01/21 05:37 Baso # (Auto) 0.1 X10^3/uL (0.0-0.1) 03/01/21 05:37 Absolute Nucleated RBC 0.0 /100WBC 03/01/21 05:37 ESR 36 MM/HOUR (0-20) H 02/27/21 13:51 Sample Site Left brachial 02/26/21 17:45 ABG pH 7.480 (7.35-7.45) H 02/26/21 17:45 ABG pCO2 44.0 mmHg (35.0-45.0) 02/26/21 17:45 ABG pO2 86.0 mmHg (80.0-100.0) 02/26/21 17:45 ABG HCO3 32.8 mmol/L (22-26) H* 02/26/21 17:45 ABG O2 Saturation 97.0 % (90-100) 02/26/21 17:45 ABG Base Excess 8.3 mmol/L (-2.0-2.0) H 02/26/21 17:45 Shaka Test Na 02/26/21 17:45 A-a Gradient 9.0 mmHg 02/26/21 17:45 FiO2 21.0 02/26/21 17:45 Blood Gas Comments Jessie well aw 02/26/21 17:45 Sodium 142 mmol/L (136-145) 03/01/21 05:37 Corrected Sodium 146 mmol/L (136-145) H 03/01/21 05:37 Potassium 3.3 mmol/L (3.5-5.1) L 03/01/21 05:37 Chloride 109 mmol/L (98-107) H 03/01/21 05:37 Carbon Dioxide 27.3 mmol/L (21-32) 03/01/21 05:37 BUN 7 mg/dL (7-18) 03/01/21 05:37 Creatinine 0.49 mg/dL (0.55-1.02) L 03/01/21 05:37 Creatinine 0.50 mg/dL (0.55-1.02) L 03/01/21 05:37 Est GFR (MDRD) Af Amer > 60 (>60) 03/01/21 05:37 Est GFR (MDRD) Non-Af > 60 (>60) 03/01/21 05:37 Glucose 272 mg/dL (65-99) H 03/01/21 05:37 POC Glucose (mg/dL) 203 mg/dL (65-99) H 03/01/21 11:53 Hemoglobin A1c > 16.0 % 02/27/21 13:51 Lactic Acid 0.8 mmol/L (0.4-2.0) 02/27/21 13:51 Calcium 7.7 mg/dL (8.5-10.1) L 03/01/21 05:37 Corrected Calcium 9.4 mg/dL (8.5-10.1) 03/01/21 05:37 Total Bilirubin 0.20 mg/dL (0.2-1.0) 03/01/21 05:37 AST 15 Units/L (15-37) 03/01/21 05:37 ALT 13 Units/L (12-78) 03/01/21 05:37 Alkaline Phosphatase 98 Units/L (46-116) 03/01/21 05:37 C-Reactive Protein 3.30 mg/L (0-3.0) H 02/27/21 13:51 Total Protein 5.5 g/dL (6.4-8.2) L 03/01/21 05:37 Albumin 1.9 g/dL (3.4-5.0) L 03/01/21 05:37 Globulin 3.6 g/dL (2.5-4.5) 03/01/21 05:37 Albumin/Globulin Ratio 0.5 Ratio (1.1-2.1) L 03/01/21 05:37 Specimen Type Clean catch urine 02/26/21 22:05 Urine Color Yellow (YELLOW) 02/26/21 22:05 Urine Appearance Cloudy (CLEAR) 02/26/21 22:05 Urine pH 6.0 (5.0 - 8.0) 02/26/21 22:05 Ur Specific [place] 1.010 (1.000-1.030) 02/26/21 22:05 Urine Protein 1+ (NEGATIVE) 02/26/21 22:05 Urine Glucose (UA) 4+ (NEGATIVE) 02/26/21 22:05 Urine Ketones 2+ (NEGATIVE) 02/26/21 22:05 Urine Occult Blood 2+ (NEGATIVE) 02/26/21 22:05 Urine Nitrite Positive (NEGATIVE) 02/26/21 22:05 Urine Bilirubin Negative (NEGATIVE) 02/26/21 22:05 Urine Urobilinogen Normal (NORMAL) 02/26/21 22:05 Ur Leukocyte Esterase 3+ (NEGATIVE) 02/26/21 22:05 Urine RBC 5-10 /HPF (0-3) A 02/26/21 22:05 Urine WBC Tntc /HPF (0-5) A 02/26/21 22:05 Ur Squamous Epith Cells Rare /HPF (NEGATIVE) 02/26/21 22:05 Urine Bacteria 2+ /HPF (NEGATIVE) 02/26/21 22:05 Ur Culture Indicated? Yes/culture set up 02/26/21 22:05 Stl C. diff Tox B Gene Negative (NEGATIVE) 02/28/21 09:45 Stl C. diff [id number] Presumptive negative (NEGATIVE) 02/28/21 09:45 Vancomycin Trough 8.4 ug/mL (15-20) L 03/01/21 05:37 Acetone, Semi-Quant Negative (NEGATIVE) 02/26/21 16:40 SARS CoV-2 RNA Rapid GAGAN Positive (NEGATIVE) A 02/26/21 19:30 - Plan (1) Abscess of genital labia Status: Acute Plan: BLOOD CULTURES ON ADMISSION. IV HDYRATION PAIN CONTROL. BS CONTROL, CONSULT SURGEON FOR I&D. IV VANCOMYCIN, VERIFY HOME MEDICATION. SERUM ACETONE, CXR AND ABG DUE TO COVID 19, ISOLATION PRECAUTIONS. STOOL STUDIES ORDERED ON ADMISSION, REMDESIVIR. DR AQUINO CONSULTING (2) COVID-19 Status: Acute (3) Diabetes mellitus type 2, uncontrolled, without complications Status: Chronic (4) Acute hyperglycemia Status: Acute
[2021-03-01] MEDS: REMDESIVIR 100 MG in NS 250 ML IV 250 ML IV SCH (16:57)
[2021-03-01] MEDS: SNACK - Diabetic Appropriate PO SCH (20:22)
[2021-03-01 20:41] LABS: MAGNESIUM 1.6 mg/dL (1.7-2.9)
[2021-03-01] MEDS ORDERED: KLOR-CON PO PRN (20:46)
[2021-03-01] MEDS ORDERED: MAGNESIUM SULFATE 1 GRAM/100 mL PREMIX 1 GM/100 ML BAG IV PRN (20:46)
[2021-03-01] MEDS ORDERED: K-DUR TAB 20 MEQ PO PRN (20:46)
[2021-03-01] MEDS ORDERED: MICRO K EXTEN CAP 10 MEQ PO PRN (20:46)
[2021-03-01] MEDS ORDERED: POTASSIUM CHL 40 MEQ/NS 0.45% 500 ML IV PRN (20:46)
[2021-03-01] MEDS ORDERED: POTASSIUM CHLORIDE LIQ 20 MEQ UDC PO PRN (20:46)
[2021-03-01] MEDS ORDERED: K-RIDER 10 MEQ/NS 100 ML 10 MEQ/100 ML BAG IV PRN (20:46)
[2021-03-01] MEDS ORDERED: POTASSIUM CHL 60 MEQ/NS 0.45% 500 ML IV PRN (20:46)
[2021-03-01] MEDS ORDERED: MAGNESIUM SULFATE 1 GRAM/100 mL PREMIX 1 G/100 ML BAG IV ONE (20:54)
[2021-03-01] MEDS: LANTUS SC SCH (21:00)
[2021-03-01] MEDS: MAGNESIUM SULFATE 1 GRAM/100 mL PREMIX 1 GM/100 ML BAG IV PRN (23:30)
[2021-03-02] MEDS: MAGNESIUM SULFATE 1 GRAM/100 mL PREMIX 1 GM/100 ML BAG IV PRN (00:30)
[2021-03-02] MEDS: NS 1000 ML 1,000 ML IV SCH ×2 (01:26→15:32)
[2021-03-02] MEDS: HumuLIN R SUBCUT PRN ×3 (06:23→16:42)
[2021-03-02 06:38] LABS: BASOPHILS % (AUTO) 0.2 % (0.2-1.0); EOSINOPHILS # (AUTO) 0.2 x10^3/uL (0.0-0.2); EOSINOPHILS % (AUTO) 2.4 % (0.9-2.9); HEMATOCRIT 31.7 % (36.0-47.0); HEMOGLOBIN 10.5 g/dL (12.0-16.0); LYMPHOCYTES # (AUTO) 2.6 X10^3/uL (1.3-2.9); LYMPHOCYTES % (AUTO) 40.5 % (21.0-51.0); MEAN CORPUSCULAR HGB CONC 33.1 g/dL (33.0-35.0); MEAN CORPUSCULAR VOLUME 87.6 fL (80.0-100.0); MEAN PLATELET VOLUME 8.2 fL (7.4-11.0); MONOCYTES # (AUTO) 0.6 x10^3/uL (0.3-0.8); MONOCYTES % (AUTO) 9.9 % (0.0-13.0); PLATELET COUNT 260 X10^3/uL (150.0-450.0); RED BLOOD COUNT 3.61 X10^6/uL (3.5-5.4); RED CELL DISTRIBUTION WIDTH 12.7 % (11.6-16.5); WHITE BLOOD COUNT 6.3 X10^3/uL (3.6-10.0)
[2021-03-02] MEDS: VANCOMYCIN IV *PREMIX 1.25 G/250 ML BAG 1.25 G/250 ML PIGGYBACK IV SCH ×3 (07:06→21:28)
[2021-03-02 07:08] LABS: ALANINE AMINOTRANSFERASE 17 Units/L (12-78); ALBUMIN 1.8 g/dL (3.4-5.0); ALKALINE PHOSPHATASE 85 Units/L (46-116); ASPARTATE AMINO TRANSFERASE 19 Units/L (15-37); BLOOD UREA NITROGEN 10 mg/dL (7-18); CALCIUM 7.6 mg/dL (8.5-10.1); CARBON DIOXIDE 25.5 mmol/L (21-32); CHLORIDE 112 mmol/L (98-107); COR CA(FOR HYPOALB) 9.4 mg/dL (8.5-10.1); COR NA(FOR HYPERGLY) 147 mmol/L (136-145); CREATININE 0.49 mg/dL (0.55-1.02); SODIUM 144 mmol/L (136-145); TOTAL PROTEIN 5.1 g/dL (6.4-8.2); eGFR NON BLACK RACES > 60 (>60)
[2021-03-02] MEDS: PROTONIX TAB 40 MG PO SCH (08:30)
[2021-03-02] MEDS: LOVENOX INJ 40 MG SYR SC SCH ×2 (08:40→09:46)
[2021-03-02] MEDS ORDERED: DILAUDID INJ IVP ONE (15:49)
[2021-03-02] MEDS ORDERED: VERSED IVP NR (15:52)
[2021-03-02] MEDS ORDERED: VERSED ONE (15:56)
[2021-03-02] MEDS ORDERED: DILAUDID INJ ONE (15:56)
[2021-03-02] MEDS ORDERED: XYLOCAINE 1 % (PLAIN) ONE (15:56)
[2021-03-02] MEDS: ROCEPHIN 1 GRAM IV PREMIX 1 G/50 ML IV.SOLN. IV SCH (16:33)
[2021-03-02] MEDS: REMDESIVIR 100 MG in NS 250 ML IV 250 ML IV SCH (16:33)
--- NOTE | 2021-03-02 17:13 | PCM.PROG ---
Progress Note - Progress Note for Day of Date of Exam: 03/02/21 - Subjective Subjective: This 35-year-old female presented to the emergency room with pain and swelling of the right side of the genital area involving the pubic area, right groin, and labia. Patient was having purulent drainage and she claims that the swelling is better, but she is still having significant pain and swelling of area. She was taking antibiotics without significant improvement. Patient is diabetic and had a previous history of several skin abscesses positive for MRSA. Pt was covid 19+ on admission without resp distress. Pt is currently on IV Vanco and rocephin for UTI. Pt recieving Remdesivir for treatment of covid19. Pt deines any chest pain or sob this am, denies any diarrhea or cough this morning. Dr Munguia consulting with plans for bedside I&D with culture to be obtained at that time - Past Medical Family Social History Past Med/Fam/Surg Hx: No changes since H&P Allergies: Allergies No Known Drug Allergies Allergy (Verified 02/04/19 17:17) - Review of Systems ROS: No change since H&P - Vital Signs and I&O's Vital Signs: Temperature 98.4 F Pulse Rate [Left Radial] 101 Pulse Rate 111 Respiratory Rate 16 Blood Pressure [Left Arm] 125/83 Blood Pressure 123/85 O2 Sat by Pulse Oximetry 99 Intake and Output: Intake & Output 02/28/21 03/01/21 03/02/21 03/03/21 11:59 11:59 11:59 11:59 Intake Total 3278 / 3278 4026 / 4026 4126 / 4126 2019 Balance 3278 / 3278 4026 / 4026 4126 / 4126 2019 - Physical Exam Oriented: Normal Eyes: Normal Ear: Normal Nose: Normal Throat: Normal Cardiovascular: Normal : Normal Auscultation: Bowel Sounds: Normal Tenderness: RLQ Skin: Red, Tender, Hot, Wound (DIFFUSE RIGHT LABIA EDEMA WITH SEVERE TENDERNESS AND ERYTHEMA TO SURROUNDING TISSURE ADVANCED TO MONS) Musculoskeletal: Normal Psychiatric: Normal Mood Description: Calm Speech Pattern: Clear, Appropriate - Laboratory and Diagnostics Result Diagrams: 03/02/21 06:15 03/02/21 06:15 Labs: 02/26/21 16:56 Blood Blood Culture - Preliminary 02/26/21 16:40 Blood Blood Culture - Preliminary 02/26/21 22:05 Urine,Clean Catch Urine Culture - Final Escherichia Coli Laboratory WBC 6.3 X10^3/uL (3.6-10.0) 03/02/21 06:15 RBC 3.61 X10^6/uL (3.5-5.4) 03/02/21 06:15 Hgb 10.5 g/dL (12.0-16.0) L 03/02/21 06:15 Hct 31.7 % (36.0-47.0) L 03/02/21 06:15 MCV 87.6 fL (80.0-100.0) 03/02/21 06:15 MCH 29.0 pg (27.0-34.0) 03/02/21 06:15 MCHC 33.1 g/dL (33.0-35.0) 03/02/21 06:15 RDW 12.7 % (11.6-16.5) 03/02/21 06:15 Plt Count 260 X10^3/uL (150.0-450.0) 03/02/21 06:15 MPV 8.2 fL (7.4-11.0) 03/02/21 06:15 Neut % (Auto) 47.0 % (42.0-75.0) 03/02/21 06:15 Lymph % (Auto) 40.5 % (21.0-51.0) 03/02/21 06:15 [place] % (Auto) 9.9 % (0.0-13.0) 03/02/21 06:15 Eos % (Auto) 2.4 % (0.9-2.9) 03/02/21 06:15 Baso % (Auto) 0.2 % (0.2-1.0) 03/02/21 06:15 Neut # (Auto) 3.0 x10^3/uL (2.2-4.8) 03/02/21 06:15 Lymph # (Auto) 2.6 X10^3/uL (1.3-2.9) 03/02/21 06:15 [place] # (Auto) 0.6 x10^3/uL (0.3-0.8) 03/02/21 06:15 Eos # (Auto) 0.2 x10^3/uL (0.0-0.2) 03/02/21 06:15 Baso # (Auto) 0.0 X10^3/uL (0.0-0.1) 03/02/21 06:15 Absolute Nucleated RBC 0.1 /100WBC 03/02/21 06:15 ESR 36 MM/HOUR (0-20) H 02/27/21 13:51 Sample Site Left brachial 02/26/21 17:45 ABG pH 7.480 (7.35-7.45) H 02/26/21 17:45 ABG pCO2 44.0 mmHg (35.0-45.0) 02/26/21 17:45 ABG pO2 86.0 mmHg (80.0-100.0) 02/26/21 17:45 ABG HCO3 32.8 mmol/L (22-26) H* 02/26/21 17:45 ABG O2 Saturation 97.0 % (90-100) 02/26/21 17:45 ABG Base Excess 8.3 mmol/L (-2.0-2.0) H 02/26/21 17:45 Shaka Test Na 02/26/21 17:45 A-a Gradient 9.0 mmHg 02/26/21 17:45 FiO2 21.0 02/26/21 17:45 Blood Gas Comments Jessie well aw 02/26/21 17:45 Sodium 144 mmol/L (136-145) 03/02/21 06:15 Corrected Sodium 147 mmol/L (136-145) H 03/02/21 06:15 Potassium 3.9 mmol/L (3.5-5.1) 03/02/21 06:15 Chloride 112 mmol/L (98-107) H 03/02/21 06:15 Carbon Dioxide 25.5 mmol/L (21-32) 03/02/21 06:15 BUN 10 mg/dL (7-18) 03/02/21 06:15 Creatinine 0.49 mg/dL (0.55-1.02) L 03/02/21 06:15 Est GFR (MDRD) Af Amer > 60 (>60) 03/02/21 06:15 Est GFR (MDRD) Non-Af > 60 (>60) 03/02/21 06:15 Glucose 206 mg/dL (65-99) H 03/02/21 06:15 POC Glucose (mg/dL) 210 mg/dL (65-99) H 03/02/21 16:36 Hemoglobin A1c > 16.0 % 02/27/21 13:51 Lactic Acid 0.8 mmol/L (0.4-2.0) 02/27/21 13:51 Calcium 7.6 mg/dL (8.5-10.1) L 03/02/21 06:15 Corrected Calcium 9.4 mg/dL (8.5-10.1) 03/02/21 06:15 Magnesium 2.0 mg/dL (1.7-2.9) 03/02/21 06:15 Total Bilirubin 0.20 mg/dL (0.2-1.0) 03/02/21 06:15 AST 19 Units/L (15-37) 03/02/21 06:15 ALT 17 Units/L (12-78) 03/02/21 06:15 Alkaline Phosphatase 85 Units/L (46-116) 03/02/21 06:15 C-Reactive Protein 0.60 mg/L (0-3.0) 03/02/21 06:15 Total Protein 5.1 g/dL (6.4-8.2) L 03/02/21 06:15 Albumin 1.8 g/dL (3.4-5.0) L 03/02/21 06:15 Globulin 3.3 g/dL (2.5-4.5) 03/02/21 06:15 Albumin/Globulin Ratio 0.5 Ratio (1.1-2.1) L 03/02/21 06:15 Specimen Type Clean catch urine 02/26/21 22:05 Urine Color Yellow (YELLOW) 02/26/21 22:05 Urine Appearance Cloudy (CLEAR) 02/26/21 22:05 Urine pH 6.0 (5.0 - 8.0) 02/26/21 22:05 Ur Specific [place] 1.010 (1.000-1.030) 02/26/21 22:05 Urine Protein 1+ (NEGATIVE) 02/26/21 22:05 Urine Glucose (UA) 4+ (NEGATIVE) 02/26/21 22:05 Urine Ketones 2+ (NEGATIVE) 02/26/21 22:05 Urine Occult Blood 2+ (NEGATIVE) 02/26/21 22:05 Urine Nitrite Positive (NEGATIVE) 02/26/21 22:05 Urine Bilirubin Negative (NEGATIVE) 02/26/21 22:05 Urine Urobilinogen Normal (NORMAL) 02/26/21 22:05 Ur Leukocyte Esterase 3+ (NEGATIVE) 02/26/21 22:05 Urine RBC 5-10 /HPF (0-3) A 02/26/21 22:05 Urine WBC Tntc /HPF (0-5) A 02/26/21 22:05 Ur Squamous Epith Cells Rare /HPF (NEGATIVE) 02/26/21 22:05 Urine Bacteria 2+ /HPF (NEGATIVE) 02/26/21 22:05 Ur Culture Indicated? Yes/culture set up 02/26/21 22:05 Stl C. diff Tox B Gene Negative (NEGATIVE) 02/28/21 09:45 Stl C. diff [id number] Presumptive negative (NEGATIVE) 02/28/21 09:45 Vancomycin Trough 10.0 ug/mL (15-20) L 03/02/21 06:15 Acetone, Semi-Quant Negative (NEGATIVE) 02/26/21 16:40 SARS CoV-2 RNA Rapid GAGAN Positive (NEGATIVE) A 02/26/21 19:30 - Plan (1) Abscess of genital labia Status: Acute Plan: BLOOD CULTURES ON ADMISSION. IV HDYRATION PAIN CONTROL. BS CONTROL, CONSULT SURGEON FOR I&D. IV VANCOMYCIN, VERIFY HOME MEDICATION. SERUM ACETONE ON ADMISSION, CXR AND ABG DUE TO COVID 19, ISOLATION PRECAUTIONS. STOOL STUDIES ORDERED ON ADMISSION, REMDESIVIR (2) COVID-19 Status: Acute (3) Diabetes mellitus type 2, uncontrolled, without complications Status: Chronic (4) Acute hyperglycemia Status: Acute (5) UTI (urinary tract infection) Status: Acute Plan: IV ROCEPHIN
[2021-03-02] MEDS: LANTUS SC SCH (21:26)
[2021-03-02] MEDS: SNACK - Diabetic Appropriate PO SCH (21:26)
[2021-03-02] MEDS: NORCO 5/325 MG TAB PO PRN (21:29)
[2021-03-03] MEDS: NS 1000 ML 1,000 ML IV SCH ×2 (05:27→18:19)
[2021-03-03] MEDS: VANCOMYCIN IV *PREMIX 1.25 G/250 ML BAG 1.25 G/250 ML PIGGYBACK IV SCH ×3 (06:00→21:28)
[2021-03-03] MEDS: HumuLIN R SUBCUT PRN ×4 (06:02→21:25)
[2021-03-03 08:18] LABS: BASOPHILS # (AUTO) 0.1 X10^3/uL (0.0-0.1); BASOPHILS % (AUTO) 0.9 % (0.2-1.0); EOSINOPHILS # (AUTO) 0.1 x10^3/uL (0.0-0.2); EOSINOPHILS % (AUTO) 2.3 % (0.9-2.9); HEMATOCRIT 31.5 % (36.0-47.0); HEMOGLOBIN 10.4 g/dL (12.0-16.0); LYMPHOCYTES # (AUTO) 2.1 X10^3/uL (1.3-2.9); LYMPHOCYTES % (AUTO) 35.1 % (21.0-51.0); MEAN CORPUSCULAR VOLUME 87.7 fL (80.0-100.0); MEAN PLATELET VOLUME 8.4 fL (7.4-11.0); MONOCYTES # (AUTO) 0.6 x10^3/uL (0.3-0.8); MONOCYTES % (AUTO) 10.5 % (0.0-13.0); NEUTROPHILS # (AUTO) 3.1 x10^3/uL (2.2-4.8); NEUTROPHILS % (AUTO) 51.2 % (42.0-75.0); PLATELET COUNT 315 X10^3/uL (150.0-450.0); RED BLOOD COUNT 3.59 X10^6/uL (3.5-5.4); RED CELL DISTRIBUTION WIDTH 13.1 % (11.6-16.5); WHITE BLOOD COUNT 6.1 X10^3/uL (3.6-10.0)
[2021-03-03 08:34] LABS: ALANINE AMINOTRANSFERASE 24 Units/L (12-78); ALBUMIN 1.9 g/dL (3.4-5.0); ALKALINE PHOSPHATASE 84 Units/L (46-116); ASPARTATE AMINO TRANSFERASE 28 Units/L (15-37); BLOOD UREA NITROGEN 11 mg/dL (7-18); CALCIUM 7.9 mg/dL (8.5-10.1); CARBON DIOXIDE 26.4 mmol/L (21-32); CHLORIDE 111 mmol/L (98-107); COR CA(FOR HYPOALB) 9.6 mg/dL (8.5-10.1); CREATININE 0.53 mg/dL (0.55-1.02); SODIUM 144 mmol/L (136-145); TOTAL PROTEIN 5.4 g/dL (6.4-8.2); eGFR NON BLACK RACES > 60 (>60)
[2021-03-03] MEDS: PROTONIX TAB 40 MG PO SCH (08:36)
[2021-03-03] MEDS: ROCEPHIN 1 GRAM IV PREMIX 1 G/50 ML IV.SOLN. IV SCH (08:37)
[2021-03-03] MEDS: ZOFRAN INJ 4 MG VIAL IVP PRN ×2 (08:37→18:07)
[2021-03-03] MEDS ORDERED: DILAUDID INJ ONE (10:43)
[2021-03-03] MEDS: LOVENOX INJ 40 MG SYR SC SCH (10:45)
[2021-03-03] MEDS: DILAUDID INJ IVP PRN ×2 (10:45→18:07)
[2021-03-03 14:17] LABS: CREATININE 0.5 mg/dL (0.55-1.02); VANCOMYCIN,TROUGH 11.4 ug/mL (15-20)
--- NOTE | 2021-03-03 15:43 | DR.PROGNOT ---
Hospital Progress Notes - Progress Note for Day of: Progress Note Date: 03/03/21 - Chief Complaint Chief Complaint: moderate pain at incision site . cultures are negative so far . CBC normal . BS is less than 200 . Packing was removed and dressing was changed - Past Medical Family Social History Past Med/Fam/Surg Hx: No changes since H&P Allergies: Allergies No Known Drug Allergies Allergy (Verified 02/04/19 17:17) - Review Of Systems ROS: No change since H&P - Vital Signs Vital Signs: Temperature 98.4 F Pulse Rate [Left Radial] 92 Pulse Rate 111 Respiratory Rate 18 Blood Pressure [Right Arm] 106/70 Blood Pressure [Left Arm] 109/68 Blood Pressure 123/85 O2 Sat by Pulse Oximetry 100 - Physical Exam Oriented: Normal Eyes: Normal Ear: Normal Nose: Normal Throat: Normal Cardiovascular: Normal : Normal GI:Auscultation: Normal GI:Palpation: Normal GI: Tenderness: RLQ Skin: Red, Tender, Hot, Wound (less edema ,and less cellulitis pubic area and Rt side of vagina .) Musculoskeletal: Normal Psychiatric: Normal Mood Description: Calm Speech Pattern: Clear, Appropriate - Laboratory and Diagnostics Result Diagrams: 03/03/21 07:30 03/03/21 13:43 Labs: 03/02/21 16:15 Drainage Gram Stain - Final 03/02/21 16:15 Drainage Wound Culture - Preliminary 02/26/21 16:56 Blood Blood Culture - Preliminary 02/26/21 16:40 Blood Blood Culture - Preliminary 02/26/21 22:05 Urine,Clean Catch Urine Culture - Final Escherichia Coli Laboratory WBC 6.1 X10^3/uL (3.6-10.0) 03/03/21 07:30 RBC 3.59 X10^6/uL (3.5-5.4) 03/03/21 07:30 Hgb 10.4 g/dL (12.0-16.0) L 03/03/21 07:30 Hct 31.5 % (36.0-47.0) L 03/03/21 07:30 MCV 87.7 fL (80.0-100.0) 03/03/21 07:30 MCH 29.0 pg (27.0-34.0) 03/03/21 07:30 MCHC 33.0 g/dL (33.0-35.0) 03/03/21 07:30 RDW 13.1 % (11.6-16.5) 03/03/21 07:30 Plt Count 315 X10^3/uL (150.0-450.0) 03/03/21 07:30 MPV 8.4 fL (7.4-11.0) 03/03/21 07:30 Neut % (Auto) 51.2 % (42.0-75.0) 03/03/21 07:30 Lymph % (Auto) 35.1 % (21.0-51.0) 03/03/21 07:30 [place] % (Auto) 10.5 % (0.0-13.0) 03/03/21 07:30 Eos % (Auto) 2.3 % (0.9-2.9) 03/03/21 07:30 Baso % (Auto) 0.9 % (0.2-1.0) 03/03/21 07:30 Neut # (Auto) 3.1 x10^3/uL (2.2-4.8) 03/03/21 07:30 Lymph # (Auto) 2.1 X10^3/uL (1.3-2.9) 03/03/21 07:30 [place] # (Auto) 0.6 x10^3/uL (0.3-0.8) 03/03/21 07:30 Eos # (Auto) 0.1 x10^3/uL (0.0-0.2) 03/03/21 07:30 Baso # (Auto) 0.1 X10^3/uL (0.0-0.1) 03/03/21 07:30 Absolute Nucleated RBC 0.0 /100WBC 03/03/21 07:30 ESR 36 MM/HOUR (0-20) H 02/27/21 13:51 Sample Site Left brachial 02/26/21 17:45 ABG pH 7.480 (7.35-7.45) H 02/26/21 17:45 ABG pCO2 44.0 mmHg (35.0-45.0) 02/26/21 17:45 ABG pO2 86.0 mmHg (80.0-100.0) 02/26/21 17:45 ABG HCO3 32.8 mmol/L (22-26) H* 02/26/21 17:45 ABG O2 Saturation 97.0 % (90-100) 02/26/21 17:45 ABG Base Excess 8.3 mmol/L (-2.0-2.0) H 02/26/21 17:45 Shaka Test Na 02/26/21 17:45 A-a Gradient 9.0 mmHg 02/26/21 17:45 FiO2 21.0 02/26/21 17:45 Blood Gas Comments Jessie well aw 02/26/21 17:45 Sodium 144 mmol/L (136-145) 03/03/21 07:30 Corrected Sodium TNP 03/03/21 07:30 Potassium 3.9 mmol/L (3.5-5.1) 03/03/21 07:30 Chloride 111 mmol/L (98-107) H 03/03/21 07:30 Carbon Dioxide 26.4 mmol/L (21-32) 03/03/21 07:30 BUN 11 mg/dL (7-18) 03/03/21 07:30 Creatinine 0.50 mg/dL (0.55-1.02) L 03/03/21 13:43 Est GFR (MDRD) Af Amer > 60 (>60) 03/03/21 07:30 Est GFR (MDRD) Non-Af > 60 (>60) 03/03/21 07:30 Glucose 91 mg/dL (65-99) 03/03/21 07:30 POC Glucose (mg/dL) 181 mg/dL (65-99) H 03/03/21 11:29 Hemoglobin A1c > 16.0 % 02/27/21 13:51 Lactic Acid 0.8 mmol/L (0.4-2.0) 02/27/21 13:51 Calcium 7.9 mg/dL (8.5-10.1) L 03/03/21 07:30 Corrected Calcium 9.6 mg/dL (8.5-10.1) 03/03/21 07:30 Magnesium 2.0 mg/dL (1.7-2.9) 03/02/21 06:15 Total Bilirubin 0.40 mg/dL (0.2-1.0) 03/03/21 07:30 AST 28 Units/L (15-37) 03/03/21 07:30 ALT 24 Units/L (12-78) 03/03/21 07:30 Alkaline Phosphatase 84 Units/L (46-116) 03/03/21 07:30 C-Reactive Protein 0.60 mg/L (0-3.0) 03/02/21 06:15 Total Protein 5.4 g/dL (6.4-8.2) L 03/03/21 07:30 Albumin 1.9 g/dL (3.4-5.0) L 03/03/21 07:30 Globulin 3.5 g/dL (2.5-4.5) 03/03/21 07:30 Albumin/Globulin Ratio 0.5 Ratio (1.1-2.1) L 03/03/21 07:30 Specimen Type Clean catch urine 02/26/21 22:05 Urine Color Yellow (YELLOW) 02/26/21 22:05 Urine Appearance Cloudy (CLEAR) 02/26/21 22:05 Urine pH 6.0 (5.0 - 8.0) 02/26/21 22:05 Ur Specific [place] 1.010 (1.000-1.030) 02/26/21 22:05 Urine Protein 1+ (NEGATIVE) 02/26/21 22:05 Urine Glucose (UA) 4+ (NEGATIVE) 02/26/21 22:05 Urine Ketones 2+ (NEGATIVE) 02/26/21 22:05 Urine Occult Blood 2+ (NEGATIVE) 02/26/21 22:05 Urine Nitrite Positive (NEGATIVE) 02/26/21 22:05 Urine Bilirubin Negative (NEGATIVE) 02/26/21 22:05 Urine Urobilinogen Normal (NORMAL) 02/26/21 22:05 Ur Leukocyte Esterase 3+ (NEGATIVE) 02/26/21 22:05 Urine RBC 5-10 /HPF (0-3) A 02/26/21 22:05 Urine WBC Tntc /HPF (0-5) A 02/26/21 22:05 Ur Squamous Epith Cells Rare /HPF (NEGATIVE) 02/26/21 22:05 Urine Bacteria 2+ /HPF (NEGATIVE) 02/26/21 22:05 Ur Culture Indicated? Yes/culture set up 02/26/21 22:05 Stl C. diff Tox B Gene Negative (NEGATIVE) 02/28/21 09:45 Stl C. diff [id number] Presumptive negative (NEGATIVE) 02/28/21 09:45 Vancomycin Trough 11.4 ug/mL (15-20) L 03/03/21 13:43 Acetone, Semi-Quant Negative (NEGATIVE) 02/26/21 16:40 SARS CoV-2 RNA Rapid GAGAN Positive (NEGATIVE) A 02/26/21 19:30 - Assessment and Plan 1: skin abscess pubic area and Lateral vaginal wall . same local care with dressing changes and IV ATB , Diabetic control . will follow as out Pt .. - Problem Patient Problems: Patient Problems Diabetes mellitus type 2, uncontrolled, without complications (Chronic) E11.65 Abscess of genital labia (Acute) N76.4 Acute hyperglycemia (Acute) R73.9 Cellulitis of labia majora (Acute) N76.2 COVID-19 (Acute) U07.1 UTI (urinary tract infection) (Acute) N39.0
[2021-03-03] MEDS: REMDESIVIR 100 MG in NS 250 ML IV 250 ML IV SCH (17:29)
[2021-03-03] MEDS: SNACK - Diabetic Appropriate PO SCH (20:00)
[2021-03-03] MEDS: LANTUS SC SCH (21:24)
[2021-03-04 05:30] LABS: BASOPHILS # (AUTO) 0.1 X10^3/uL (0.0-0.1); EOSINOPHILS # (AUTO) 0.1 x10^3/uL (0.0-0.2); EOSINOPHILS % (AUTO) 1.3 % (0.9-2.9); HEMATOCRIT 29.9 % (36.0-47.0); HEMOGLOBIN 9.8 g/dL (12.0-16.0); LYMPHOCYTES # (AUTO) 2.3 X10^3/uL (1.3-2.9); LYMPHOCYTES % (AUTO) 35.2 % (21.0-51.0); MEAN CORPUSCULAR HEMOGLOBIN 28.8 pg (27.0-34.0); MEAN CORPUSCULAR HGB CONC 32.7 g/dL (33.0-35.0); MEAN CORPUSCULAR VOLUME 88.1 fL (80.0-100.0); MEAN PLATELET VOLUME 8.2 fL (7.4-11.0); MONOCYTES # (AUTO) 0.6 x10^3/uL (0.3-0.8); MONOCYTES % (AUTO) 9.3 % (0.0-13.0); NEUTROPHILS # (AUTO) 3.6 x10^3/uL (2.2-4.8); NEUTROPHILS % (AUTO) 53.2 % (42.0-75.0); PLATELET COUNT 312 X10^3/uL (150.0-450.0); RED CELL DISTRIBUTION WIDTH 13.3 % (11.6-16.5); WHITE BLOOD COUNT 6.7 X10^3/uL (3.6-10.0)
[2021-03-04 05:50] LABS: ALANINE AMINOTRANSFERASE 26 Units/L (12-78); ALBUMIN 1.9 g/dL (3.4-5.0); ALKALINE PHOSPHATASE 74 Units/L (46-116); ASPARTATE AMINO TRANSFERASE 23 Units/L (15-37); BLOOD UREA NITROGEN 8 mg/dL (7-18); CARBON DIOXIDE 26.8 mmol/L (21-32); CHLORIDE 111 mmol/L (98-107); COR CA(FOR HYPOALB) 9.7 mg/dL (8.5-10.1); COR NA(FOR HYPERGLY) 147 mmol/L (136-145); CREATININE 0.48 mg/dL (0.55-1.02); SODIUM 145 mmol/L (136-145); TOTAL PROTEIN 5.2 g/dL (6.4-8.2); eGFR NON BLACK RACES > 60 (>60)
[2021-03-04] MEDS: NS 1000 ML 1,000 ML IV SCH (06:02)
[2021-03-04] MEDS: VANCOMYCIN IV *PREMIX 1.25 G/250 ML BAG 1.25 G/250 ML PIGGYBACK IV SCH (06:09)
[2021-03-04 08:08] VITALS: BP 108/70
[2021-03-04] MEDS: ROCEPHIN 1 GRAM IV PREMIX 1 G/50 ML IV.SOLN. IV SCH (08:55)
[2021-03-04] MEDS: LOVENOX INJ 40 MG SYR SC SCH (08:55)
[2021-03-04] MEDS: PROTONIX TAB 40 MG PO SCH (08:55)
[2021-03-04] MEDS: K-DUR TAB 20 MEQ PO PRN (08:56)
[2021-03-04] MEDS: ZOFRAN INJ 4 MG VIAL IVP PRN (08:58)
[2021-03-04] MEDS: NORCO 5/325 MG TAB PO PRN (09:39)
--- NOTE | 2021-03-04 10:13 | DR.PROGNOT ---
Hospital Progress Notes - Progress Note for Day of: Progress Note Date: 03/04/21 - Chief Complaint Chief Complaint: moderate pain at incision site . cultures show Gram - rods. CBC normal . BS is less than 200 . dressing was chsnged ..less cellulitis , no necrosis . minimal drainage now - Past Medical Family Social History Past Med/Fam/Surg Hx: No changes since H&P Allergies: Allergies No Known Drug Allergies Allergy (Verified 02/04/19 17:17) - Review Of Systems ROS: No change since H&P - Vital Signs Vital Signs: Temperature 98.0 F Pulse Rate [Left Radial] 92 Pulse Rate 111 Respiratory Rate 20 Blood Pressure [Right Arm] 108/70 Blood Pressure [Left Arm] 109/68 Blood Pressure 123/85 O2 Sat by Pulse Oximetry 97 - Physical Exam Oriented: Normal Eyes: Normal Ear: Normal Nose: Normal Throat: Normal Cardiovascular: Normal : Normal GI:Auscultation: Normal GI:Palpation: Normal GI: Tenderness: RLQ Skin: Red, Tender, Hot, Wound (less edema ,and less cellulitis pubic area and Rt side of vagina .) Musculoskeletal: Normal Psychiatric: Normal Mood Description: Calm Speech Pattern: Clear, Appropriate - Laboratory and Diagnostics Result Diagrams: 03/04/21 04:43 03/04/21 04:43 Labs: 03/02/21 16:15 Drainage Gram Stain - Final 03/02/21 16:15 Drainage Wound Culture - Preliminary 02/26/21 16:56 Blood Blood Culture - Final 02/26/21 16:40 Blood Blood Culture - Final 02/26/21 22:05 Urine,Clean Catch Urine Culture - Final Escherichia Coli Laboratory WBC 6.7 X10^3/uL (3.6-10.0) 03/04/21 04:43 RBC 3.40 X10^6/uL (3.5-5.4) L 03/04/21 04:43 Hgb 9.8 g/dL (12.0-16.0) L 03/04/21 04:43 Hct 29.9 % (36.0-47.0) L 03/04/21 04:43 MCV 88.1 fL (80.0-100.0) 03/04/21 04:43 MCH 28.8 pg (27.0-34.0) 03/04/21 04:43 MCHC 32.7 g/dL (33.0-35.0) L 03/04/21 04:43 RDW 13.3 % (11.6-16.5) 03/04/21 04:43 Plt Count 312 X10^3/uL (150.0-450.0) 03/04/21 04:43 MPV 8.2 fL (7.4-11.0) 03/04/21 04:43 Neut % (Auto) 53.2 % (42.0-75.0) 03/04/21 04:43 Lymph % (Auto) 35.2 % (21.0-51.0) 03/04/21 04:43 [place] % (Auto) 9.3 % (0.0-13.0) 03/04/21 04:43 Eos % (Auto) 1.3 % (0.9-2.9) 03/04/21 04:43 Baso % (Auto) 1.0 % (0.2-1.0) 03/04/21 04:43 Neut # (Auto) 3.6 x10^3/uL (2.2-4.8) 03/04/21 04:43 Lymph # (Auto) 2.3 X10^3/uL (1.3-2.9) 03/04/21 04:43 [place] # (Auto) 0.6 x10^3/uL (0.3-0.8) 03/04/21 04:43 Eos # (Auto) 0.1 x10^3/uL (0.0-0.2) 03/04/21 04:43 Baso # (Auto) 0.1 X10^3/uL (0.0-0.1) 03/04/21 04:43 Absolute Nucleated RBC 0.1 /100WBC 03/04/21 04:43 ESR 36 MM/HOUR (0-20) H 02/27/21 13:51 Sample Site Left brachial 02/26/21 17:45 ABG pH 7.480 (7.35-7.45) H 02/26/21 17:45 ABG pCO2 44.0 mmHg (35.0-45.0) 02/26/21 17:45 ABG pO2 86.0 mmHg (80.0-100.0) 02/26/21 17:45 ABG HCO3 32.8 mmol/L (22-26) H* 02/26/21 17:45 ABG O2 Saturation 97.0 % (90-100) 02/26/21 17:45 ABG Base Excess 8.3 mmol/L (-2.0-2.0) H 02/26/21 17:45 Shaka Test Na 02/26/21 17:45 A-a Gradient 9.0 mmHg 02/26/21 17:45 FiO2 21.0 02/26/21 17:45 Blood Gas Comments Jessie well aw 02/26/21 17:45 Sodium 145 mmol/L (136-145) 03/04/21 04:43 Corrected Sodium 147 mmol/L (136-145) H 03/04/21 04:43 Potassium 3.6 mmol/L (3.5-5.1) 03/04/21 04:43 Chloride 111 mmol/L (98-107) H 03/04/21 04:43 Carbon Dioxide 26.8 mmol/L (21-32) 03/04/21 04:43 BUN 8 mg/dL (7-18) 03/04/21 04:43 Creatinine 0.48 mg/dL (0.55-1.02) L 03/04/21 04:43 Est GFR (MDRD) Af Amer > 60 (>60) 03/04/21 04:43 Est GFR (MDRD) Non-Af > 60 (>60) 03/04/21 04:43 Glucose 170 mg/dL (65-99) H 03/04/21 04:43 POC Glucose (mg/dL) 224 mg/dL (65-99) H 03/03/21 20:33 Hemoglobin A1c > 16.0 % 02/27/21 13:51 Lactic Acid 0.8 mmol/L (0.4-2.0) 02/27/21 13:51 Calcium 8.0 mg/dL (8.5-10.1) L 03/04/21 04:43 Corrected Calcium 9.7 mg/dL (8.5-10.1) 03/04/21 04:43 Magnesium 2.0 mg/dL (1.7-2.9) 03/02/21 06:15 Total Bilirubin 0.40 mg/dL (0.2-1.0) 03/04/21 04:43 AST 23 Units/L (15-37) 03/04/21 04:43 ALT 26 Units/L (12-78) 03/04/21 04:43 Alkaline Phosphatase 74 Units/L (46-116) 03/04/21 04:43 C-Reactive Protein 0.60 mg/L (0-3.0) 03/02/21 06:15 Total Protein 5.2 g/dL (6.4-8.2) L 03/04/21 04:43 Albumin 1.9 g/dL (3.4-5.0) L 03/04/21 04:43 Globulin 3.3 g/dL (2.5-4.5) 03/04/21 04:43 Albumin/Globulin Ratio 0.6 Ratio (1.1-2.1) L 03/04/21 04:43 Specimen Type Clean catch urine 02/26/21 22:05 Urine Color Yellow (YELLOW) 02/26/21 22:05 Urine Appearance Cloudy (CLEAR) 02/26/21 22:05 Urine pH 6.0 (5.0 - 8.0) 02/26/21 22:05 Ur Specific [place] 1.010 (1.000-1.030) 02/26/21 22:05 Urine Protein 1+ (NEGATIVE) 02/26/21 22:05 Urine Glucose (UA) 4+ (NEGATIVE) 02/26/21 22:05 Urine Ketones 2+ (NEGATIVE) 02/26/21 22:05 Urine Occult Blood 2+ (NEGATIVE) 02/26/21 22:05 Urine Nitrite Positive (NEGATIVE) 02/26/21 22:05 Urine Bilirubin Negative (NEGATIVE) 02/26/21 22:05 Urine Urobilinogen Normal (NORMAL) 02/26/21 22:05 Ur Leukocyte Esterase 3+ (NEGATIVE) 02/26/21 22:05 Urine RBC 5-10 /HPF (0-3) A 02/26/21 22:05 Urine WBC Tntc /HPF (0-5) A 02/26/21 22:05 Ur Squamous Epith Cells Rare /HPF (NEGATIVE) 02/26/21 22:05 Urine Bacteria 2+ /HPF (NEGATIVE) 02/26/21 22:05 Ur Culture Indicated? Yes/culture set up 02/26/21 22:05 Stl C. diff Tox B Gene Negative (NEGATIVE) 02/28/21 09:45 Stl C. diff [id number] Presumptive negative (NEGATIVE) 02/28/21 09:45 Vancomycin Trough 11.4 ug/mL (15-20) L 03/03/21 13:43 Acetone, Semi-Quant Negative (NEGATIVE) 02/26/21 16:40 SARS CoV-2 RNA Rapid GAGAN Positive (NEGATIVE) A 02/26/21 19:30 - Assessment and Plan 1: skin abscess pubic area and Lateral vaginal wall . DM . COVID 19 . same local care with dressing changes and ATB ( Cipro 500 BID ). , Diabetic control . COVID Tx. will follow as out Pt in 10 days .. - Problem Patient Problems: Patient Problems Diabetes mellitus type 2, uncontrolled, without complications (Chronic) E11.65 Abscess of genital labia (Acute) N76.4 Acute hyperglycemia (Acute) R73.9 Cellulitis of labia majora (Acute) N76.2 COVID-19 (Acute) U07.1 UTI (urinary tract infection) (Acute) N39.0
[2021-03-04] MEDS: HumuLIN R SUBCUT PRN (11:48)
== END 2021-03-04 16:30 | disposition home or self-care (01) | DRG 746 ==
LOC: OBS 15:55 → ER 15:55 → OBSVTOIN 18:49 → OBS 20:00 → ICU 02-27 14:25
PROVIDERS: ADMIT Family Medicine; ATTEND Internal Medicine
DX: Z86.14 Personal history of Methicillin resistant Staphylococcus aureus infection; R70.0 Elevated erythrocyte sedimentation rate; U07.1 COVID-19; N76.4 Abscess of vulva; N39.0 Urinary tract infection, site not specified; N76.2 Acute vulvitis; E11.65 Type 2 diabetes mellitus with hyperglycemia; B96.20 Unspecified Escherichia coli [E. coli] as the cause of diseases classified elsewhere

== ENCOUNTER 2022-09-22 00:44 | Inpatient (IN) ==
--- NOTE | 2022-09-22 01:05 | DR.DIARMA ---
HPI Time seen Time Seen by Provider: 09/22/22 01:04 PCP Primary Care Physician: Fatemeh Complaint Chief Complaint Doctor Comments: 36 y/o female presents for evaluation. 5th ER visit here in the past 5 days. Started with N/V/D, was treated and d/c'd. Ret urned few days later, with presistent vomiting, found to have gallstones. Labs have been acceptable. No elevated WBC or liver enzymes. Has appt with surgery tomorrow. Pt having persistent nausea, vomiting, epigastic pain. Pt states emesis is dark, black. Doesn't look at her stools, but states they smell bad. Having pain of epgastric region, does not radiate. Nothing makes it better, nothing makes it worse. Has been having fever, chills, lightheadedness. Denies URI symptoms. Chief Complaint:: Pt c/o abd pain, n/v/d. She states she has been seen here x 3 for same complaint and has an appt with surgeon 09/23/22 to schedule gallbladder removal. COVID-19 Coronavirus risk:travel/contact w/high risk person: No Has patient experienced Coronavirus symptoms: No Source History Provided: Patient Mode of Arrival Mode of Arrival: Stretcher Timing Onset of Chief Complaint: 09/22/22 PMH PMH Past Medical History: Yes Past Medical History: Diabetes Past Surgical History: Yes Surgical History: Past Surgical History Comment: abscess removal from breast and stomach Family History History of Family Medical Conditions: No Family Medical History: Diabetes Mellitus Social History Does patient currently use any type of tobacco product: No Have you used tobacco products in the last 12 months: No Type of Tobacco Use: None Does any household member use tobacco: No Alcohol Use: None Do you use any recreational Drugs:: No Lives With: Family Lives Where: Home Travel Risk Coronavirus risk:travel/contact w/high risk person: No Has patient experienced Coronavirus symptoms: No Infectious screening In the last 2 months have you had wt loss of >10#?: NO Have you had fever, night sweats or hemotysis?: No Have you traveled outside the country in the last 6 months?: No Isolation: Standard ROS Review of Systems Constitutional: Chills, Diaphoresis, Fever and Weakness Eyes: No Symptoms Reported ENTM: No Symptoms Reported Respiratoy: No Symptoms Reported Cardiovascular: No Symptoms Reported Gastrointestinal/Abdominal: Nausea and Vomiting Genitourinary: No Symptoms Reported Neurological: Weakness Musculoskeletal: No Symptoms Reported Integumentary: No Symptoms Reported Hematologic/Lymphatic: No Symptoms Reported Psychiatric: No Symptoms Reported All Other Systems: Reviewed and Negative PE Vital Signs Vitals: Temperature 98.0 F Pulse Rate 125 Respiratory Rate 20 Blood Pressure [Right Arm] 110/68 Blood Pressure [Left Arm] 109/68 Blood Pressure [Right Arm] 99/62 Blood Pressure 110/71 O2 Sat by Pulse Oximetry 100 General General Appearance: Alert and Other (appears uncomfortable.) Eyes Eye exam: PERRL and EOMI ENT ENT Exam: Mucous Membranes Moist Neck Neck Exam: Normal Inspection and Full ROM; negative Tenderness Respiratory Respiratory Exam: Normal Lung Sounds Bilat; negative Accessory Muscle Use or Respiratory Distress Cardiovascular Cardiovascular Exam: Regular Rate, Normal Rhythm and Normal Heart Sounds Abdominal Exam Abdominal Exam: Normal Bowel Sounds, Soft and Tenderness (epigastric, no guarding or rebound.) Extremeties Extremities Exam: Normal Inspection and Full ROM Neurologic Neurological Exam: Alert, Oriented X3 and CN II-XII Intact; negative Motor Sensory Deficit Skin Skin Exam: Warm and Dry COURSE Treatment Treatment: 36 y/o female, 4th visit for abdominal issues. + tachycardic. W/u initiated. Given IV fluids, IV Zofran. 0304 - CBC normal. CMP abnormal - glucose 349, bicarb 15. + moderate acetone in blood. ABG shows pH 7.22, HCO3 8.6. Base excess -17.2. Concerning for DKA, pt states has never had before. Given additional IV fluids, IV regular insulin. Will obtain CT of the abdomen for further evaluation. 0334 - CT shows very distended bladder. Pt declines a Bal. was able to void. Discussed with her covering attending, Dr Saez (for Dr Reddy). Will admit to ICU, on insulin drip. ROR Labs Reviewed Laboratory Results Reviewed?: Yes Result Diagrams: 09/22/22 01:25 09/22/22 01:25 Laboratory: WBC 6.5 X10^3/uL (3.6-10.0) 09/22/22 01:25 RBC 5.12 X10^6/uL (3.5-5.4) 09/22/22 01:25 Hgb 14.9 g/dL (12.0-16.0) 09/22/22 01:25 Hct 46.3 % (36.0-47.0) 09/22/22 01:25 MCV 90.4 fL (80.0-100.0) 09/22/22 01:25 MCH 29.1 pg (27.0-34.0) 09/22/22 01:25 MCHC 32.3 g/dL (33.0-35.0) L 09/22/22 01:25 RDW 12.7 % (11.6-16.5) 09/22/22 01:25 Plt Count 258 X10^3/uL (150.0-450.0) 09/22/22 01:25 MPV 8.8 fL (7.4-11.0) 09/22/22 01:25 Neut % (Auto) 64.1 % (42.0-75.0) 09/22/22 01:25 Lymph % (Auto) 26.1 % (21.0-51.0) 09/22/22 01:25 [place] % (Auto) 9.0 % (0.0-13.0) 09/22/22 01:25 Eos % (Auto) 0.1 % (0.9-2.9) L 09/22/22 01:25 Baso % (Auto) 0.7 % (0.2-1.0) 09/22/22 01:25 Neut # (Auto) 4.1 x10^3/uL (2.2-4.8) 09/22/22 01:25 Lymph # (Auto) 1.7 X10^3/uL (1.3-2.9) 09/22/22 01:25 [place] # (Auto) 0.6 x10^3/uL (0.3-0.8) 09/22/22 01:25 Eos # (Auto) 0.0 x10^3/uL (0.0-0.2) 09/22/22 01:25 Baso # (Auto) 0.0 X10^3/uL (0.0-0.1) 09/22/22 01:25 Absolute Nucleated RBC 0.1 /100WBC 09/22/22 01:25 Sample Site Rb 09/22/22 02:42 ABG pH 7.220 (7.35-7.45) L 09/22/22 02:42 ABG pCO2 21.0 mmHg (35.0-45.0) L 09/22/22 02:42 ABG pO2 127.0 mmHg (80.0-100.0) H 09/22/22 02:42 ABG HCO3 8.6 mmol/L (22-26) L* 09/22/22 02:42 ABG O2 Saturation 98.0 % (90-100) 09/22/22 02:42 ABG Base Excess -17.2 mmol/L (-2.0-2.0) L 09/22/22 02:42 Shaka Test N/a 09/22/22 02:42 A-a Gradient -4.0 mmHg 09/22/22 02:42 FiO2 21.0 09/22/22 02:42 Blood Gas Comments Jessie well ae 09/22/22 02:42 Sodium 129 mmol/L (136-145) L 09/22/22 01:25 Corrected Sodium 135 mmol/L (136-145) L 09/22/22 01:25 Potassium 3.9 mmol/L (3.5-5.1) 09/22/22 01:25 Chloride 94 mmol/L (98-107) L 09/22/22 01:25 Carbon Dioxide 15.4 mmol/L (21-32) L 09/22/22 01:25 BUN 28 mg/dL (7-18) H 09/22/22 01:25 Creatinine 1.42 mg/dL (0.55-1.02) H 09/22/22 01:25 Est GFR (MDRD) Af Amer 54 (>60) L 09/22/22 01:25 Est GFR (MDRD) Non-Af 44 (>60) L 09/22/22 01:25 Glucose 349 mg/dL (65-99) H 09/22/22 01:25 Calcium 8.2 mg/dL (8.5-10.1) L 09/22/22 01:25 Corrected Calcium 8.8 mg/dL (8.5-10.1) 09/22/22 01:25 Total Bilirubin 1.00 mg/dL (0.2-1.0) 09/22/22 01:25 AST 12 Units/L (15-37) L 09/22/22 01:25 ALT 14 Units/L (12-78) 09/22/22 01:25 Alkaline Phosphatase 113 Units/L (46-116) 09/22/22 01:25 Total Protein 7.6 g/dL (6.4-8.2) 09/22/22 01:25 Albumin 3.2 g/dL (3.4-5.0) L 09/22/22 01:25 Globulin 4.4 g/dL (2.5-4.5) 09/22/22 01:25 Albumin/Globulin Ratio 0.7 Ratio (1.1-2.1) L 09/22/22 01:25 Lipase 73 Units/L (73-393) 09/22/22 01:25 Specimen Type Clean catch urine 09/22/22 03:40 Urine Color Yellow (YELLOW) 09/22/22 03:40 Urine Appearance Clear (CLEAR) 09/22/22 03:40 Urine pH 5.0 (5.0 - 8.0) 09/22/22 03:40 Ur Specific [place] 1.020 (1.000-1.030) 09/22/22 03:40 Urine Protein 2+ (NEGATIVE) 09/22/22 03:40 Urine Glucose (UA) 4+ (NEGATIVE) 09/22/22 03:40 Urine Ketones 4+ (NEGATIVE) 09/22/22 03:40 Urine Blood 1+ (NEGATIVE) 09/22/22 03:40 Urine Nitrite Negative (NEGATIVE) 09/22/22 03:40 Urine Bilirubin Negative (NEGATIVE) 09/22/22 03:40 Urine Urobilinogen Normal (NORMAL) 09/22/22 03:40 Ur Leukocyte Esterase Negative (NEGATIVE) 09/22/22 03:40 Urine RBC 3-5 /HPF (0-3) A 09/22/22 03:40 Urine WBC 0-2 /HPF (0-5) 09/22/22 03:40 Ur Squamous Epith Cells Moderate /HPF (NEGATIVE) 09/22/22 03:40 Urine Bacteria 1+ /HPF (NEGATIVE) 09/22/22 03:40 Hyaline Casts Few /LPF (NEGATIVE) 09/22/22 03:40 Granular Casts Few /LPF (NEGATIVE) 09/22/22 03:40 Urine Mucus Few /HPF (NEGATIVE) 09/22/22 03:40 Ur Culture Indicated? No/not indicated 09/22/22 03:40 Acetone, Semi-Quant Moderate (NEGATIVE) H 09/22/22 01:25 XRAY XRAY Interpreted by: Radiologist X-ray Results: CT abd/pelvis - distended bladder, degree of R hydronephrosis. Opioid Opioid Risk Tool Age (Aydin box if 16-45): Yes History of Preadolescent Sexual Abuse: No Total: 1 Total Score Risk Category: Low Risk Copyright: Anant YOST predicting aberrant behaviors Discharge Plan Diagnosis Discharge Problem: DKA, type 2, Cholelithiasis Discharge Plan Patient Disposition: 09 ADMITTED INPATIENT Condition: Stable Orders to Discharge Patient Discharge Orders: Transfer (Routine); Ordered 09/22/22 Ordered By: Luis Alfredo Lockhart
[2022-09-22] MEDS ORDERED: NS 1,000 ML IV 1,000 ML IV ONE ×5 (01:18→07:55)
[2022-09-22] MEDS ORDERED: ZOFRAN INJ 4 MG VIAL IVP ONE (01:18)
[2022-09-22] MEDS ORDERED: PROTONIX INJ 40 MG VIAL IVP ONE (01:19)
[2022-09-22] MEDS ORDERED: ZOFRAN INJ 4 MG VIAL ONE (01:22)
[2022-09-22] MEDS ORDERED: PROTONIX INJ 40 MG VIAL ONE (01:22)
[2022-09-22] MEDS ORDERED: NS 1,000 ML IV 1,000 ML ONE ×3 (01:22→06:35)
[2022-09-22 01:41] LABS: BASOPHILS % (AUTO) 0.7 % (0.2-1.0); EOSINOPHILS % (AUTO) 0.1 % (0.9-2.9); HEMATOCRIT 46.3 % (36.0-47.0); HEMOGLOBIN 14.9 g/dL (12.0-16.0); LYMPHOCYTES # (AUTO) 1.7 X10^3/uL (1.3-2.9); LYMPHOCYTES % (AUTO) 26.1 % (21.0-51.0); MEAN CORPUSCULAR HEMOGLOBIN 29.1 pg (27.0-34.0); MEAN CORPUSCULAR HGB CONC 32.3 g/dL (33.0-35.0); MEAN CORPUSCULAR VOLUME 90.4 fL (80.0-100.0); MEAN PLATELET VOLUME 8.8 fL (7.4-11.0); MONOCYTES # (AUTO) 0.6 x10^3/uL (0.3-0.8); NEUTROPHILS # (AUTO) 4.1 x10^3/uL (2.2-4.8); NEUTROPHILS % (AUTO) 64.1 % (42.0-75.0); RED BLOOD COUNT 5.12 X10^6/uL (3.5-5.4); RED CELL DISTRIBUTION WIDTH 12.7 % (11.6-16.5); WHITE BLOOD COUNT 6.5 X10^3/uL (3.6-10.0)
[2022-09-22 01:51] LABS: ALBUMIN 3.2 g/dL (3.4-5.0); CALCIUM 8.2 mg/dL (8.5-10.1); CARBON DIOXIDE 15.4 mmol/L (21-32); COR CA(FOR HYPOALB) 8.8 mg/dL (8.5-10.1); CREATININE 1.42 mg/dL (0.55-1.02); TOTAL PROTEIN 7.6 g/dL (6.4-8.2)
[2022-09-22 02:47] LABS: ABG BASE EXCESS -17.2 mmol/L (-2.0-2.0)
[2022-09-22 02:49] LABS: ABG HCO3 8.6 mmol/L (22-26)
[2022-09-22] MEDS ORDERED: NovoLIN R (or HumuLIN R) IV ONE (03:08)
[2022-09-22] MEDS ORDERED: NovoLIN R (or HumuLIN R) ONE (03:12)
--- NOTE | 2022-09-22 03:34 | CT ---
HISTORYPt c/o abd pain, n/v/d. She states she has been seen here x 3 for same complaint and has an appt with surgeon 09/23/22 to schedule gallbladder removal. .brSTUDYABDOMEN/PELVIS WITH CONCOMPARISONNoneTECHNIQUEMultiple axial images of the abdomen and pelvis were obtained from the lung bases to the pubic symphysis after the administration of IV contrast. Dose reduction techniques including Automated Exposure Control (AEC) and adjustment of mA and kV were utilized.FINDINGSThe visualized portions of the lung bases are unremarkable . The liver, spleen, pancreas, and adrenal glands are unremarkable in their CT appearance. Cholelithiasis. No gallbladder wall thickening or pericholecystic fluid. The kidneys are normal in size. Is there is mild right hydronephrosis and hydroureter. No ureteral calculi are identified.. No significant mesenteric lymphadenopathy or stranding can be observed. No free fluid or free air is seen within the abdomen. Normal appendix right lower quadrant. No bowel wall thickening or bowel dilatation is present. The colon is unremarkable. Specifically, there is no diverticulosis noted within the sigmoid colon. Urinary bladder is markedly distended. The uterus is present. The bony structures are grossly intact.IMPRESSIONMarkedly distended urinary bladder. This may explain mild right hydronephrosis and hydroureter.Cholelithiasis.Electronically signed by: Abisai Foreman (Sep 22, 2022 03:33:14)
[2022-09-22 03:46] LABS: APPEARANCE,URINE CLEAR (CLEAR); COLOR,URINE YELLOW (YELLOW)
[2022-09-22 03:47] LABS: BILIRUBIN,URINE NEGATIVE (NEGATIVE); BLOOD/HEMOGLOBIN,URINE 1+ (NEGATIVE); GLUCOSE, URINE 4+ (NEGATIVE); KETONES,URINE 4+ (NEGATIVE); LEUKOCYTE ESTERASE ,URINE NEGATIVE (NEGATIVE); NITRITES,URINE NEGATIVE (NEGATIVE); PROTEIN,URINE 2+ (NEGATIVE); UROBILINOGEN,URINE NORMAL (NORMAL)
[2022-09-22 04:06] LABS: BACTERIA,URINE 1+ /HPF (NEGATIVE); GRANULAR CASTS,URINE FEW /LPF (NEGATIVE); HYALINE CASTS, URINE FEW /LPF (NEGATIVE); SQUAMOUS EPITHELIAL CELL,UR MODERATE /HPF (NEGATIVE)
[2022-09-22 05:26] VITALS: BMI 19.5
[2022-09-22] MEDS: MYXREDLIN 100 UNIT/100 ML BAG 100 UNIT/100 ML PLAST..BAG IV PRN ×2 (05:51→08:03)
[2022-09-22] MEDS: OTBSDRIP XX SCH ×19 (05:54→23:45)
[2022-09-22] MEDS: NS 1,000 ML IV 1,000 ML IV SCH ×2 (09:51→17:44)
[2022-09-22 10:26] LABS: BLOOD UREA NITROGEN 18 mg/dL (7-18); CALCIUM 6.7 mg/dL (8.5-10.1); CARBON DIOXIDE 16.3 mmol/L (21-32); CHLORIDE 109 mmol/L (98-107); COR NA(FOR HYPERGLY) 139 mmol/L (136-145); CREATININE 1.01 mg/dL (0.55-1.02); SODIUM 138 mmol/L (136-145); eGFR NON BLACK RACES > 60 (>60)
[2022-09-22] MEDS ORDERED: NS 250 ML IV 250 ML IV ONE (10:52)
[2022-09-22] MEDS: ZOSYN VIAL 3.375 GRAMS 3.375 G in NS 100 ML IV 100 ML IV SCH ×3 (11:14→21:13)
[2022-09-22] MEDS: ZOFRAN INJ 4 MG VIAL IVP PRN ×2 (13:30→20:49)
[2022-09-22 14:42] LABS: BLOOD UREA NITROGEN 15 mg/dL (7-18); CALCIUM 6.8 mg/dL (8.5-10.1); CARBON DIOXIDE 16.8 mmol/L (21-32); CHLORIDE 107 mmol/L (98-107); COR NA(FOR HYPERGLY) 139 mmol/L (136-145); CREATININE 1.07 mg/dL (0.55-1.02); SODIUM 138 mmol/L (136-145); eGFR NON BLACK RACES > 60 (>60)
[2022-09-22] MEDS ORDERED: K-RIDER 10 MEQ/NS 100 ML 10 MEQ/100 ML BAG IV PRN (15:48)
[2022-09-22] MEDS ORDERED: K-DUR TAB 20 MEQ PO PRN (15:48)
[2022-09-22] MEDS ORDERED: POTASSIUM CHL 60 MEQ/NS 0.45% 500 ML IV PRN (15:48)
[2022-09-22] MEDS ORDERED: KLOR-CON PO PRN (15:48)
[2022-09-22] MEDS ORDERED: POTASSIUM CHLORIDE LIQ 20 MEQ UDC PO PRN (15:48)
[2022-09-22] MEDS ORDERED: POTASSIUM CHL 40 MEQ/NS 0.45% 500 ML IV PRN (15:48)
[2022-09-22] MEDS ORDERED: MICRO K EXTEN CAP 10 MEQ PO PRN (15:48)
[2022-09-22] MEDS: TORADOL 15 MG VIAL IVP PRN (17:43)
[2022-09-22 18:26] LABS: BLOOD UREA NITROGEN 12 mg/dL (7-18); CARBON DIOXIDE 20.4 mmol/L (21-32); CHLORIDE 108 mmol/L (98-107); COR NA(FOR HYPERGLY) 139 mmol/L (136-145); CREATININE 1.02 mg/dL (0.55-1.02); SODIUM 139 mmol/L (136-145); eGFR NON BLACK RACES > 60 (>60)
--- NOTE | 2022-09-22 18:33 | DR.H&P ---
H&P - History & Physical for Day of: H&P Date: 09/22/22 - Chief Complaint Chief Complaint: ABDOMINAL PAIN, N/V/D - History of Present Illness History of Present Illness: 36 y/o black female, ER admission after presenting for the 5th ER visit here in the past 5 days. Started with N/V/D, was treated and d/c'd. Returned few days later, with presistent vomiting, found to have gallstones. Labs have been acceptable. No elevated WBC or liver enzymes. Has appt with surgery tomorrow. Pt having persistent nausea, vomiting, epigastic pain. Pt states emesis is dark, black. Doesn't look at her stools, but states they smell bad. Having pain of epgastric region, does not radiate. Nothing makes it better, nothing makes it worse. Has been having fever, chills, lightheadedness. Denies URI symptoms. Pt has a PMH of uncontrolled diabetes. - Past Medical History Past Medical History: Diabetes - Past Surgical History Surgical History: - Family History Family Medical History: Diabetes Mellitus, Cancer, Hypertension - Social History Does patient currently use any type of tobacco product: No Have you used tobacco products in the last 12 months: No Type of Tobacco Use: None Does any household member use tobacco: No Alcohol Use: None - Medications Home Medications: No Known Drug Allergies Allergy (Verified 09/13/22 11:53) - Review of Systems Constitutional: Weakness, Malaise. denies: Fever Eyes: No Symptoms Reported ENT: No Symptoms Reported Respiratory: No Symptoms Reported Cardiovascular: No Symptoms Reported Gastrointestinal: Nausea, Vomiting, Abdominal Pain, Diarrhea Genitourinary: No Symptoms Reported Musculoskeletal: No Symptoms Reported Skin: No Symptoms Reported Neurological: No Symptoms Reported - Physical Exam Vital Signs: Temperature 98.9 F Pulse Rate [Left] 125 Pulse Rate 119 Respiratory Rate 14 Blood Pressure [Right Arm] 94/65 Blood Pressure [Left Arm] 109/68 Blood Pressure [Right Arm] 99/62 Blood Pressure 105/64 O2 Sat by Pulse Oximetry 99 Oriented: Normal Eyes: Normal Ear: Normal Nose: Normal, Injected Throat: Normal Respiratory: Clear Throughout Cardiovascular: Tachycardia. negative: Edema : Normal Auscultation: Bowel Sounds: Normal Palpation: Normal Tenderness: RUQ, Epigastric, Moderate Skin: Decreased Turgur Musculoskeletal: Normal Psychiatric: Normal Mood Description: Calm Speech Pattern: Clear, Appropriate - Assessment/Plan (1) DKA, type 2 Qualifiers: Diabetes mellitus complication detail: without coma Qualified Code(s): E11.10 - Type 2 diabetes mellitus with ketoacidosis without coma Status: Acute Plan: ADMIT ICU, AGRESSIVE BLOOD SUGAR CONTROL, IV HYDRATION, INSULIN DRIP PER PROTOCOL, REPEAT BMP Q 4HRS, REPEAT AM SERUM ACETONE. PRN SUPPLEMENTAL O2, PROTONIX, PRN PAIN AND NAUSEA CONTROL. STRICT I&OS, VERIFY HOME MEDICATION. CT ABD/PELVIS OBTAINED ON ADMISSION, SURGICAL CONSULT (2) Hypokalemia Status: Acute (3) Cholelithiasis Status: Acute (4) Nausea & vomiting Status: Acute (5) Dehydration Status: Acute - Allergies Allergies/Adverse Reactions: Allergies Allergy/AdvReac Type Severity Reaction Status Date / Time No Known Drug Allergies Allergy Verified 09/13/22 11:53
[2022-09-22] MEDS: MAGNESIUM SULFATE 1 GRAM/100 mL PREMIX 1 G/100 ML BAG IV PRN ×4 (19:01→23:42)
[2022-09-22] MEDS: SNACK - Diabetic Appropriate PO SCH (19:15)
[2022-09-22] MEDS: TUMS PO SCH ×2 (19:15→21:06)
[2022-09-22] MEDS: PROTONIX INJ 40 MG VIAL IVP SCH (20:28)
[2022-09-22 22:34] LABS: BLOOD UREA NITROGEN 10 mg/dL (7-18); CALCIUM 6.8 mg/dL (8.5-10.1); CARBON DIOXIDE 20.2 mmol/L (21-32); CHLORIDE 106 mmol/L (98-107); COR NA(FOR HYPERGLY) 138 mmol/L (136-145); CREATININE 1.08 mg/dL (0.55-1.02); SODIUM 136 mmol/L (136-145); eGFR NON BLACK RACES > 60 (>60)
[2022-09-22] MEDS: NS + KCL 20 MEQ/L 1,000 ML IV SCH (22:55)
[2022-09-23] MEDS: OTBSDRIP XX SCH ×9 (00:51→08:45)
[2022-09-23] MEDS: TORADOL 15 MG VIAL IVP PRN (03:02)
[2022-09-23] MEDS: ZOSYN VIAL 3.375 GRAMS 3.375 G in NS 100 ML IV 100 ML IV SCH ×3 (05:03→21:12)
[2022-09-23 05:34] LABS: SERUM ACETONE SMALL (NEGATIVE)
[2022-09-23 05:35] LABS: MAGNESIUM 2.5 mg/dL (2.0-2.9)
[2022-09-23] MEDS: NS + KCL 20 MEQ/L 1,000 ML IV SCH ×5 (05:37→21:13)
[2022-09-23 05:43] LABS: ALANINE AMINOTRANSFERASE 11 Units/L (12-78); ALBUMIN 2.2 g/dL (3.4-5.0); ALKALINE PHOSPHATASE 71 Units/L (46-116); ASPARTATE AMINO TRANSFERASE 14 Units/L (15-37); BLOOD UREA NITROGEN 8 mg/dL (7-18); CARBON DIOXIDE 23.1 mmol/L (21-32); CHLORIDE 108 mmol/L (98-107); COR CA(FOR HYPOALB) 8.4 mg/dL (8.5-10.1); CREATININE 0.83 mg/dL (0.55-1.02); SODIUM 139 mmol/L (136-145); TOTAL PROTEIN 5.1 g/dL (6.4-8.2); eGFR NON BLACK RACES > 60 (>60)
[2022-09-23 05:49] LABS: BASOPHILS % (AUTO) 0.7 % (0.2-1.0); EOSINOPHILS # (AUTO) 0.1 x10^3/uL (0.0-0.2); EOSINOPHILS % (AUTO) 2.7 % (0.9-2.9); HEMATOCRIT 30.4 % (36.0-47.0); LYMPHOCYTES # (AUTO) 1.6 X10^3/uL (1.3-2.9); LYMPHOCYTES % (AUTO) 33.1 % (21.0-51.0); MEAN CORPUSCULAR HEMOGLOBIN 29.3 pg (27.0-34.0); MEAN CORPUSCULAR HGB CONC 33.8 g/dL (33.0-35.0); MEAN CORPUSCULAR VOLUME 86.7 fL (80.0-100.0); MEAN PLATELET VOLUME 8.8 fL (7.4-11.0); MONOCYTES # (AUTO) 0.5 x10^3/uL (0.3-0.8); MONOCYTES % (AUTO) 11.3 % (0.0-13.0); NEUTROPHILS # (AUTO) 2.5 x10^3/uL (2.2-4.8); NEUTROPHILS % (AUTO) 52.2 % (42.0-75.0); RED BLOOD COUNT 3.51 X10^6/uL (3.5-5.4); RED CELL DISTRIBUTION WIDTH 12.3 % (11.6-16.5); WHITE BLOOD COUNT 4.8 X10^3/uL (3.6-10.0)
[2022-09-23 05:54] LABS: HEMOGLOBIN 10.3 g/dL (12.0-16.0)
[2022-09-23] MEDS: TUMS PO SCH ×3 (05:58→21:12)
[2022-09-23] MEDS: PROTONIX INJ 40 MG VIAL IVP SCH ×2 (08:05→20:12)
[2022-09-23] MEDS: NovoLIN R (or HumuLIN R) SUBCUT PRN ×3 (11:10→20:15)
[2022-09-23 14:15] LABS: BLOOD UREA NITROGEN 5 mg/dL (7-18); CALCIUM 7.1 mg/dL (8.5-10.1); CARBON DIOXIDE 24.8 mmol/L (21-32); CHLORIDE 108 mmol/L (98-107); COR NA(FOR HYPERGLY) 140 mmol/L (136-145); CREATININE 0.85 mg/dL (0.55-1.02); SODIUM 138 mmol/L (136-145); eGFR NON BLACK RACES > 60 (>60)
--- NOTE | 2022-09-23 17:08 | DR.PROGNOT ---
Hospital Progress Notes - Progress Note for Day of: Progress Note Date: 09/23/22 - Chief Complaint Chief Complaint: still c/o upper abdominal pain . was just started on solid food . last BS 233 . CBC is normal , Pt is afebrile .. - Past Medical Family Social History Past Med/Fam/Surg Hx: No changes since H&P Allergies: Allergies No Known Drug Allergies Allergy (Verified 09/13/22 11:53) - Review Of Systems ROS: No change since H&P - Vital Signs Vital Signs: Temperature 98.8 F Pulse Rate [Left] 125 Pulse Rate 106 Respiratory Rate 19 Blood Pressure [Right Arm] 94/65 Blood Pressure [Left Arm] 109/68 Blood Pressure [Right Arm] 99/62 Blood Pressure 94/60 O2 Sat by Pulse Oximetry 100 - Physical Exam Oriented: Normal Eyes: Normal Ear: Normal Nose: Normal, Injected Throat: Normal Cardiovascular: Tachycardia. negative: Edema : Normal GI:Auscultation: Normal GI:Palpation: Normal GI: Tenderness: RUQ, Epigastric, Moderate, Other (soft, flat abdomen with moderta epigastric and RUQ tendedrness . BS+) Skin: Decreased [place] Musculoskeletal: Normal Psychiatric: Normal Mood Description: Calm Speech Pattern: Clear, Appropriate - Laboratory and Diagnostics Result Diagrams: 09/23/22 04:10 09/23/22 14:00 Labs: Laboratory WBC 4.8 X10^3/uL (3.6-10.0) 09/23/22 04:10 RBC 3.51 X10^6/uL (3.5-5.4) 09/23/22 04:10 Hgb 10.3 g/dL (12.0-16.0) L D 09/23/22 04:10 Hct 30.4 % (36.0-47.0) L 09/23/22 04:10 MCV 86.7 fL (80.0-100.0) 09/23/22 04:10 MCH 29.3 pg (27.0-34.0) 09/23/22 04:10 MCHC 33.8 g/dL (33.0-35.0) 09/23/22 04:10 RDW 12.3 % (11.6-16.5) 09/23/22 04:10 Plt Count 163 X10^3/uL (150.0-450.0) 09/23/22 04:10 MPV 8.8 fL (7.4-11.0) 09/23/22 04:10 Neut % (Auto) 52.2 % (42.0-75.0) 09/23/22 04:10 Lymph % (Auto) 33.1 % (21.0-51.0) 09/23/22 04:10 [place] % (Auto) 11.3 % (0.0-13.0) 09/23/22 04:10 Eos % (Auto) 2.7 % (0.9-2.9) 09/23/22 04:10 Baso % (Auto) 0.7 % (0.2-1.0) 09/23/22 04:10 Neut # (Auto) 2.5 x10^3/uL (2.2-4.8) 09/23/22 04:10 Lymph # (Auto) 1.6 X10^3/uL (1.3-2.9) 09/23/22 04:10 [place] # (Auto) 0.5 x10^3/uL (0.3-0.8) 09/23/22 04:10 Eos # (Auto) 0.1 x10^3/uL (0.0-0.2) 09/23/22 04:10 Baso # (Auto) 0.0 X10^3/uL (0.0-0.1) 09/23/22 04:10 Absolute Nucleated RBC 0.1 /100WBC 09/23/22 04:10 Sample Site Rb 09/22/22 02:42 ABG pH 7.220 (7.35-7.45) L 09/22/22 02:42 ABG pCO2 21.0 mmHg (35.0-45.0) L 09/22/22 02:42 ABG pO2 127.0 mmHg (80.0-100.0) H 09/22/22 02:42 ABG HCO3 8.6 mmol/L (22-26) L* 09/22/22 02:42 ABG O2 Saturation 98.0 % (90-100) 09/22/22 02:42 ABG Base Excess -17.2 mmol/L (-2.0-2.0) L 09/22/22 02:42 Shaka Test N/a 09/22/22 02:42 A-a Gradient -4.0 mmHg 09/22/22 02:42 FiO2 21.0 09/22/22 02:42 Blood Gas Comments Jessie well ae 09/22/22 02:42 Sodium 138 mmol/L (136-145) 09/23/22 14:00 Corrected Sodium 140 mmol/L (136-145) 09/23/22 14:00 Potassium 3.1 mmol/L (3.5-5.1) L 09/23/22 14:00 Chloride 108 mmol/L (98-107) H 09/23/22 14:00 Carbon Dioxide 24.8 mmol/L (21-32) 09/23/22 14:00 BUN 5 mg/dL (7-18) L 09/23/22 14:00 Creatinine 0.85 mg/dL (0.55-1.02) 09/23/22 14:00 Est GFR (MDRD) Af Amer > 60 (>60) 09/23/22 14:00 Est GFR (MDRD) Non-Af > 60 (>60) 09/23/22 14:00 Glucose 181 mg/dL (65-99) H 09/23/22 14:00 POC Glucose (mg/dL) 242 mg/dL (65-99) H 09/23/22 16:04 Calcium 7.1 mg/dL (8.5-10.1) L 09/23/22 14:00 Corrected Calcium 8.4 mg/dL (8.5-10.1) L 09/23/22 04:10 Magnesium 2.5 mg/dL (2.0-2.9) 09/23/22 04:10 Total Bilirubin 0.60 mg/dL (0.2-1.0) 09/23/22 04:10 AST 14 Units/L (15-37) L 09/23/22 04:10 ALT 11 Units/L (12-78) L 09/23/22 04:10 Alkaline Phosphatase 71 Units/L (46-116) 09/23/22 04:10 Total Protein 5.1 g/dL (6.4-8.2) L 09/23/22 04:10 Albumin 2.2 g/dL (3.4-5.0) L 09/23/22 04:10 Globulin 2.9 g/dL (2.5-4.5) 09/23/22 04:10 Albumin/Globulin Ratio 0.8 Ratio (1.1-2.1) L 09/23/22 04:10 Lipase 73 Units/L (73-393) 09/22/22 01:25 Specimen Type Clean catch urine 09/22/22 03:40 Urine Color Yellow (YELLOW) 09/22/22 03:40 Urine Appearance Clear (CLEAR) 09/22/22 03:40 Urine pH 5.0 (5.0 - 8.0) 09/22/22 03:40 Ur Specific [place] 1.020 (1.000-1.030) 09/22/22 03:40 Urine Protein 2+ (NEGATIVE) 09/22/22 03:40 Urine Glucose (UA) 4+ (NEGATIVE) 09/22/22 03:40 Urine Ketones 4+ (NEGATIVE) 09/22/22 03:40 Urine Blood 1+ (NEGATIVE) 09/22/22 03:40 Urine Nitrite Negative (NEGATIVE) 09/22/22 03:40 Urine Bilirubin Negative (NEGATIVE) 09/22/22 03:40 Urine Urobilinogen Normal (NORMAL) 09/22/22 03:40 Ur Leukocyte Esterase Negative (NEGATIVE) 09/22/22 03:40 Urine RBC 3-5 /HPF (0-3) A 09/22/22 03:40 Urine WBC 0-2 /HPF (0-5) 09/22/22 03:40 Ur Squamous Epith Cells Moderate /HPF (NEGATIVE) 09/22/22 03:40 Urine Bacteria 1+ /HPF (NEGATIVE) 09/22/22 03:40 Hyaline Casts Few /LPF (NEGATIVE) 09/22/22 03:40 Granular Casts Few /LPF (NEGATIVE) 09/22/22 03:40 Urine Mucus Few /HPF (NEGATIVE) 09/22/22 03:40 Ur Culture Indicated? No/not indicated 09/22/22 03:40 Acetone, Semi-Quant Small (NEGATIVE) H 09/23/22 04:10 - Assessment and Plan 2: recurrent calculus cholecystitis . DM with resolving DKA. for lap rick after medical clearance during this admission or in the future .. - Problem Patient Problems: Patient Problems Hypokalemia (Acute) E87.6 Cholelithiasis (Acute) K80.20 Nausea & vomiting (Acute) R11.2 Dehydration (Acute) E86.0 DKA, type 2 (Acute) E11.10 Cholelithiasis (Acute) K80.20
[2022-09-23] MEDS: SNACK - Diabetic Appropriate PO SCH (20:14)
[2022-09-24] MEDS: NS + KCL 20 MEQ/L 1,000 ML IV SCH ×5 (00:33→17:53)
[2022-09-24 05:09] LABS: BASOPHILS # (AUTO) 0.1 X10^3/uL (0.0-0.1); BASOPHILS % (AUTO) 1.2 % (0.2-1.0); EOSINOPHILS # (AUTO) 0.2 x10^3/uL (0.0-0.2); EOSINOPHILS % (AUTO) 4.6 % (0.9-2.9); HEMATOCRIT 28.3 % (36.0-47.0); HEMOGLOBIN 9.9 g/dL (12.0-16.0); LYMPHOCYTES # (AUTO) 2.2 X10^3/uL (1.3-2.9); LYMPHOCYTES % (AUTO) 46.2 % (21.0-51.0); MEAN CORPUSCULAR HEMOGLOBIN 29.8 pg (27.0-34.0); MEAN CORPUSCULAR VOLUME 85.3 fL (80.0-100.0); MEAN PLATELET VOLUME 8.8 fL (7.4-11.0); MONOCYTES # (AUTO) 0.5 x10^3/uL (0.3-0.8); MONOCYTES % (AUTO) 9.4 % (0.0-13.0); NEUTROPHILS # (AUTO) 1.9 x10^3/uL (2.2-4.8); NEUTROPHILS % (AUTO) 38.6 % (42.0-75.0); RED BLOOD COUNT 3.31 X10^6/uL (3.5-5.4); RED CELL DISTRIBUTION WIDTH 12.4 % (11.6-16.5); WHITE BLOOD COUNT 4.9 X10^3/uL (3.6-10.0)
[2022-09-24] MEDS: ZOSYN VIAL 3.375 GRAMS 3.375 G in NS 100 ML IV 100 ML IV SCH ×3 (05:11→22:06)
[2022-09-24] MEDS: TUMS PO SCH ×3 (05:11→22:06)
[2022-09-24 05:24] LABS: ALANINE AMINOTRANSFERASE 11 Units/L (12-78); ALBUMIN 2.2 g/dL (3.4-5.0); ALKALINE PHOSPHATASE 69 Units/L (46-116); ASPARTATE AMINO TRANSFERASE 15 Units/L (15-37); BLOOD UREA NITROGEN 2 mg/dL (7-18); CHLORIDE 104 mmol/L (98-107); COR CA(FOR HYPOALB) 8.4 mg/dL (8.5-10.1); COR NA(FOR HYPERGLY) 138 mmol/L (136-145); CREATININE 0.66 mg/dL (0.55-1.02); SODIUM 135 mmol/L (136-145); eGFR NON BLACK RACES > 60 (>60)
[2022-09-24 05:37] LABS: SERUM ACETONE NEGATIVE (NEGATIVE)
[2022-09-24] MEDS: NovoLIN R (or HumuLIN R) SUBCUT PRN ×4 (05:45→22:07)
[2022-09-24] MEDS: ZOFRAN INJ 4 MG VIAL IVP PRN ×4 (06:48→22:08)
[2022-09-24] MEDS: PROTONIX INJ 40 MG VIAL IVP SCH ×2 (08:02→22:06)
[2022-09-24 11:02] LABS: CRYPTOSPORIDIUM PARVUM ANTIGEN NEGATIVE (NEGATIVE); GIARDIA LAMBLIA ANTIGEN NEGATIVE (NEGATIVE)
--- NOTE | 2022-09-24 13:03 | PCM.PROG ---
Progress Note - Progress Note for Day of Date of Exam: 09/24/22 - Subjective Subjective: the patient to 36-year-old black female who is admitted to ICU secondary to DKA and choleliathiasis. Patient is found to have campy and stool. Patient states that she is still nauseated today. States she pena feel better than she did yesterday. Labs have improved and insulin drip has been DC. State that she has been sweating. Denies any other complaints. - Past Medical Family Social History Past Med/Fam/Surg Hx: No changes since H&P Allergies: Allergies No Known Drug Allergies Allergy (Verified 09/13/22 11:53) - Review of Systems ROS: No change since H&P - Vital Signs and I&O's Vital Signs: Temperature 98.4 F Pulse Rate [Left] 125 Pulse Rate 112 Respiratory Rate 10 Blood Pressure [Right Arm] 94/65 Blood Pressure [Left Arm] 109/68 Blood Pressure [Right Arm] 99/62 Blood Pressure 142/92 O2 Sat by Pulse Oximetry 100 Intake and Output: Intake & Output 09/21/22 09/22/22 09/23/22 09/24/22 23:59 23:59 23:59 23:59 Intake Total 3494.7 / 3494.7 6685.3 / 6685.3 1185 / 1185 Output Total 2400 / 2400 2350 / 2350 Balance 1094.7 / 1094.7 6685.3 / 6685.3 -1165 / -1165 - Physical Exam Oriented: Normal, Place Eyes: Normal Ear: Normal Nose: Normal, Injected Throat: Normal Cardiovascular: Tachycardia. negative: Edema : Normal Auscultation: Bowel Sounds: Normal Tenderness: RUQ, Epigastric, Mild, Other (soft, flat abdomen with moderta epigastric and RUQ tendedrness . BS+) Skin: Normal Musculoskeletal: Normal Psychiatric: Normal Mood Description: Calm Speech Pattern: Clear, Appropriate - Laboratory and Diagnostics Result Diagrams: 09/24/22 04:10 09/24/22 04:10 Labs: 09/24/22 07:06 Stool Stool Culture - Preliminary 09/24/22 07:06 Stool - Final 09/23/22 10:45 Urine,Clean Catch Urine Culture - Preliminary Laboratory WBC 4.9 X10^3/uL (3.6-10.0) 09/24/22 04:10 RBC 3.31 X10^6/uL (3.5-5.4) L 09/24/22 04:10 Hgb 9.9 g/dL (12.0-16.0) L 09/24/22 04:10 Hct 28.3 % (36.0-47.0) L 09/24/22 04:10 MCV 85.3 fL (80.0-100.0) 09/24/22 04:10 MCH 29.8 pg (27.0-34.0) 09/24/22 04:10 MCHC 35.0 g/dL (33.0-35.0) 09/24/22 04:10 RDW 12.4 % (11.6-16.5) 09/24/22 04:10 Plt Count 150 X10^3/uL (150.0-450.0) 09/24/22 04:10 MPV 8.8 fL (7.4-11.0) 09/24/22 04:10 Neut % (Auto) 38.6 % (42.0-75.0) L 09/24/22 04:10 Lymph % (Auto) 46.2 % (21.0-51.0) 09/24/22 04:10 [place] % (Auto) 9.4 % (0.0-13.0) 09/24/22 04:10 Eos % (Auto) 4.6 % (0.9-2.9) H 09/24/22 04:10 Baso % (Auto) 1.2 % (0.2-1.0) H 09/24/22 04:10 Neut # (Auto) 1.9 x10^3/uL (2.2-4.8) L 09/24/22 04:10 Lymph # (Auto) 2.2 X10^3/uL (1.3-2.9) 09/24/22 04:10 [place] # (Auto) 0.5 x10^3/uL (0.3-0.8) 09/24/22 04:10 Eos # (Auto) 0.2 x10^3/uL (0.0-0.2) 09/24/22 04:10 Baso # (Auto) 0.1 X10^3/uL (0.0-0.1) 09/24/22 04:10 Absolute Nucleated RBC 0.0 /100WBC 09/24/22 04:10 Sample Site Rb 09/22/22 02:42 ABG pH 7.220 (7.35-7.45) L 09/22/22 02:42 ABG pCO2 21.0 mmHg (35.0-45.0) L 09/22/22 02:42 ABG pO2 127.0 mmHg (80.0-100.0) H 09/22/22 02:42 ABG HCO3 8.6 mmol/L (22-26) L* 09/22/22 02:42 ABG O2 Saturation 98.0 % (90-100) 09/22/22 02:42 ABG Base Excess -17.2 mmol/L (-2.0-2.0) L 09/22/22 02:42 Shaka Test N/a 09/22/22 02:42 A-a Gradient -4.0 mmHg 09/22/22 02:42 FiO2 21.0 09/22/22 02:42 Blood Gas Comments Jessie well ae 09/22/22 02:42 Sodium 135 mmol/L (136-145) L 09/24/22 04:10 Corrected Sodium 138 mmol/L (136-145) 09/24/22 04:10 Potassium 3.5 mmol/L (3.5-5.1) 09/24/22 04:10 Chloride 104 mmol/L (98-107) 09/24/22 04:10 Carbon Dioxide 26.0 mmol/L (21-32) 09/24/22 04:10 BUN 2 mg/dL (7-18) L 09/24/22 04:10 Creatinine 0.66 mg/dL (0.55-1.02) 09/24/22 04:10 Est GFR (MDRD) Af Amer > 60 (>60) 09/24/22 04:10 Est GFR (MDRD) Non-Af > 60 (>60) 09/24/22 04:10 Glucose 222 mg/dL (65-99) H 09/24/22 04:10 POC Glucose (mg/dL) 196 mg/dL (65-99) H 09/24/22 11:29 Calcium 7.0 mg/dL (8.5-10.1) L 09/24/22 04:10 Corrected Calcium 8.4 mg/dL (8.5-10.1) L 09/24/22 04:10 Magnesium 2.5 mg/dL (2.0-2.9) 09/23/22 04:10 Total Bilirubin 0.80 mg/dL (0.2-1.0) 09/24/22 04:10 AST 15 Units/L (15-37) 09/24/22 04:10 ALT 11 Units/L (12-78) L 09/24/22 04:10 Alkaline Phosphatase 69 Units/L (46-116) 09/24/22 04:10 Total Protein 5.0 g/dL (6.4-8.2) L 09/24/22 04:10 Albumin 2.2 g/dL (3.4-5.0) L 09/24/22 04:10 Globulin 2.8 g/dL (2.5-4.5) 09/24/22 04:10 Albumin/Globulin Ratio 0.8 Ratio (1.1-2.1) L 09/24/22 04:10 Lipase 73 Units/L (73-393) 09/22/22 01:25 Specimen Type Clean catch urine 09/22/22 03:40 Urine Color Yellow (YELLOW) 09/22/22 03:40 Urine Appearance Clear (CLEAR) 09/22/22 03:40 Urine pH 5.0 (5.0 - 8.0) 09/22/22 03:40 Ur Specific [place] 1.020 (1.000-1.030) 09/22/22 03:40 Urine Protein 2+ (NEGATIVE) 09/22/22 03:40 Urine Glucose (UA) 4+ (NEGATIVE) 09/22/22 03:40 Urine Ketones 4+ (NEGATIVE) 09/22/22 03:40 Urine Blood 1+ (NEGATIVE) 09/22/22 03:40 Urine Nitrite Negative (NEGATIVE) 09/22/22 03:40 Urine Bilirubin Negative (NEGATIVE) 09/22/22 03:40 Urine Urobilinogen Normal (NORMAL) 09/22/22 03:40 Ur Leukocyte Esterase Negative (NEGATIVE) 09/22/22 03:40 Urine RBC 3-5 /HPF (0-3) A 09/22/22 03:40 Urine WBC 0-2 /HPF (0-5) 09/22/22 03:40 Ur Squamous Epith Cells Moderate /HPF (NEGATIVE) 09/22/22 03:40 Urine Bacteria 1+ /HPF (NEGATIVE) 09/22/22 03:40 Hyaline Casts Few /LPF (NEGATIVE) 09/22/22 03:40 Granular Casts Few /LPF (NEGATIVE) 09/22/22 03:40 Urine Mucus Few /HPF (NEGATIVE) 09/22/22 03:40 Ur Culture Indicated? No/not indicated 09/22/22 03:40 Stl Occult Blood (IFOB) Positive (NEGATIVE) A 09/24/22 07:06 Stl C. diff Tox B Gene Negative (NEGATIVE) 09/24/22 07:06 Stl C. diff [id number] Presumptive negative (NEGATIVE) 09/24/22 07:06 Stool H. pylori Ag Negative (NEGATIVE) 09/24/22 07:06 Acetone, Semi-Quant Negative (NEGATIVE) 09/24/22 04:10 Cryptosporid parvum Ag Negative (NEGATIVE) 09/24/22 07:06 Giardia lamblia Ag Negative (NEGATIVE) 09/24/22 07:06 - Plan (1) Campylobacter gastrointestinal tract infection Status: Acute Plan: IV hydration, Monitor N/V/D. Probiotics. (2) Diabetes Status: Acute Qualifiers: Diabetes mellitus type: type 2 Diabetes mellitus complication status: with hyperosmolarity Diabetes mellitus complication detail: without coma Plan: Monitor BS. Insulin coverage as needed. Monitor for recurrent DKA. (3) Hypokalemia Status: Acute Plan: Supplement as needed (4) Cholecystitis, acute with cholelithiasis Status: Chronic Plan: Surgical Consult for possible Lap [place] inpatient vs outpatient.
[2022-09-24] MEDS: TORADOL 15 MG VIAL IVP PRN (13:30)
[2022-09-24] MEDS: SNACK - Diabetic Appropriate PO SCH (20:16)
[2022-09-25] MEDS: NS + KCL 20 MEQ/L 1,000 ML IV SCH (02:08)
[2022-09-25 04:30] LABS: BASOPHILS # (AUTO) 0.1 X10^3/uL (0.0-0.1); BASOPHILS % (AUTO) 1.3 % (0.2-1.0); EOSINOPHILS # (AUTO) 0.1 x10^3/uL (0.0-0.2); EOSINOPHILS % (AUTO) 3.3 % (0.9-2.9); HEMOGLOBIN 9.8 g/dL (12.0-16.0); LYMPHOCYTES # (AUTO) 2.2 X10^3/uL (1.3-2.9); MEAN CORPUSCULAR HEMOGLOBIN 29.2 pg (27.0-34.0); MEAN CORPUSCULAR HGB CONC 33.6 g/dL (33.0-35.0); MEAN CORPUSCULAR VOLUME 86.7 fL (80.0-100.0); MONOCYTES # (AUTO) 0.4 x10^3/uL (0.3-0.8); MONOCYTES % (AUTO) 9.5 % (0.0-13.0); NEUTROPHILS # (AUTO) 1.5 x10^3/uL (2.2-4.8); NEUTROPHILS % (AUTO) 35.9 % (42.0-75.0); RED BLOOD COUNT 3.35 X10^6/uL (3.5-5.4); RED CELL DISTRIBUTION WIDTH 12.7 % (11.6-16.5); WHITE BLOOD COUNT 4.3 X10^3/uL (3.6-10.0)
[2022-09-25 04:40] LABS: ALANINE AMINOTRANSFERASE 12 Units/L (12-78); ALBUMIN 2.1 g/dL (3.4-5.0); ALKALINE PHOSPHATASE 70 Units/L (46-116); ASPARTATE AMINO TRANSFERASE 12 Units/L (15-37); BLOOD UREA NITROGEN 1 mg/dL (7-18); CALCIUM 7.2 mg/dL (8.5-10.1); CARBON DIOXIDE 29.2 mmol/L (21-32); CHLORIDE 105 mmol/L (98-107); COR CA(FOR HYPOALB) 8.7 mg/dL (8.5-10.1); COR NA(FOR HYPERGLY) 139 mmol/L (136-145); CREATININE 0.57 mg/dL (0.55-1.02); SODIUM 137 mmol/L (136-145); TOTAL PROTEIN 4.9 g/dL (6.4-8.2); eGFR NON BLACK RACES > 60 (>60)
[2022-09-25] MEDS: TUMS PO SCH ×2 (04:59→13:27)
[2022-09-25] MEDS: ZOSYN VIAL 3.375 GRAMS 3.375 G in NS 100 ML IV 100 ML IV SCH ×2 (05:00→13:59)
[2022-09-25] MEDS: ZOFRAN INJ 4 MG VIAL IVP PRN (05:19)
[2022-09-25] MEDS: PROTONIX INJ 40 MG VIAL IVP SCH (08:57)
[2022-09-25] MEDS: NovoLIN R (or HumuLIN R) SUBCUT PRN (11:41)
[2022-09-25 15:25] VITALS: BP 97/69
== END 2022-09-25 15:31 | disposition home or self-care (01) | DRG 638 ==
LOC: ER 00:44 → ICU 04:27
PROVIDERS: ADMIT Internal Medicine; ATTEND Internal Medicine
DX: R10.13 Epigastric pain; A04.5 Campylobacter enteritis; E86.0 Dehydration; E11.10 Type 2 diabetes mellitus with ketoacidosis without coma; R00.0 Tachycardia, unspecified; R11.2 Nausea with vomiting, unspecified; R19.7 Diarrhea, unspecified; K80.20 Calculus of gallbladder without cholecystitis without obstruction; N13.30 Unspecified hydronephrosis

== ENCOUNTER 2022-10-19 15:46 | Observation (INO) ==
[2022-10-19] MEDS: D5 1/2 NS 1,000 ML 1,000 ML IV SCH (17:31)
[2022-10-19] MEDS: PROTONIX INJ 40 MG VIAL IVP SCH (17:32)
[2022-10-19 18:03] LABS: BASOPHILS % (AUTO) 0.8 % (0.2-1.0); EOSINOPHILS # (AUTO) 0.1 x10^3/uL (0.0-0.2); EOSINOPHILS % (AUTO) 1.3 % (0.9-2.9); HEMATOCRIT 38.8 % (36.0-47.0); HEMOGLOBIN 12.8 g/dL (12.0-16.0); LYMPHOCYTES # (AUTO) 2.4 X10^3/uL (1.3-2.9); LYMPHOCYTES % (AUTO) 42.7 % (21.0-51.0); MEAN CORPUSCULAR HEMOGLOBIN 28.7 pg (27.0-34.0); MEAN CORPUSCULAR HGB CONC 32.9 g/dL (33.0-35.0); MEAN CORPUSCULAR VOLUME 87.3 fL (80.0-100.0); MEAN PLATELET VOLUME 7.9 fL (7.4-11.0); MONOCYTES # (AUTO) 0.5 x10^3/uL (0.3-0.8); NEUTROPHILS # (AUTO) 2.7 x10^3/uL (2.2-4.8); NEUTROPHILS % (AUTO) 47.2 % (42.0-75.0); RED BLOOD COUNT 4.45 X10^6/uL (3.5-5.4); RED CELL DISTRIBUTION WIDTH 12.8 % (11.6-16.5); WHITE BLOOD COUNT 5.7 X10^3/uL (3.6-10.0)
[2022-10-19 18:12] LABS: ALANINE AMINOTRANSFERASE 19 Units/L (12-78); ALBUMIN 3.4 g/dL (3.4-5.0); ALKALINE PHOSPHATASE 108 Units/L (46-116); AMYLASE 32 Units/L (25-115); ASPARTATE AMINO TRANSFERASE 14 Units/L (15-37); BLOOD UREA NITROGEN 11 mg/dL (7-18); CALCIUM 8.7 mg/dL (8.5-10.1); CARBON DIOXIDE 27.7 mmol/L (21-32); CHLORIDE 97 mmol/L (98-107); COR NA(FOR HYPERGLY) 139 mmol/L (136-145); LIPASE 78 Units/L (73-393); SODIUM 137 mmol/L (136-145); TOTAL PROTEIN 7.6 g/dL (6.4-8.2); eGFR NON BLACK RACES > 60 (>60)
[2022-10-19] MEDS ORDERED: POTASSIUM CHL 40 MEQ/NS 0.45% 500 ML IV PRN (18:18)
[2022-10-19] MEDS ORDERED: KLOR-CON PO PRN (18:18)
[2022-10-19] MEDS ORDERED: POTASSIUM CHL 60 MEQ/NS 0.45% 500 ML IV PRN (18:18)
[2022-10-19] MEDS ORDERED: MICRO K EXTEN CAP 10 MEQ PO PRN (18:18)
[2022-10-19] MEDS ORDERED: POTASSIUM CHLORIDE LIQ 20 MEQ UDC PO PRN (18:18)
[2022-10-19 18:26] LABS: HEMOGLOBIN A1C 9.9 %
[2022-10-19] MEDS: MAGNESIUM SULFATE 1 GRAM/100 mL PREMIX 1 G/100 ML BAG IV PRN ×2 (18:55→19:34)
[2022-10-19] MEDS ORDERED: NS 500 ML IV 500 ML IV ONE (19:24)
[2022-10-19] MEDS: K-RIDER 10 MEQ/NS 100 ML 10 MEQ/100 ML BAG IV PRN ×2 (19:36→21:18)
[2022-10-19] MEDS ORDERED: NS 500 ML IV 500 ML IV PRN (19:36)
[2022-10-19] MEDS: MORPHINE SULFATE INJ 2 MG INJ IVP PRN (19:37)
[2022-10-20] MEDS: K-RIDER 10 MEQ/NS 100 ML 10 MEQ/100 ML BAG IV PRN ×4 (00:36→17:20)
[2022-10-20] MEDS: D5 1/2 NS 1,000 ML 1,000 ML IV SCH ×5 (01:56→20:22)
[2022-10-20] MEDS ORDERED: ZOFRAN INJ 4 MG VIAL ONE (04:49)
[2022-10-20 05:02] LABS: BASOPHILS # (AUTO) 0.1 X10^3/uL (0.0-0.1); EOSINOPHILS # (AUTO) 0.1 x10^3/uL (0.0-0.2); EOSINOPHILS % (AUTO) 2.6 % (0.9-2.9); HEMATOCRIT 33.4 % (36.0-47.0); HEMOGLOBIN 11.4 g/dL (12.0-16.0); LYMPHOCYTES # (AUTO) 2.5 X10^3/uL (1.3-2.9); MEAN CORPUSCULAR HEMOGLOBIN 29.3 pg (27.0-34.0); MEAN CORPUSCULAR HGB CONC 34.2 g/dL (33.0-35.0); MEAN CORPUSCULAR VOLUME 85.7 fL (80.0-100.0); MEAN PLATELET VOLUME 8.4 fL (7.4-11.0); MONOCYTES # (AUTO) 0.5 x10^3/uL (0.3-0.8); MONOCYTES % (AUTO) 8.5 % (0.0-13.0); NEUTROPHILS # (AUTO) 2.5 x10^3/uL (2.2-4.8); NEUTROPHILS % (AUTO) 43.9 % (42.0-75.0); RED CELL DISTRIBUTION WIDTH 13.1 % (11.6-16.5); WHITE BLOOD COUNT 5.7 X10^3/uL (3.6-10.0)
[2022-10-20 05:23] LABS: ALANINE AMINOTRANSFERASE 16 Units/L (12-78); ALBUMIN 2.9 g/dL (3.4-5.0); ALKALINE PHOSPHATASE 96 Units/L (46-116); ASPARTATE AMINO TRANSFERASE 14 Units/L (15-37); BLOOD UREA NITROGEN 7 mg/dL (7-18); CALCIUM 8.1 mg/dL (8.5-10.1); CARBON DIOXIDE 26.3 mmol/L (21-32); CHLORIDE 98 mmol/L (98-107); COR NA(FOR HYPERGLY) 137 mmol/L (136-145); CREATININE 0.81 mg/dL (0.55-1.02); MAGNESIUM 1.9 mg/dL (2.0-2.9); SODIUM 134 mmol/L (136-145); TOTAL PROTEIN 6.5 g/dL (6.4-8.2); eGFR NON BLACK RACES > 60 (>60)
[2022-10-20] MEDS: ZOFRAN INJ 4 MG VIAL IVP PRN ×3 (05:23→20:50)
[2022-10-20] MEDS: MORPHINE SULFATE INJ 2 MG INJ IVP PRN ×4 (05:24→21:35)
[2022-10-20] MEDS: MAGNESIUM SULFATE 1 GRAM/100 mL PREMIX 1 G/100 ML BAG IV PRN ×2 (05:39→06:35)
--- NOTE | 2022-10-20 05:42 | RAD ---
HISTORYABD PAIN S/P LAP EDWIGE GBSTUDYKUBCOMPARISONNoneFINDIN GSEvaluation of the abdomen demonstrates a normal bowel gas pattern. There is a moderate amount of fecal material throughout the colon. There are surgical clips in the right upper quadrant. No pathological soft tissue mass or calcification can be observed. The bony structures are grossly intact.IMPRESSIONNo evidence for acute abdominal pathology identified.Electronically signed by: Abisai Foreman (Oct 20, 2022 05:40:11)
[2022-10-20] MEDS: PROTONIX INJ 40 MG VIAL IVP SCH ×2 (09:30→20:49)
--- NOTE | 2022-10-20 11:53 | DR.PROGNOT ---
HOSPITAL PROGRESS NOTE Progress Note for Day of: Progress Note Date: 10/20/22 Chief Complaint Chief Complaint: still having severe nausea and occasional vomiting . K is still low 2.9 .. Mg 1.9 normal LFT and Bilirubin .. normal Lipase , Amylase .. Past Medical Family Social History Allergies: Allergies No Known Drug Allergies Allergy (Verified 10/08/22 06:52) Vital Signs Vital Signs: Temperature 98.4 F Pulse Rate [Bilateral Radial] 109 Respiratory Rate 17 Blood Pressure [Left Arm] 97/65 Blood Pressure [Right Arm] 128/83 O2 Sat by Pulse Oximetry 100 Physical Exam GI:Palpation: Other (soft abdomen with mild epigastric tenderness .. BS+) Speech Pattern: Clear and Appropriate Laboratory and Diagnostics Result Diagrams: 10/20/22 04:00 10/20/22 04:00 Labs: Laboratory WBC 5.7 X10^3/uL (3.6-10.0) 10/20/22 04:00 RBC 3.90 X10^6/uL (3.5-5.4) 10/20/22 04:00 Hgb 11.4 g/dL (12.0-16.0) L 10/20/22 04:00 Hct 33.4 % (36.0-47.0) L 10/20/22 04:00 MCV 85.7 fL (80.0-100.0) 10/20/22 04:00 MCH 29.3 pg (27.0-34.0) 10/20/22 04:00 MCHC 34.2 g/dL (33.0-35.0) 10/20/22 04:00 RDW 13.1 % (11.6-16.5) 10/20/22 04:00 Plt Count 313 X10^3/uL (150.0-450.0) 10/20/22 04:00 MPV 8.4 fL (7.4-11.0) 10/20/22 04:00 Neut % (Auto) 43.9 % (42.0-75.0) 10/20/22 04:00 Lymph % (Auto) 44.0 % (21.0-51.0) 10/20/22 04:00 [place] % (Auto) 8.5 % (0.0-13.0) 10/20/22 04:00 Eos % (Auto) 2.6 % (0.9-2.9) 10/20/22 04:00 Baso % (Auto) 1.0 % (0.2-1.0) 10/20/22 04:00 Neut # (Auto) 2.5 x10^3/uL (2.2-4.8) 10/20/22 04:00 Lymph # (Auto) 2.5 X10^3/uL (1.3-2.9) 10/20/22 04:00 [place] # (Auto) 0.5 x10^3/uL (0.3-0.8) 10/20/22 04:00 Eos # (Auto) 0.1 x10^3/uL (0.0-0.2) 10/20/22 04:00 Baso # (Auto) 0.1 X10^3/uL (0.0-0.1) 10/20/22 04:00 Absolute Nucleated RBC 0.0 /100WBC 10/20/22 04:00 Sodium 134 mmol/L (136-145) L 10/20/22 04:00 Corrected Sodium 137 mmol/L (136-145) 10/20/22 04:00 Potassium 2.9 mmol/L (3.5-5.1) L* 10/20/22 04:00 Chloride 98 mmol/L (98-107) 10/20/22 04:00 Carbon Dioxide 26.3 mmol/L (21-32) 10/20/22 04:00 BUN 7 mg/dL (7-18) 10/20/22 04:00 Creatinine 0.81 mg/dL (0.55-1.02) 10/20/22 04:00 Est GFR (MDRD) Af Amer > 60 (>60) 10/20/22 04:00 Est GFR (MDRD) Non-Af > 60 (>60) 10/20/22 04:00 Glucose 228 mg/dL (65-99) H 10/20/22 04:00 POC Glucose (mg/dL) 290 mg/dL (65-99) H 10/20/22 11:19 Hemoglobin A1c 9.9 % 10/19/22 17:30 Calcium 8.1 mg/dL (8.5-10.1) L 10/20/22 04:00 Corrected Calcium 9.0 mg/dL (8.5-10.1) 10/20/22 04:00 Magnesium 1.9 mg/dL (2.0-2.9) L 10/20/22 04:00 Total Bilirubin 0.50 mg/dL (0.2-1.0) 10/20/22 04:00 AST 14 Units/L (15-37) L 10/20/22 04:00 ALT 16 Units/L (12-78) 10/20/22 04:00 Alkaline Phosphatase 96 Units/L (46-116) 10/20/22 04:00 Total Protein 6.5 g/dL (6.4-8.2) 10/20/22 04:00 Albumin 2.9 g/dL (3.4-5.0) L 10/20/22 04:00 Globulin 3.6 g/dL (2.5-4.5) 10/20/22 04:00 Albumin/Globulin Ratio 0.8 Ratio (1.1-2.1) L 10/20/22 04:00 Amylase 32 Units/L (25-115) 10/19/22 17:30 Lipase 78 Units/L (73-393) 10/19/22 17:30 Assessment and Plan 1: severe nausea , vomiting . 2: s/p lap rick 3: dehydration 4: hypokalemia 5: DM
[2022-10-20] MEDS: NovoLIN R (or HumuLIN R) SC PRN ×2 (12:46→17:21)
[2022-10-20] MEDS: K-DUR TAB 20 MEQ PO PRN ×2 (17:20→21:32)
[2022-10-20] MEDS: LANTUS SC SCH (20:47)
[2022-10-20 21:33] LABS: BILIRUBIN,URINE NEGATIVE (NEGATIVE); BLOOD/HEMOGLOBIN,URINE NEGATIVE (NEGATIVE); GLUCOSE, URINE 3+ (NEGATIVE); KETONES,URINE 3+ (NEGATIVE); LEUKOCYTE ESTERASE ,URINE 1+ (NEGATIVE); NITRITES,URINE NEGATIVE (NEGATIVE); PROTEIN,URINE NEGATIVE (NEGATIVE); UROBILINOGEN,URINE NORMAL (NORMAL)
[2022-10-20] MEDS: SNACK - Diabetic Appropriate PO SCH (21:38)
[2022-10-20 21:46] LABS: APPEARANCE,URINE CLEAR (CLEAR); COLOR,URINE PALE YELLOW (YELLOW)
[2022-10-20 22:08] LABS: BACTERIA,URINE 2+ /HPF (NEGATIVE); RBC,URINE 0-2 /HPF (0-3); SQUAMOUS EPITHELIAL CELL,UR FEW /HPF (NEGATIVE); YEAST,URINE FEW /HPF (NEGATIVE)
[2022-10-21] MEDS: D5 1/2 NS 1,000 ML 1,000 ML IV SCH ×2 (02:17→05:14)
[2022-10-21 05:18] LABS: BASOPHILS # (AUTO) 0.1 X10^3/uL (0.0-0.1); BASOPHILS % (AUTO) 1.1 % (0.2-1.0); EOSINOPHILS # (AUTO) 0.1 x10^3/uL (0.0-0.2); EOSINOPHILS % (AUTO) 2.3 % (0.9-2.9); HEMATOCRIT 33.2 % (36.0-47.0); HEMOGLOBIN 11.2 g/dL (12.0-16.0); LYMPHOCYTES # (AUTO) 1.7 X10^3/uL (1.3-2.9); LYMPHOCYTES % (AUTO) 28.3 % (21.0-51.0); MEAN CORPUSCULAR HEMOGLOBIN 29.2 pg (27.0-34.0); MEAN CORPUSCULAR HGB CONC 33.8 g/dL (33.0-35.0); MEAN CORPUSCULAR VOLUME 86.3 fL (80.0-100.0); MEAN PLATELET VOLUME 8.5 fL (7.4-11.0); MONOCYTES # (AUTO) 0.6 x10^3/uL (0.3-0.8); MONOCYTES % (AUTO) 9.5 % (0.0-13.0); NEUTROPHILS # (AUTO) 3.6 x10^3/uL (2.2-4.8); NEUTROPHILS % (AUTO) 58.8 % (42.0-75.0); RED BLOOD COUNT 3.84 X10^6/uL (3.5-5.4); RED CELL DISTRIBUTION WIDTH 12.8 % (11.6-16.5); WHITE BLOOD COUNT 6.1 X10^3/uL (3.6-10.0)
[2022-10-21 05:32] LABS: ALANINE AMINOTRANSFERASE 15 Units/L (12-78); ALBUMIN 2.7 g/dL (3.4-5.0); ALKALINE PHOSPHATASE 100 Units/L (46-116); ASPARTATE AMINO TRANSFERASE 14 Units/L (15-37); BLOOD UREA NITROGEN 3 mg/dL (7-18); CARBON DIOXIDE 27.6 mmol/L (21-32); CHLORIDE 103 mmol/L (98-107); COR NA(FOR HYPERGLY) 140 mmol/L (136-145); CREATININE 0.68 mg/dL (0.55-1.02); MAGNESIUM 1.8 mg/dL (2.0-2.9); SODIUM 136 mmol/L (136-145); TOTAL PROTEIN 6.3 g/dL (6.4-8.2); eGFR NON BLACK RACES > 60 (>60)
[2022-10-21] MEDS: NovoLIN R (or HumuLIN R) SC PRN ×2 (05:43→16:17)
[2022-10-21] MEDS ORDERED: PHENERGAN INJ 25 MG IM PRN (07:44)
[2022-10-21] MEDS: MILK OF MAGNESIA PO ONE ×2 (08:51→11:19)
[2022-10-21] MEDS: PROTONIX INJ 40 MG VIAL IVP SCH ×2 (08:51→20:11)
[2022-10-21] MEDS: ZOFRAN INJ 4 MG VIAL IVP PRN (08:52)
[2022-10-21] MEDS: MORPHINE SULFATE INJ 2 MG INJ IVP PRN ×3 (08:52→20:11)
[2022-10-21] MEDS: K-DUR TAB 20 MEQ PO PRN (08:53)
[2022-10-21] MEDS: NS 1,000 ML IV 1,000 ML IV SCH ×3 (08:53→23:00)
--- NOTE | 2022-10-21 14:03 | RAD ---
HISTORY:Abdominal painStudy: KUBComparison:2 days priorFindings:Cholecystectomy clips are noted. Bowel gas pattern is normal. The soft tissues are intact. No radiopaque renal stones identified.IMPRESSION:Negative KUB.Electronically signed by: DEJAN JOHNSON (Oct 21, 2022 14:01:19)
--- NOTE | 2022-10-21 14:38 | DR.PROGNOT ---
HOSPITAL PROGRESS NOTE Progress Note for Day of: Progress Note Date: 10/21/22 Chief Complaint Chief Complaint: still having severe nausea and occasional vomiting . K is still low 3.4.. Mg 1.9 . BS 227 normal LFT and Bilirubin .. normal Lipase , Amylase .. Past Medical Family Social History Allergies: Allergies No Known Drug Allergies Allergy (Verified 10/08/22 06:52) Vital Signs Vital Signs: Temperature 98.3 F Pulse Rate [Apical] 110 Pulse Rate [Bilateral Radial] 115 Respiratory Rate 19 Blood Pressure [Left Arm] 118/81 Blood Pressure [Right Arm] 128/83 O2 Sat by Pulse Oximetry 100 Physical Exam GI:Palpation: Other (soft abdomen with mild epigastric tenderness .. BS+) Speech Pattern: Clear and Appropriate Laboratory and Diagnostics Result Diagrams: 10/21/22 04:10 10/21/22 04:10 Labs: 10/20/22 20:52 Urine,Clean Catch Urine Culture - Preliminary Laboratory WBC 6.1 X10^3/uL (3.6-10.0) 10/21/22 04:10 RBC 3.84 X10^6/uL (3.5-5.4) 10/21/22 04:10 Hgb 11.2 g/dL (12.0-16.0) L 10/21/22 04:10 Hct 33.2 % (36.0-47.0) L 10/21/22 04:10 MCV 86.3 fL (80.0-100.0) 10/21/22 04:10 MCH 29.2 pg (27.0-34.0) 10/21/22 04:10 MCHC 33.8 g/dL (33.0-35.0) 10/21/22 04:10 RDW 12.8 % (11.6-16.5) 10/21/22 04:10 Plt Count 307 X10^3/uL (150.0-450.0) 10/21/22 04:10 MPV 8.5 fL (7.4-11.0) 10/21/22 04:10 Neut % (Auto) 58.8 % (42.0-75.0) 10/21/22 04:10 Lymph % (Auto) 28.3 % (21.0-51.0) 10/21/22 04:10 [place] % (Auto) 9.5 % (0.0-13.0) 10/21/22 04:10 Eos % (Auto) 2.3 % (0.9-2.9) 10/21/22 04:10 Baso % (Auto) 1.1 % (0.2-1.0) H 10/21/22 04:10 Neut # (Auto) 3.6 x10^3/uL (2.2-4.8) 10/21/22 04:10 Lymph # (Auto) 1.7 X10^3/uL (1.3-2.9) 10/21/22 04:10 [place] # (Auto) 0.6 x10^3/uL (0.3-0.8) 10/21/22 04:10 Eos # (Auto) 0.1 x10^3/uL (0.0-0.2) 10/21/22 04:10 Baso # (Auto) 0.1 X10^3/uL (0.0-0.1) 10/21/22 04:10 Absolute Nucleated RBC 0.0 /100WBC 10/21/22 04:10 Sodium 136 mmol/L (136-145) 10/21/22 04:10 Corrected Sodium 140 mmol/L (136-145) 10/21/22 04:10 Potassium 3.4 mmol/L (3.5-5.1) L 10/21/22 04:10 Chloride 103 mmol/L (98-107) 10/21/22 04:10 Carbon Dioxide 27.6 mmol/L (21-32) 10/21/22 04:10 BUN 3 mg/dL (7-18) L 10/21/22 04:10 Creatinine 0.68 mg/dL (0.55-1.02) 10/21/22 04:10 Est GFR (MDRD) Af Amer > 60 (>60) 10/21/22 04:10 Est GFR (MDRD) Non-Af > 60 (>60) 10/21/22 04:10 Glucose 277 mg/dL (65-99) H 10/21/22 04:10 POC Glucose (mg/dL) 173 mg/dL (65-99) H 10/21/22 11:25 Hemoglobin A1c 9.9 % 10/19/22 17:30 Calcium 8.0 mg/dL (8.5-10.1) L 10/21/22 04:10 Corrected Calcium 9.0 mg/dL (8.5-10.1) 10/21/22 04:10 Magnesium 1.8 mg/dL (2.0-2.9) L 10/21/22 04:10 Total Bilirubin 0.40 mg/dL (0.2-1.0) 10/21/22 04:10 AST 14 Units/L (15-37) L 10/21/22 04:10 ALT 15 Units/L (12-78) 10/21/22 04:10 Alkaline Phosphatase 100 Units/L (46-116) 10/21/22 04:10 Total Protein 6.3 g/dL (6.4-8.2) L 10/21/22 04:10 Albumin 2.7 g/dL (3.4-5.0) L 10/21/22 04:10 Globulin 3.6 g/dL (2.5-4.5) 10/21/22 04:10 Albumin/Globulin Ratio 0.8 Ratio (1.1-2.1) L 10/21/22 04:10 Amylase 32 Units/L (25-115) 10/19/22 17:30 Lipase 78 Units/L (73-393) 10/19/22 17:30 Specimen Type Clean catch urine 10/20/22 20:52 Urine Color Pale yellow (YELLOW) 10/20/22 20:52 Urine Appearance Clear (CLEAR) 10/20/22 20:52 Urine pH 6.0 (5.0 - 8.0) 10/20/22 20:52 Ur Specific [place] 1.015 (1.000-1.030) 10/20/22 20:52 Urine Protein Negative (NEGATIVE) 10/20/22 20:52 Urine Glucose (UA) 3+ (NEGATIVE) 10/20/22 20:52 Urine Ketones 3+ (NEGATIVE) 10/20/22 20:52 Urine Blood Negative (NEGATIVE) 10/20/22 20:52 Urine Nitrite Negative (NEGATIVE) 10/20/22 20:52 Urine Bilirubin Negative (NEGATIVE) 10/20/22 20:52 Urine Acetone Moderate (NEGATIVE) H 10/20/22 20:52 Urine Urobilinogen Normal (NORMAL) 10/20/22 20:52 Ur Leukocyte Esterase 1+ (NEGATIVE) 10/20/22 20:52 Urine RBC 0-2 /HPF (0-3) 10/20/22 20:52 Urine WBC 0-2 /HPF (0-5) 10/20/22 20:52 Ur Squamous Epith Cells Few /HPF (NEGATIVE) 10/20/22 20:52 Urine Bacteria 2+ /HPF (NEGATIVE) 10/20/22 20:52 Urine Mucus Few /HPF (NEGATIVE) 10/20/22 20:52 Urine Yeast Few /HPF (NEGATIVE) 10/20/22 20:52 Ur Culture Indicated? Yes/culture set up 10/20/22 20:52 Acetone, Semi-Quant Small (NEGATIVE) H 10/21/22 04:10 Assessment and Plan 1: severe nausea , vomiting . 2: s/p lap rick 3: dehydration 4: hypokalemia 5: DM .. same IVF , control of nausea and D/C in DM .
[2022-10-21 15:14] VITALS: BMI 20.2
[2022-10-21] MEDS: MAGNESIUM SULFATE 1 GRAM/100 mL PREMIX 1 G/100 ML BAG IV PRN ×2 (18:42→20:10)
[2022-10-21] MEDS: SNACK - Diabetic Appropriate PO SCH (20:10)
[2022-10-21] MEDS: LANTUS SC SCH (20:11)
[2022-10-22 05:08] LABS: BASOPHILS # (AUTO) 0.1 X10^3/uL (0.0-0.1); BASOPHILS % (AUTO) 1.2 % (0.2-1.0); EOSINOPHILS # (AUTO) 0.1 x10^3/uL (0.0-0.2); HEMATOCRIT 29.8 % (36.0-47.0); HEMOGLOBIN 10.2 g/dL (12.0-16.0); LYMPHOCYTES # (AUTO) 2.4 X10^3/uL (1.3-2.9); LYMPHOCYTES % (AUTO) 48.3 % (21.0-51.0); MEAN CORPUSCULAR HEMOGLOBIN 29.4 pg (27.0-34.0); MEAN CORPUSCULAR HGB CONC 34.1 g/dL (33.0-35.0); MEAN CORPUSCULAR VOLUME 86.1 fL (80.0-100.0); MEAN PLATELET VOLUME 8.5 fL (7.4-11.0); MONOCYTES # (AUTO) 0.4 x10^3/uL (0.3-0.8); MONOCYTES % (AUTO) 7.4 % (0.0-13.0); NEUTROPHILS % (AUTO) 40.1 % (42.0-75.0); RED BLOOD COUNT 3.46 X10^6/uL (3.5-5.4); RED CELL DISTRIBUTION WIDTH 12.7 % (11.6-16.5); WHITE BLOOD COUNT 4.9 X10^3/uL (3.6-10.0)
[2022-10-22 05:13] LABS: ALANINE AMINOTRANSFERASE 15 Units/L (12-78); ALBUMIN 2.5 g/dL (3.4-5.0); ALKALINE PHOSPHATASE 86 Units/L (46-116); ASPARTATE AMINO TRANSFERASE 11 Units/L (15-37); BLOOD UREA NITROGEN 3 mg/dL (7-18); CALCIUM 7.9 mg/dL (8.5-10.1); CARBON DIOXIDE 31.1 mmol/L (21-32); CHLORIDE 106 mmol/L (98-107); COR CA(FOR HYPOALB) 9.1 mg/dL (8.5-10.1); COR NA(FOR HYPERGLY) 143 mmol/L (136-145); CREATININE 0.67 mg/dL (0.55-1.02); MAGNESIUM 1.9 mg/dL (2.0-2.9); SODIUM 140 mmol/L (136-145); TOTAL PROTEIN 5.7 g/dL (6.4-8.2); eGFR NON BLACK RACES > 60 (>60)
[2022-10-22] MEDS: MAGNESIUM SULFATE 1 GRAM/100 mL PREMIX 1 G/100 ML BAG IV PRN ×2 (05:33→08:22)
[2022-10-22] MEDS: NovoLIN R (or HumuLIN R) SC PRN (05:37)
[2022-10-22] MEDS: K-DUR TAB 20 MEQ PO PRN (06:10)
[2022-10-22] MEDS: PROTONIX INJ 40 MG VIAL IVP SCH (08:21)
[2022-10-22 11:14] VITALS: BP 90/59
== END 2022-10-22 13:40 | disposition home or self-care (01) ==
LOC: ICU
PROVIDERS: ADMIT Surgery; ATTEND Surgery
DX: B96.29 Other Escherichia coli [E. coli] as the cause of diseases classified elsewhere; Z90.49 Acquired absence of other specified parts of digestive tract; R53.1 Weakness; E87.6 Hypokalemia; E11.65 Type 2 diabetes mellitus with hyperglycemia; E86.0 Dehydration; R11.2 Nausea with vomiting, unspecified; R10.84 Generalized abdominal pain

== ENCOUNTER 2022-11-01 11:36 | Observation (INO) ==
[2022-11-01] MEDS ORDERED: BENTYL I.M. INJ 10 MG IM ONE (12:19)
[2022-11-01] MEDS ORDERED: LEVSIN/MAALOX/LIDOC VISC PO PRN (12:19)
--- NOTE | 2022-11-01 12:29 | DR.H&P ---
H&P - History & Physical for Day of: H&P Date: 11/01/22 - Chief Complaint Chief Complaint: WEAKNESS, N/V - History of Present Illness History of Present Illness: PT IS 36 BF, DIRECT ADMIT FROM DR GUILLEN OFFICE WITH INTRACTABLE NAUSEA AND VOMITING, UPPER ABDOMINAL PAIN AND DEHYDRATION. PT IS DIABETIC AND REPORTS SHE HAD LOST 20LBS THIS PAST MONTH. PT HAS REFLUX NOT CONTROLLED WITH PO PROTONIX. PT BS IN OFFICE 234 THIS AM. PLAN TO ADMIT FOR IV HYDRATION AND TREATMENT OF ACUTE ILLNESS. - Past Medical History Past Medical History: Diabetes, GERD - Past Surgical History Surgical History: , Cholecystectomy - Family History Family Medical History: Diabetes Mellitus, Cancer, Hypertension - Social History Does patient currently use any type of tobacco product: No Have you used tobacco products in the last 12 months: No Type of Tobacco Use: None Does any household member use tobacco: No Alcohol Use: None Drug Use: None - Medications Home Medications: No Known Drug Allergies Allergy (Unknown, Unverified 10/08/22 06:52) - Review of Systems Constitutional: Weakness Eyes: No Symptoms Reported ENT: No Symptoms Reported Respiratory: No Symptoms Reported Cardiovascular: No Symptoms Reported Gastrointestinal: Nausea, Vomiting, Abdominal Pain Genitourinary: No Symptoms Reported Musculoskeletal: No Symptoms Reported Skin: No Symptoms Reported Neurological: No Symptoms Reported - Physical Exam Vital Signs: Blood Pressure [Left Arm] 90/59 Blood Pressure [Right Arm] 128/83 Blood Pressure [Left Arm] 109/68 Blood Pressure [Right Arm] 99/62 Blood Pressure 90/59 Oriented: Normal Eyes: Normal Ear: Normal Nose: Normal Throat: Normal Respiratory: RLL Diminished, LLL Diminished Cardiovascular: Tachycardia : Normal Auscultation: Bowel Sounds: Increased Palpation: Normal Tenderness: Epigastric Skin: Decreased Turgur Musculoskeletal: Normal Psychiatric: Normal Speech Pattern: Clear, Appropriate - Assessment/Plan (1) Acute gastroenteritis Status: Acute Plan: ADMIT, GENTLE IV HYDRATION. BS CONTROL, IV PROTONIX, BENTYL. CLEAR LIQUIDS, SERUM AND URINE ACETONE (2) Nausea & vomiting Status: Acute (3) Dehydration Status: Acute (4) Diabetes Status: Acute - Allergies Allergies/Adverse Reactions: Allergies Allergy/AdvReac Type Severity Reaction Status Date / Time No Known Drug Allergies Allergy Unknown Unverified 10/08/22 06:52
[2022-11-01] MEDS: PROTONIX INJ 40 MG VIAL IVP SCH ×2 (12:57→21:05)
[2022-11-01] MEDS: ZOFRAN INJ 4 MG VIAL IVP PRN (12:57)
[2022-11-01 12:58] LABS: BASOPHILS % (AUTO) 0.8 % (0.2-1.0); EOSINOPHILS % (AUTO) 0.5 % (0.9-2.9); HEMATOCRIT 35.3 % (36.0-47.0); HEMOGLOBIN 11.7 g/dL (12.0-16.0); LYMPHOCYTES # (AUTO) 1.3 X10^3/uL (1.3-2.9); LYMPHOCYTES % (AUTO) 25.8 % (21.0-51.0); MEAN CORPUSCULAR HEMOGLOBIN 28.7 pg (27.0-34.0); MEAN CORPUSCULAR HGB CONC 33.3 g/dL (33.0-35.0); MEAN CORPUSCULAR VOLUME 86.1 fL (80.0-100.0); MEAN PLATELET VOLUME 7.8 fL (7.4-11.0); MONOCYTES # (AUTO) 0.3 x10^3/uL (0.3-0.8); MONOCYTES % (AUTO) 6.4 % (0.0-13.0); NEUTROPHILS # (AUTO) 3.4 x10^3/uL (2.2-4.8); NEUTROPHILS % (AUTO) 66.5 % (42.0-75.0); RED CELL DISTRIBUTION WIDTH 12.6 % (11.6-16.5); WHITE BLOOD COUNT 5.1 X10^3/uL (3.6-10.0)
[2022-11-01 13:03] LABS: SERUM ACETONE NEGATIVE (NEGATIVE)
[2022-11-01 13:05] LABS: ALANINE AMINOTRANSFERASE 26 Units/L (12-78); ALBUMIN 3.4 g/dL (3.4-5.0); ALKALINE PHOSPHATASE 96 Units/L (46-116); ASPARTATE AMINO TRANSFERASE 18 Units/L (15-37); BLOOD UREA NITROGEN 9 mg/dL (7-18); CALCIUM 8.3 mg/dL (8.5-10.1); CHLORIDE 100 mmol/L (98-107); COR NA(FOR HYPERGLY) 143 mmol/L (136-145); CREATININE 0.65 mg/dL (0.55-1.02); SODIUM 140 mmol/L (136-145); TOTAL PROTEIN 7.4 g/dL (6.4-8.2); eGFR NON BLACK RACES > 60 (>60)
[2022-11-01] MEDS ORDERED: POTASSIUM CHL 60 MEQ/NS 0.45% 500 ML IV PRN (13:59)
[2022-11-01] MEDS ORDERED: POTASSIUM CHLORIDE LIQ 20 MEQ UDC PO PRN (13:59)
[2022-11-01] MEDS ORDERED: KLOR-CON PO PRN (13:59)
[2022-11-01] MEDS ORDERED: MICRO K EXTEN CAP 10 MEQ PO PRN (13:59)
[2022-11-01] MEDS ORDERED: POTASSIUM CHL 40 MEQ/NS 0.45% 500 ML IV PRN (13:59)
--- NOTE | 2022-11-01 14:02 | RAD ---
HISTORYABDOMINAL PAINSTUDYACUTE ABDOMEN SERIESCOMPARISONNoneFINDINGSThe cardiomediastinal silhouette is unremarkable. The lungs are clear without evidence of airspace disease or effusion. No pneumothorax. The bony thorax appears intact.Evaluation of the abdomen demonstrates a nonobstructive bowel gas pattern. Cholecystectomy clips. No evidence of pneumoperitoneum. No pathologic soft tissue calcification. The bony structures of the abdomen are intact.IMPRESSION1. No acute cardiopulmonary process.2. No acute abdominal process.Electronically signed by: ANNELIESE DIOP (Nov 01, 2022 14:01:26)
[2022-11-01] MEDS ORDERED: NS 250 ML IV 250 ML IV ONE (14:21)
[2022-11-01] MEDS: MAGNESIUM SULFATE 1 GRAM/100 mL PREMIX 1 G/100 ML BAG IV PRN ×4 (14:28→18:10)
[2022-11-01] MEDS: TORADOL 15 MG VIAL IVP PRN (18:19)
[2022-11-01] MEDS: K-DUR TAB 20 MEQ PO PRN (18:19)
[2022-11-01] MEDS: K-RIDER 10 MEQ/NS 100 ML 10 MEQ/100 ML BAG IV PRN ×2 (21:05→23:35)
[2022-11-01] MEDS: SNACK - Diabetic Appropriate PO SCH (23:53)
[2022-11-02] MEDS: ZOFRAN INJ 4 MG VIAL IVP PRN ×3 (05:15→21:17)
[2022-11-02] MEDS: TORADOL 15 MG VIAL IVP PRN ×2 (05:16→16:15)
[2022-11-02 05:50] LABS: BILIRUBIN,URINE NEGATIVE (NEGATIVE); BLOOD/HEMOGLOBIN,URINE 1+ (NEGATIVE); GLUCOSE, URINE 2+ (NEGATIVE); KETONES,URINE 3+ (NEGATIVE); LEUKOCYTE ESTERASE ,URINE 3+ (NEGATIVE); NITRITES,URINE NEGATIVE (NEGATIVE); PROTEIN,URINE 2+ (NEGATIVE); UROBILINOGEN,URINE NORMAL (NORMAL)
[2022-11-02 05:54] LABS: APPEARANCE,URINE HAZY (CLEAR); COLOR,URINE YELLOW (YELLOW)
[2022-11-02 05:58] LABS: EOSINOPHILS # (AUTO) 0.1 x10^3/uL (0.0-0.2); EOSINOPHILS % (AUTO) 1.8 % (0.9-2.9); HEMATOCRIT 33.9 % (36.0-47.0); HEMOGLOBIN 11.3 g/dL (12.0-16.0); LYMPHOCYTES # (AUTO) 1.9 X10^3/uL (1.3-2.9); LYMPHOCYTES % (AUTO) 40.7 % (21.0-51.0); MEAN CORPUSCULAR HEMOGLOBIN 28.7 pg (27.0-34.0); MEAN CORPUSCULAR HGB CONC 33.3 g/dL (33.0-35.0); MEAN CORPUSCULAR VOLUME 86.2 fL (80.0-100.0); MEAN PLATELET VOLUME 7.9 fL (7.4-11.0); MONOCYTES # (AUTO) 0.4 x10^3/uL (0.3-0.8); MONOCYTES % (AUTO) 8.2 % (0.0-13.0); NEUTROPHILS # (AUTO) 2.3 x10^3/uL (2.2-4.8); NEUTROPHILS % (AUTO) 48.3 % (42.0-75.0); RED BLOOD COUNT 3.93 X10^6/uL (3.5-5.4); RED CELL DISTRIBUTION WIDTH 12.9 % (11.6-16.5); WHITE BLOOD COUNT 4.7 X10^3/uL (3.6-10.0)
[2022-11-02 06:07] LABS: BACTERIA,URINE 2+ /HPF (NEGATIVE); RBC,URINE 0-2 /HPF (0-3); SQUAMOUS EPITHELIAL CELL,UR FEW /HPF (NEGATIVE)
[2022-11-02 06:07] LABS: ALANINE AMINOTRANSFERASE 23 Units/L (12-78); ALKALINE PHOSPHATASE 87 Units/L (46-116); ASPARTATE AMINO TRANSFERASE 20 Units/L (15-37); BLOOD UREA NITROGEN 7 mg/dL (7-18); CALCIUM 8.3 mg/dL (8.5-10.1); CARBON DIOXIDE 31.8 mmol/L (21-32); CHLORIDE 101 mmol/L (98-107); COR CA(FOR HYPOALB) 9.1 mg/dL (8.5-10.1); COR NA(FOR HYPERGLY) 142 mmol/L (136-145); CREATININE 0.62 mg/dL (0.55-1.02); MAGNESIUM 2.4 mg/dL (2.0-2.9); SODIUM 140 mmol/L (136-145); TOTAL PROTEIN 6.6 g/dL (6.4-8.2); eGFR NON BLACK RACES > 60 (>60)
[2022-11-02] MEDS: K-RIDER 10 MEQ/NS 100 ML 10 MEQ/100 ML BAG IV PRN (06:30)
[2022-11-02] MEDS: NS 1,000 ML IV 1,000 ML with POTASSIUM CHLORIDE INJ 10 MEQ VIAL 10 MEQ IV SCH ×6 (09:08→21:32)
[2022-11-02 09:11] LABS: AMYLASE 26 Units/L (25-115); LIPASE 52 Units/L (73-393)
[2022-11-02] MEDS: DONNATAL TAB PO SCH ×3 (09:21→21:16)
[2022-11-02] MEDS: PROTONIX INJ 40 MG VIAL IVP SCH ×2 (09:21→21:29)
[2022-11-02] MEDS: LEVSIN/MAALOX/LIDOC VISC PO SCH ×3 (12:48→21:15)
[2022-11-02 14:54] VITALS: BMI 20.2
[2022-11-02] MEDS: NovoLIN R (or HumuLIN R) SUBCUT PRN (17:22)
[2022-11-02] MEDS: SNACK - Diabetic Appropriate PO SCH (20:52)
[2022-11-02] MEDS: K-DUR TAB 20 MEQ PO PRN (21:16)
[2022-11-03] MEDS: NS 1,000 ML IV 1,000 ML with POTASSIUM CHLORIDE INJ 10 MEQ VIAL 10 MEQ IV SCH ×4 (05:17→11:22)
[2022-11-03] MEDS: ZOFRAN INJ 4 MG VIAL IVP PRN (05:22)
[2022-11-03] MEDS: TORADOL 15 MG VIAL IVP PRN (05:22)
[2022-11-03 05:47] LABS: BASOPHILS % (AUTO) 0.7 % (0.2-1.0); EOSINOPHILS # (AUTO) 0.2 x10^3/uL (0.0-0.2); EOSINOPHILS % (AUTO) 2.8 % (0.9-2.9); HEMATOCRIT 28.9 % (36.0-47.0); HEMOGLOBIN 9.7 g/dL (12.0-16.0); LYMPHOCYTES # (AUTO) 1.4 X10^3/uL (1.3-2.9); LYMPHOCYTES % (AUTO) 21.2 % (21.0-51.0); MEAN CORPUSCULAR HEMOGLOBIN 29.3 pg (27.0-34.0); MEAN CORPUSCULAR HGB CONC 33.7 g/dL (33.0-35.0); MEAN CORPUSCULAR VOLUME 86.9 fL (80.0-100.0); MEAN PLATELET VOLUME 7.8 fL (7.4-11.0); MONOCYTES # (AUTO) 0.4 x10^3/uL (0.3-0.8); MONOCYTES % (AUTO) 6.7 % (0.0-13.0); NEUTROPHILS # (AUTO) 4.5 x10^3/uL (2.2-4.8); NEUTROPHILS % (AUTO) 68.6 % (42.0-75.0); RED BLOOD COUNT 3.33 X10^6/uL (3.5-5.4); RED CELL DISTRIBUTION WIDTH 12.8 % (11.6-16.5); WHITE BLOOD COUNT 6.6 X10^3/uL (3.6-10.0)
[2022-11-03 05:58] LABS: ALANINE AMINOTRANSFERASE 15 Units/L (12-78); ALBUMIN 2.5 g/dL (3.4-5.0); ALKALINE PHOSPHATASE 72 Units/L (46-116); ASPARTATE AMINO TRANSFERASE 13 Units/L (15-37); BLOOD UREA NITROGEN 8 mg/dL (7-18); CALCIUM 7.5 mg/dL (8.5-10.1); CARBON DIOXIDE 30.8 mmol/L (21-32); CHLORIDE 103 mmol/L (98-107); COR CA(FOR HYPOALB) 8.7 mg/dL (8.5-10.1); COR NA(FOR HYPERGLY) 141 mmol/L (136-145); CREATININE 0.74 mg/dL (0.55-1.02); SODIUM 137 mmol/L (136-145); TOTAL PROTEIN 5.5 g/dL (6.4-8.2); eGFR NON BLACK RACES > 60 (>60)
[2022-11-03] MEDS: NovoLIN R (or HumuLIN R) SUBCUT PRN (06:13)
--- NOTE | 2022-11-03 06:41 | RAD ---
HISTORYPRE-OP EGDSTUDYCHEST, 1 [id number]/10/2023.TECHNIQUEPA or AP view of the chestFINDINGSThe cardiac and mediastinal contours are within normal limits. The lungs are clear without focal consolidation or segmental collapse. No pleural effusion or pneumothorax.IMPRESSIONNo acute pulmonary process.Electronically signed by: Walter Baumann (Nov 03, 2022 06:40:00)
[2022-11-03] MEDS: PROTONIX INJ 40 MG VIAL IVP SCH (08:00)
[2022-11-03] MEDS ORDERED: DIPRIVAN VIAL 20 ML ONE (09:13)
[2022-11-03] MEDS ORDERED: NS 500 ML IV 500 ML IV ONE (09:37)
[2022-11-03] MEDS ORDERED: PEPCID 20 MG VIAL ONE (09:45)
[2022-11-03] MEDS ORDERED: REGLAN INJ 10 MG VIAL ONE (09:58)
[2022-11-03] MEDS: LEVSIN/MAALOX/LIDOC VISC PO SCH (11:26)
[2022-11-03 11:54] VITALS: BP 117/85
[2022-11-03] MEDS ORDERED: REGLAN INJ 10 MG VIAL IVP SCH (17:00)
== END 2022-11-03 14:57 | disposition home or self-care (01) ==
LOC: MED/SURG
PROVIDERS: ADMIT Internal Medicine; ATTEND Internal Medicine
DX: K52.89 Other specified noninfective gastroenteritis and colitis; K31.84 Gastroparesis; E11.65 Type 2 diabetes mellitus with hyperglycemia; R11.2 Nausea with vomiting, unspecified; E86.0 Dehydration; B96.29 Other Escherichia coli [E. coli] as the cause of diseases classified elsewhere; R10.13 Epigastric pain; K29.00 Acute gastritis without bleeding; K21.9 Gastro-esophageal reflux disease without esophagitis